=== PATIENT | male | born 1940 | race Caucasian/White ===

== ENCOUNTER 2017-12-15 01:33 | Inpatient (IN) | payer OTHER ==
[2017-12-15] VITALS (14 sets, daily range): BP systolic 111–168; BP diastolic 65–82; PULSE 65–114; TEMP 36.4–37.7; O2SAT 90–97; Ht 170.2 cm; Wt 90.9 kg
[~2017-12-15] VITALS: Ht 170.2 cm; Wt 90.9 kg
[~2017-12-15 01:33] MED LIST: ASPI81TA28 PO; GABA-113 PO; HYDR12.55 PO; INSDGI SC; INSUINJ7 SQ; LISI-461 PO; METF1000 PO; METO25TA56 PO; MULTTAB58 PO; NITR0.4D6 SL; ROSU20TA PO; TAMS0.4C38 PO
[2017-12-15] MEDS ORDERED: FENTANYL CITRATE INJ 50 MCG/1 ML 2 ML VIAL IV STA (01:59)
[2017-12-15] MEDS ORDERED: SODIUM CHLORIDE 0.9% 1000ML 1,000 ML IV STA ×2 (01:59→02:21)
--- NOTE | 2017-12-15 02:03 | EMERGENCY ROOM VISIT NOTE ---
History Report prepared by Sergio: Evelia Price Under the Supervision of: Dr. Fidel Menchaca M.D. 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 He states he has a fever, uncontrollable chills, SOB, shaky hands, and a sore throat which is scratchy. He also notes his tonsils are in pain and the patient notes he has a previous history of infections of his uvula. He denies any chest pain, headache, abdominal pain, diarrhea, or urinary symptoms. 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 No recent antibiotics. Took benoit-seltzer for sore throat without improvement. Nothing makes symptoms better nor worse. 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 A total of 10 systems reviewed and were otherwise negative. Past Medical & Surgical Medical Problems: (1) Colonoscopy (2) Diabetes mellitus type 2 (3) Diabetic peripheral neuropathy (4) DYSFUNCT EUSTACHIAN TUBE (5) History of lumbar laminectomy for decompression of spinal cord (6) Tachycardia (7) Transient ischemic attack Family History Cancer Diabetes mellitus Gallbladder disease Heart disease Hypertension Kidney disease Kidney stones Lung disease Seizures Social History Smoking Status: Never Smoker Smokeless Tobacco Use: No Alcohol Use: none Marital Status: Housing Status: lives alone Occupation Status: retired Current/Historical Medications Scheduled Aspirin (Aspirin Ec), 81 MG PO DAILY Cholecalciferol (Vitamin D3), 1,000 UNITS PO DAILY Gabapentin (Neurontin), 300 MG PO BID Hydrochlorothiazide (Hydrochlorothiazide), 12.5 MG PO DAILY Insulin Glargine (Lantus), 20 UNITS SC QAM Insulin Regular (Human) (Novolin R U-100), SQ UD Lisinopril (Zestril), 20 MG PO DAILY Metformin Hcl (Glucophage), 1,000 MG PO BID Metoprolol Tartrate (Lopressor) (Lopressor), 12.5 MG PO BID Multiple Vitamin (Multivitamin), 1 TAB PO DAILY Nitroglycerin (Nitroglycerin), 0.4 MG SL PRN Rosuvastatin Calcium (Crestor), 20 MG PO DAILY Tamsulosin Hcl (Flomax), 0.4 MG PO DAILY Allergies Coded Allergies: No Known Allergies (Verified , 11/30/17) Physical Exam Vital Signs Date Time Temp Pulse Resp B/P (MAP) Pulse Ox O2 Delivery O2 Flow Rate FiO2 12/15/17 03:44 126 24 144/75 93 Room Air 12/15/17 02:56 120 22 142/80 96 Room Air 12/15/17 01:59 96 Room Air 12/15/17 01:52 123 12/15/17 01:40 36.7 91 26 109/77 97 Room Air Physical Exam GENERAL: Patient is ill and uncomfortable appearing and in moderate distress. Shaking in rigors. EYES: No scleral icterus, unremarkable pupils. ENT: Mucous membranes moist, no nasal congestion. Large prominent uvula that is erythematous and tender to palpation. NECK: No masses appreciated, no meningismus, trachea is midline. RESPIRATORY: No dyspnea. Clear to auscultation and equal bilaterally. No wheeze , no rhonchi. CARDIOVASCULAR: Tachycardic rate and regular rhythm. No murmurs, rubs, gallops appreciated. GASTROINTESTINAL: Abdomen soft, nontender, no peritonitis. Bowel sounds positive. No masses appreciated. BACK: No midline tenderness, no CVA tenderness EXTREMITIES: Normal motion all extremities, no cyanosis, no edema. NEUROLOGIC: Alert and oriented, no acute motor or sensory deficits, no focal weakness, cranial nerves grossly intact. SKIN: No rash, no jaundice, no diaphoresis. Medical Decision & Procedures ER Provider Diagnostic Interpretation: Radiology results and stated below per my review and interpretation: 1 VIEW CHEST Haziness in the right lower lung benitez. New from chest xray 12/2012. Infiltrate versus atelectasis. Nodule in the left perihilar region which is new from previous chest xray. No lobar infiltrate or effusion appreciated. Status post cabbage Laboratory Results 12/15/17 01:50 Red Blood Count 4.59, Mean Corpuscular Volume 91.1, Mean Corpuscular Hemoglobin 30.9, Mean Corpuscular Hemoglobin Concent 34.0, Mean Platelet Volume 11.1, Neutrophils (%) (Auto) 73.1, Lymphocytes (%) (Auto) 17.0, Monocytes (%) (Auto) 5.5, Eosinophils (%) (Auto) 3.8, Basophils (%) (Auto) 0.4, Neutrophils # (Auto) 7.67, Lymphocytes # (Auto) 1.78, Monocytes # (Auto) 0.58, Eosinophils # (Auto) 0.40, Basophils # (Auto) 0.04 12/15/17 01:50 Test 12/15/17 01:50 12/15/17 02:07 12/15/17 02:10 12/15/17 02:16 White Blood Count 10.49 K/uL (4.8-10.8) Red Blood Count 4.59 M/uL (4.7-6.1) Hemoglobin 14.2 g/dL (14.0-18.0) Hematocrit 41.8 % (42-52) Mean Corpuscular Volume 91.1 fL (80-100) Mean Corpuscular Hemoglobin 30.9 pg (25-34) Mean Corpuscular Hemoglobin Concent 34.0 g/dl (32-36) Platelet Count 176 K/uL (130-400) Mean Platelet Volume 11.1 fL (7.4-10.4) Neutrophils (%) (Auto) 73.1 % Lymphocytes (%) (Auto) 17.0 % Monocytes (%) (Auto) 5.5 % Eosinophils (%) (Auto) 3.8 % Basophils (%) (Auto) 0.4 % Neutrophils # (Auto) 7.67 K/uL (1.4-6.5) Lymphocytes # (Auto) 1.78 K/uL (1.2-3.4) Monocytes # (Auto) 0.58 K/uL (0.11-0.59) Eosinophils # (Auto) 0.40 K/uL (0-0.5) Basophils # (Auto) 0.04 K/uL (0-0.2) RDW Standard Deviation 42.0 fL (36.4-46.3) RDW Coefficient of Variation 12.6 % (11.5-14.5) Immature Granulocyte % (Auto) 0.2 % Immature Granulocyte # (Auto) 0.02 K/uL (0.00-0.02) Prothrombin Time 10.3 SECONDS (9.0-12.0) Prothromb Time International Ratio 1.0 (0.9-1.1) Est Creatinine Clear Calc Drug Dose 49.5 ml/min Estimated GFR () 58.9 Estimated GFR (Non- 50.8 BUN/Creatinine Ratio 11.9 (10-20) Calcium Level 8.7 mg/dl (8.5-10.1) Magnesium Level 1.6 mg/dl (1.8-2.4) Total Bilirubin 0.5 mg/dl (0.2-1) Direct Bilirubin 0.2 mg/dl (0-0.2) Aspartate Amino Transf (AST/SGOT) 32 U/L (15-37) Alanine Aminotransferase (ALT/SGPT) 32 U/L (12-78) Alkaline Phosphatase 64 U/L (45-117) Total Creatine Kinase 196 U/L (39-308) Creatine Kinase MB 4.0 ng/ml (0.5-3.6) Creatine Kinase MB Ratio 2.0 (0-3.0) Troponin I < 0.015 ng/ml (0-0.045) Total Protein 7.4 gm/dl (6.4-8.2) Albumin 3.9 gm/dl (3.4-5.0) Procalcitonin 0.06 ng/ml (0-0.5) Bedside Lactic Acid Venous 4.47 mmol/L (0.90-1.70) Bedside Hemoglobin 13.9 g/dl (14.0-18.0) Bedside Hematocrit 41 % (42-52) Bedside Sodium 139 mEq/L (135-144) Bedside Potassium 4.3 mEq/L (3.3-5.0) Bedside Chloride 98 mEq/L (101-112) Bedside Total CO2 27 mEq/l (24-31) Anion Gap 20.0 mmol/L (16-25) Bedside Blood Urea Nitrogen 15 mg/dl (7-18) Bedside Creatinine 1.1 mg/dl (0.6-1.3) Bedside Glucose (other) 157 mg/dl (70-99) Bedside Ionized Calcium (Lawrence) 1.03 mmol/l (1.12-1.32) Test 8/4/18 03:43 Lactic Acid Level 1.5 mmol/L (0.4-2.0) Laboratory results as reviewed by me. Medications Administered Medications (Trade) Dose Ordered Sig/Kerri Route Start Time Stop Time Status Last Admin Dose Admin Fentanyl Citrate (Fentanyl Inj) 50 mcg NOW STAT IV 12/15/17 01:59 12/15/17 02:00 DC 12/15/17 02:03 50 MCG Sodium Chloride 1,000 ml @ 999 mls/hr Q1H1M STAT IV 12/15/17 01:59 12/15/17 02:59 DC 12/15/17 02:03 999 MLS/HR Acetaminophen (Tylenol Tab) 1,000 mg NOW STAT PO 12/15/17 02:09 12/15/17 02:10 DC 12/15/17 02:21 1,000 MG Sodium Chloride 1,000 ml @ 999 mls/hr Q1H1M STAT IV 12/15/17 02:21 12/15/17 03:21 DC 12/15/17 02:27 999 MLS/HR Sodium Chloride 500 ml @ 999 mls/hr Q31M STAT IV 12/15/17 02:21 12/15/17 02:51 DC 12/15/17 02:27 999 MLS/HR Dexamethasone Sodium Phosphate (Dexamethasone Inj Pf) 10 mg NOW ONCE IV 12/15/17 03:00 12/15/17 03:01 DC 12/15/17 02:56 10 MG Piperacillin Sod/ Tazobactam Sod (Zosyn Iv) 4.5 gm NOW STAT IV 12/15/17 02:48 12/15/17 02:50 DC 12/15/17 02:56 4.5 GM Vancomycin HCl 1750 mg/Sodium Chloride 535 ml @ 200 mls/hr ONE STAT IV 12/15/17 02:48 12/15/17 05:28 DC 12/15/17 03:44 200 MLS/HR Magnesium Sulfate 100 ml @ 100 mls/hr NOW STAT IV 12/15/17 03:24 12/15/17 04:23 DC 12/15/17 04:18 100 MLS/HR Metoprolol Tartrate (Lopressor Tab) 12.5 mg 0355 ONCE PO 12/15/17 03:55 12/15/17 05:11 DC 12/15/17 06:07 12.5 MG ECG Per My Interpretation Indication: other (illness) Rate (beats per minute): 125 Rhythm: sinus tachycardia Findings: RBBB, ST depression (Deep, throughout the Septal and Lateral leads), no ectopy, other (poor baseline, no STEMI) Comparison ECG Date: 11/30/2017 Change: When compared to EKG from 11/30/2017, ST depressions and tachycardia are new. ED Course 0155: The patient was evaluated in room A11. A complete history and physical exam was performed. 0159: Ordered Sodium Chloride 1000 ml @ 999 mls/hr IV, Fentanyl 50 mcg IV 0221: Ordered Sodium Chloride 500 ml @ 999 mls/hr IV, Sodium Chloride 1000 ml @ 999 mls/hr IV 0248: Ordered Zosyn Iv 4.5 gm IV 0300: Ordered Dexamethasone Sodium Phosphate 10 mg IV 0313: Discussed the patient's case with Dr. Galeas, [facility] Hospitalist. The patient will be evaluated for further treatment and disposition. Medical Decision Differential: Viral, Pharyngitis, Cellulitis, Pneumonia, Influenza, Meningitis, Sepsis, Bacteremia, UTI/Pyelonephritis, Endocrine, Toxicologic, amongst other pathologies entertained. Septic appearing 77 yr old male arrives in rigors, tachycardia and ill appearing. 2 IVs and fluids started. Lactic acid quite elevated and blood cultures obtained. Emperic abx ordered as well. By exam no clear source of infection though he clearly has quite significant uvulitis. No evidence of pharyngeal abscess by exam. CXR clear. WBC is not at this time elevated, nor does have currently have fever but with tachy, rigors, diaphoresis and elevated lactate this must be presumed sepsis. EKG with tachy and ST depressions. No chest pain and Trop currently negative. Abdomen soft and non-tender. No evidence meningitis/encephalitis. UA clear. Patient vastly improved with IV fluids, Tylenol as well as Fentanyl for sore throat. Furthermore given IV decadron for treatment of enlarged uvula. Tachy did persist though improved. May be pericarditis variant given other viral symptoms but I feel this is unlikely ACS. Hospitalist consulted for further management. Medication Reconcilliation Current Medication List: was personally reviewed by me Consults Time Called: 0255 Consulting Physician: Dr. Galeas, [facility] Hospitalist Returned Call: [phone] Discussed the patient's case with Dr. Galeas, [facility] Hospitalist. The patient will be evaluated for further treatment and disposition. Impression Primary Impression: Sepsis Additional Impressions: Uvulitis Tachycardia Diffuse ST segment depression Critical Care I have personally spent greater than 30 minutes of critical care time in the direct management of this patient. This was a life/limb threatening event. This includes time spent evaluating patient, direct bedside care, chart review, placing orders, interpretation of diagnostic studies, discussion with consultants, patient, and family members, as well as other required patient management activities. This 30 minutes is in excess of all separately billable procedures. Scribe Attestation The scribe's documentation has been prepared under my direction and personally reviewed by me in its entirety. I confirm that the note above accurately reflects all work, treatment, procedures, and medical decision making performed by me. Departure Information Dispostion Being Evaluated By Hospitalist (Dr. Galeas, [facility] Hospitalist) Referrals Favian Calero M.D. (PCP) Patient Instructions My [facility] Sepsis Post Crystalloid Evaluation Date: Dec 15, 2017 Time: 01:55 Capillary Refill Exam Normal (less than 2 seconds) Cardiopulmonary Evaluation Lung Exam: normal breath sounds Heart Exam: + tachycardia Passive Leg Raise Negative (normal) Peripheral Pulse Evaluation Normal Skin Exam Unremarkable Vitals Last Vital Signs Documentation Date Time Temp Pulse Resp B/P (MAP) Pulse Ox O2 Delivery O2 Flow Rate FiO2 12/15/17 03:44 126 24 144/75 93 Room Air 12/15/17 01:40 36.7 Presence Of Severe Sepsis Problem Qualifiers
[2017-12-15] MEDS ORDERED: ACETAMINOPHEN 500 MG TAB PO STA (02:09)
[2017-12-15 02:14] LABS: BASO % 0.4 %; BASO ABS # 0.04 K/uL (0-0.2); EOS % 3.8 %; HEMATOCRIT 41.8 % (42-52); HEMOGLOBIN 14.2 g/dL (14.0-18.0); IG# 0.02 K/uL (0.00-0.02); LYMPH ABS # 1.78 K/uL (1.2-3.4); MEAN CELL VOLUME 91.1 fL (80-100); MEAN CORPUSCULAR HEMOGLOBIN 30.9 pg (25-34); MEAN PLATELET VOLUME 11.1 fL (7.4-10.4); MONO % 5.5 %; MONO ABS # 0.58 K/uL (0.11-0.59); NEUT % 73.1 %; NEUT ABS # 7.67 K/uL (1.4-6.5); PLATELET COUNT 176 K/uL (130-400); RED CELL DISTRIBUTION WIDTH CV 12.6 % (11.5-14.5); WHITE BLOOD COUNT 10.49 K/uL (4.8-10.8)
[2017-12-15] MEDS ORDERED: SODIUM CHLORIDE 0.9% 500ML 500 ML IV STA (02:21)
[2017-12-15 02:25] LABS: ISTAT CREATININE 1.1 mg/dl (0.6-1.3); ISTAT IONIZED CALCIUM 1.03 mmol/l (1.12-1.32); ISTAT POTASSIUM 4.3 mEq/L (3.3-5.0)
[2017-12-15 02:48] LABS: ALBUMIN 3.9 gm/dl (3.4-5.0); ALKALINE PHOSPHATASE 64 U/L (45-117); ALT/SGPT 32 U/L (12-78); AST/SGOT 32 U/L (15-37); BLOOD UREA NITROGEN 16 mg/dl (7-18); CALCIUM 8.7 mg/dl (8.5-10.1); CARBON DIOXIDE 28 mmol/L (21-32); CREATININE 1.33 mg/dl (0.60-1.40); GLUCOSE 145 mg/dl (70-99); SODIUM 140 mmol/L (136-145); TOTAL PROTEIN 7.4 gm/dl (6.4-8.2)
[2017-12-15] MEDS ORDERED: PIPERACILLIN/TAZOBACTAM 4.5 GM/100ML D5W IV STA (02:48)
[2017-12-15] MEDS ORDERED: VANCOMYCIN IV 1,750 MG in SODIUM CHLORIDE 0.9% 500ML 500 ML IV STA (02:48)
[2017-12-15] MEDS ORDERED: DEXAMETHASONE **PF** INJ 10 MG/ML VIAL IV ONE (03:00)
[2017-12-15] MEDS ORDERED: VANCOMYCIN CONSULT ACTIVE PRN (03:00)
[2017-12-15] MEDS ORDERED: MAGNESIUM SULFATE 1GM / D5W 100 ML IV STA (03:24)
[2017-12-15] MEDS ORDERED: LISI-725 PO (03:31)
[2017-12-15] MEDS ORDERED: HYDR12.55 PO (03:41)
[2017-12-15] MEDS ORDERED: GABA-113 PO (03:43)
[2017-12-15] MEDS ORDERED: ROSU20TA PO (03:44)
[2017-12-15] MEDS ORDERED: CHOL1000 PO (03:53)
[2017-12-15] MEDS ORDERED: METOPROLOL TARTRATE 25 MG TAB PO ONE ×2 (03:55→06:45)
[2017-12-15] MEDS ORDERED: DEXTROSE 50% 50 ML SYR IV PRN (04:00)
[2017-12-15] MEDS ORDERED: TRAMADOL HCL 50 MG TAB PO PRN (04:00)
[2017-12-15] MEDS ORDERED: ACETAMINOPHEN 325 MG TAB PO PRN (04:00)
[2017-12-15] MEDS ORDERED: GLUCAGON FOR INJ 1 MG VIAL SQ PRN (04:00)
[2017-12-15] MEDS ORDERED: PROCHLORPERAZINE INJ 5 MG in SYRINGE 4 ML IV PRN (04:00)
[2017-12-15] MEDS ORDERED: LORAZEPAM 2 MG/ML 1 ML VIAL IV PRN (04:00)
[2017-12-15] MEDS ORDERED: MoRPHine SULFATE 4 MG/ML 1 ML CARP\\VIAL IV PRN (04:00)
[2017-12-15] MEDS ORDERED: GLUCOSE 10 TABS/TUBE PO PRN (04:00)
[2017-12-15] MEDS ORDERED: CHLORASEPTIC 1.4% SOLN 180 ML BTL MT PRN (04:00)
[2017-12-15] MEDS ORDERED: LACTATED RINGER'S 1000ML 1,000 ML IV SCH ×2 (04:00→05:15)
[2017-12-15] MEDS ORDERED: CARBOHYDRATES FOR HYPOGLYCEMIA PO PRN (04:00)
[2017-12-15] MEDS ORDERED: NITROGLYCERIN 0.4 MG SL PER TAB CHARGE SL PRN (04:00)
[2017-12-15] MEDS ORDERED: GLUCOSE 40% GEL 15 GM TUBE PO PRN (04:00)
[2017-12-15] MEDS ORDERED: IV FLUIDS COMPLETED PRN (04:15)
[2017-12-15] MEDS ORDERED: OPTIRAY 320 IV PRN (04:15)
[2017-12-15] MEDS ORDERED: LEVALBUTEROL/IPRATROPIUM NEB INH PRN (04:15)
[2017-12-15] MEDS ORDERED: LEVALBUTEROL 1.25MG/0.5ML NEB INH PRN (04:45)
[2017-12-15] MEDS ORDERED: IPRATROPIUM BROMIDE NEB SOLN 0.02% 2.5 ML VIAL INH PRN (04:45)
[2017-12-15] MEDS ORDERED: INSULIN GLARGINE SOLOSTAR 100 UNITS/ML 3 ML PEN SC ONE ×2 (05:30→19:41)
[2017-12-15] MEDS ORDERED: INSULIN ASPART 100 UNITS/ML 3 ML PEN SC ONE (05:30)
[2017-12-15] MEDS ORDERED: CHLORASEPTIC 1.4% SOLN 180 ML BTL MT ONE (05:30)
[2017-12-15] MEDS: ENOXAPARIN 40 MG/0.4 ML SYR SC SCH (06:14)
[2017-12-15] MEDS ORDERED: MAGNESIUM SULFATE 1GM / D5W 100 ML IV ONE (06:45)
--- NOTE | 2017-12-15 06:48 | DIAGNOSTIC IMAGING REPORT ---
CT SCAN OF THE NECK WITH IV CONTRAST CLINICAL HISTORY: Sore throat. Odynophagia. Dyspnea. COMPARISON STUDY: Carotid artery ultrasound dated 12/30/2012. TECHNIQUE: Following the IV administration of 90 cc of Optiray 320, CT scan of the soft tissues of the neck was performed from the skull base to the upper chest. Images are reviewed in the axial, sagittal, and coronal planes. IV contrast was administered without complication. A dose lowering technique was utilized adhering to the principles of ALARA. CT DOSE: 668.91 mGy.cm FINDINGS: Pharynx: The nasopharynx, oropharynx, and laryngeal pharynx are normal in appearance. The pharyngeal airway is widely patent. There is no evidence of mass lesion. The vocal cords are symmetric. The parapharyngeal fat is well maintained. The prevertebral/retropharyngeal soft tissues are within normal limits. The epiglottis is normal. No fluid collection is seen. Lymphadenopathy: No cervical lymphadenopathy is seen Thyroid: Normal in size and attenuation. Salivary glands: The parotid and submandibular glands are within normal limits. Brain parenchyma: The visualized brain parenchyma at the skull base is normal in appearance noting age-related involutional change. Vascular structures: There is advanced atherosclerotic calcification of the carotid arteries. There is approximately 50% stenosis at the origin the right internal carotid artery. The carotid arteries and jugular veins are otherwise clear. Skeletal structures: The skeletal structures are osteopenic. Imaged portions of the calvarium at the skull base are within normal limits. The cervical spine appears intact noting multilevel spondylosis. No lytic or blastic lesion is seen. Orbits: The bony orbits are intact. Orbital contents are normal in appearance noting bilateral ocular lens implants. Sinuses and mastoids: There is a 2.1 cm retention cyst in the left maxillary antrum. Mild mucosal thickening is seen thoracic the frontal, ethmoidal, maxillary, and sphenoid sinuses. The mastoid air cells are well pneumatized. Upper chest: Midline sternotomy wires are noted. Visualized apical lung parenchyma is clear. There is atherosclerotic calcification of the thoracic aorta. IMPRESSION: No acute abnormality is identified. Electronically signed by: Jefe Padilla M.D. 12/15/2017 6:47 AM Dictated Date/Time: 12/15/2017 6:40 AM
[2017-12-15] MEDS: LEVALBUTEROL 1.25MG/0.5ML NEB INH SCH ×3 (07:26→18:46)
[2017-12-15] MEDS: IPRATROPIUM BROMIDE NEB SOLN 0.02% 2.5 ML VIAL INH SCH ×3 (07:26→18:46)
--- NOTE | 2017-12-15 08:51 | HISTORY & PHYSICAL EXAMINATION ---
DATE OF ADMISSION: 12/15/2017 PATIENT'S PRIMARY CARE DOCTOR: Dr. Calero. CHIEF COMPLAINT: Sore throat. HISTORY OF PRESENT ILLNESS: History was obtained from patient and records. Medical history is significant for CAD status post CABG, hx postof AF, chronic systolic/diastolic heart failure (EF 40-50% as outpatient cardiology notes 2012), hypertension, hyperlipidemia, DM2 insulin requiring, TIA as per records, chronic back pain. Recent confinement last December 2012 for syncope, upper respiratory tract infection. Four days history of sore throat, more on the left, odynophagia -possibly from some trauma from swallowing some chips. Patient' s sore throat going to the left ear. Has happened in the past. Some chills, [place] to [place]. No chest pain, no shortness of breath, no abdominal pain. No diarrhea, no dysuria. Cough productive of clear sputum. Fair appetite. Patient seen in the ER. Received IV fluids, Vancomycin and Zosyn for possible sepsis. IV Decadron also given at the ER. MEDICAL HISTORY: As above. SURGERIES: He has had CABG, back surgery, appendectomy. HOME MEDICATIONS: Include lisinopril HCTZ, Neurontin, metformin, Lopressor, tamsulosin, sildenafil, Nitrostat, Lantus, potassium chloride, rosuvastatin, Advil, Viagra. ALLERGIES: No known drug allergies. FAMILY HISTORY: History of heart disease. PERSONAL AND SOCIAL HISTORY: Past tobacco abuse. No EtOH intake. REVIEW OF SYSTEMS: As per HPI, all 10 systems reviewed, all other ROS negative. PHYSICAL EXAMINATION: VITAL SIGNS: Blood pressure was noted to be 109/79, pulse rate 126, RR 24, temperature 36.7, sats 97% on room air. GENERAL: Noted to be anxious, obese, slightly uncomfortable, no respiratory distress, no stridor, intermittent junky coughing spells SKIN: Normal color, warm. HEENT: Partial alopecia. Keener palpebral conjunctivae. No ptosis. abrasion on the left EAC, intact TM. Mild pharyngeal congestion. No trismus. NECK: Short, supple. CHEST: Decreased breath sounds, expiratory wheezes which clear on coughing. ABDOMEN: Distention, nontender. EXTREMITIES: No edema. No tenderness, no other gross deformities. NEUROLOGIC: Coherent, no gross focality. LABORATORY DATA: Hemoglobin is 14.2, hematocrit 41.8, white blood cell count 10.45, platelets 176. Sodium noted to be 140, potassium 4, chloride 102, CO2 28, glucose 145. Procalcitonin was normal. Point of care lactic acid initially 4 later 1.5. Hemoglobin A1c from September 2017 was 8.2. Chest x-ray as per my interpretation, atelectasis, cardiomegaly. UA showed ketones. Lactic acid initially 4. EKG as per my interpretation, rate 125, junctional rhythm, RBBB ASSESSMENT AND PLAN: 1. Tachycardia secondary to viral illness Pharyngitis/bronchitis. 2. Chronic systolic/diastolic heart failure. EF 40-50% from 2013 outpatient Cardiology notes Patient on the dry side. 3. Coronary artery disease status post coronary artery bypass graft. 4. History post CABG AF as per records 5. HTN, stable 6. DM2 on oral meds, suboptimal control as of recent outpatient hemoglobin A1c 7. hx TIA as per records Observation PCU IV fluids, hold home diuretics until patient euvolemic. Supportive measures for viral illness for now CS, hold off on additional antibiotics until definite bacterial focus found. CT neck soft tissue RE sore throat, odynophagia basal insulin, ISS BG goal 140-180. DVT prophylaxis with Lovenox subQ. Full code. Addendum : Upon arrival at the floor around 6 AM, I was made aware by RN of transient burst rapid atrial flutter on the monitor. Increase beta-shree dose dose to 25 mg p.o. twice daily for now TTE, Cardiology consult RE paroxysmal atrial flutter MTDD
[2017-12-15] MEDS: TAMSULOSIN HCL 0.4 MG CAP PO SCH (08:58)
[2017-12-15] MEDS: ASPIRIN 81 MG ECTAB PO SCH (08:58)
[2017-12-15] MEDS: MULTIVITAMIN TAB PO SCH (08:58)
--- NOTE | 2017-12-15 08:58 | DIAGNOSTIC IMAGING REPORT ---
SINGLE VIEW CHEST CLINICAL HISTORY: Fever FINDINGS: An AP, portable, upright chest radiograph is compared to study dated 12/30/2012. The examination is degraded by portable technique and apical lordotic positioning. The patient is status post midline sternotomy. The heart is enlarged and there is atherosclerotic calcification of the thoracic aorta. There are patchy airspace opacities at the right lung base. The lungs are otherwise clear. No large pleural effusion or pneumothorax is seen. The skeletal structures are osteopenic. Degenerative change is seen in the shoulders. The bony thorax is grossly intact. IMPRESSION: 1. Cardiomegaly without radiographic evidence of congestive failure. 2. There are patchy airspace opacities at the right lung base. This could represent atelectasis versus developing pneumonia. Clinical correlation will be required and radiographic follow-up to resolution is recommended. Electronically signed by: Jefe Padilla M.D. 12/15/2017 8:57 AM Dictated Date/Time: 12/15/2017 8:56 AM
[2017-12-15] MEDS: GABAPENTIN 300 MG CAP PO SCH ×2 (09:00→21:23)
[2017-12-15] MEDS ORDERED: LEVALBUTEROL/IPRATROPIUM NEB INH SCH (09:00)
[2017-12-15] MEDS: ROSUVASTATIN CALCIUM 20 MG TAB PO SCH (09:00)
[2017-12-15] MEDS: LISINOPRIL 20 MG TAB PO SCH (09:01)
[2017-12-15] MEDS ORDERED: PERFLUTREN LIPID MICROSPHERE (DEFINITY) IV ONE (09:46)
--- NOTE | 2017-12-15 11:12 | ECHOCARDIOGRAM REPORT ---
*NOTICE TO RECEIVING [employer] This information is strictly Confidential and protected under [place] law. [place] law prohibits you from making any further disclosure of this information unless further disclosure is expressly permitted by the written consent of the person to whom it pertains or is authorized by law. A general authorization for the release of medical or other information is not sufficient for this purpose. Hospital accepts no responsibility if the information is made available to any other person, INCLUDING THE PATIENT. Interpretation Summary * Name: TRAM ABREU Study Date: 12/15/2017 09:20 AM BP: 121/67 mmHg * Patient Location: [facility]\S\N285\S\2 HR: 114 * : 1940 (M/d/yyy) Gender: Male Height: 67 in * Age: 77 yrs Ethnicity: [place] Weight: 202 lb * Ordering Physician: Jose R Galeas * Performed By: Zina Reese RDCS * * Reason For Study: A-FLUTTER * BSA: 2.0 m2 * The study was technically adequate. * Compared to prior study, changes are noted. * -- Conclusions -- * Ejection Fraction = 60-65%. * The left atrium is mildly dilated. * Aortic valve sclerosis mild, without significant aortic valvular stenosis. * There is mild tricuspid regurgitation. * The estimated systolic pulmonary arterial pressure is 42 mmHg. * Grade I diastolic dysfunction, (abnormal relaxation pattern). Procedure Details * A complete two-dimensional transthoracic echocardiogram was performed (2D, M-mode, Doppler and color flow Doppler). * A contrast injection of Definity was performed to improve assessment of LV function. * Contrast was injected into an intravenous site in the left arm. * One vial of Definity ultrasound contrast was diluted in normal saline to a total volume of 10 ml. A total of '1.5' ml of solution was administered during imaging. * Lot # [id number] of Definity utilized for procedure. * Expiration date 11/29. * The attending nurse who injected the contrast agent was YSABEL HOLLINGSWORTH RN. Left Ventricle * The left ventricle is normal in size. * There is normal left ventricular wall thickness. * Ejection Fraction = 60-65%. * Left ventricular systolic function is normal. * No regional wall motion abnormalities noted. Right Ventricle * The right ventricle is normal size. * The right ventricular systolic function is normal as assessed by tricuspid annular plane systolic excursion (TAPSE) (normal >1.5 cm). Atria * The left atrium is mildly dilated. * Right atrial size is normal. * There is no evidence of atrial septal defect, but resolution does not allow assessment for a patent foramen ovale. Mitral Valve * There is moderate mitral annular calcification. * Mild focal calcification involving the tip of the anterior mitral valve leaflet. * There is no mitral valve stenosis. * There is trace mitral regurgitation. Tricuspid Valve * The tricuspid valve is normal. * There is no tricuspid stenosis. * There is mild tricuspid regurgitation. * The estimated systolic pulmonary arterial pressure is 42 mmHg. Aortic Valve * The aortic valve is trileaflet. * Aortic valve sclerosis mild, without significant aortic valvular stenosis. * Aortic stenosis is absent. * There is no significant aortic regurgitation. Pulmonic Valve * The pulmonary valve is not well seen, but the Doppler examination is normal without significant regurgitation or stenosis. Great Vessels * The aortic root is normal size. Pericardium/Pleural * There is no pericardial effusion. Great Vessels * IVC not well-visualized. Left Ventricular Diastolic Function * Grade I diastolic dysfunction, (abnormal relaxation pattern). MMode 2D Measurements and Calculations IVSd 0.95 cm IVSs 1.7 cm LVIDd 4.8 cm LVIDs 3.1 cm LVPWd 1.0 cm LVPWs 1.7 cm IVS/LVPW 0.91 FS 35.8 % EDV(Teich) 107.1 ml ESV(Teich) 37.2 ml EF(Teich) 65.2 % EDV(cubed) 110.0 ml ESV(cubed) 29.1 ml EF(cubed) 73.5 % % IVS thick 76.4 % % LVPW thick 63.4 % LV mass(C)d 168.9 grams LV mass(C)dI 83.2 grams/m\S\2 LV mass(C)s 200.3 grams LV mass(C)sI 98.7 grams/m\S\2 SV(Teich) 69.9 ml SI(Teich) 34.4 ml/m\S\2 SV(cubed) 80.9 ml SI(cubed) 39.8 ml/m\S\2 ACS 1.1 cm LVOT diam 1.7 cm LVOT area 2.2 cm\S\2 LVAd ap4 32.5 cm\S\2 LVLd ap4 8.2 cm EDV(MOD-sp4) 104.2 ml EDV(sp4-el) 109.4 ml LVAs ap4 16.6 cm\S\2 LVLs ap4 6.6 cm ESV(MOD-sp4) 34.1 ml ESV(sp4-el) 35.2 ml EF(MOD-sp4) 67.3 % EF(sp4-el) 67.8 % LVAd ap2 29.6 cm\S\2 LVLd ap2 7.5 cm EDV(MOD-sp2) 98.2 ml EDV(sp2-el) 98.9 ml LVAs ap2 15.5 cm\S\2 LVLs ap2 6.4 cm ESV(MOD-sp2) 30.9 ml ESV(sp2-el) 31.7 ml EF(MOD-sp2) 68.5 % EF(sp2-el) 67.9 % LVLd %diff -8.98 % EDV(MOD-bp) 105.1 ml LVLs %diff -2.98 % ESV(MOD-bp) 32.9 ml EF(MOD-bp) 68.7 % SV(MOD-sp4) 70.1 ml SI(MOD-sp4) 34.5 ml/m\S\2 SV(MOD-sp2) 67.3 ml SI(MOD-sp2) 33.1 ml/m\S\2 SV(MOD-bp) 72.2 ml SI(MOD-bp) 35.6 ml/m\S\2 SV(sp4-el) 74.1 ml SI(sp4-el) 36.5 ml/m\S\2 SV(sp2-el) 67.2 ml SI(sp2-el) 33.1 ml/m\S\2 Doppler Measurements and Calculations MV E max emily 93.9 cm/sec MV A max emily 120.0 cm/sec MV E/A 0.78 MV dec time 0.15 sec Ao V2 max 128.3 cm/sec Ao max PG 6.6 mmHg Ao max PG (full) 1.7 mmHg DOMINIK(V,A) 1.9 cm\S\2 DOMINIK(V,D) 1.9 cm\S\2 LV V1 max PG 4.9 mmHg LV V1 max 110.2 cm/sec MR max emily 420.5 cm/sec MR max PG 71.2 mmHg PA V2 max 82.5 cm/sec PA max PG 2.7 mmHg TR max emily 316.7 cm/sec
[2017-12-15] MEDS: INSULIN ASPART 100 UNITS/ML 3 ML PEN SC SCH ×3 (13:18→21:30)
--- NOTE | 2017-12-15 14:03 | Progress Note ---
Subjective Date of Service: Dec 15, 2017. Subjective Pt evaluation today including: conversation w/ patient, conversation w/ family , physical exam, lab review, review of studies, conversation w/ farm consultant, review of inpatient medication list Saw/examined the patient in room 285 States his throat is improving slightly Coughing more than before; hypoxic as per nursing; requiring 3L of O2 Metoprolol titrated upwards, HRs improving; denies palpitations/chest pain Problem List Medical Problems: (1) Diffuse ST segment depression Status: Acute (2) Hypertension Status: Acute (3) Sepsis Status: Acute (4) Uvulitis Status: Acute Review of Systems Respiratory: + cough, + sputum, + shortness of breath, No wheezing, No dyspnea on exertion, No dyspnea at rest, No hemoptysis Cardiac: No chest pain, No edema, No palpitations Medications Current Inpatient Medications Medications (Trade) Dose Ordered Sig/Kerri Route Start Time Stop Time Status Last Admin Dose Admin Insulin Glargine (Lantus Solostar Pen) 15 units QAM SC 12/16/17 09:00 01/15/18 08:59 Enoxaparin Sodium (Lovenox Inj) 40 mg Q24H SC 12/15/17 06:00 01/14/18 05:59 12/15/17 06:14 40 MG Acetaminophen (Tylenol Tab) 650 mg Q4H PRN PO 12/15/17 04:00 01/14/18 03:59 Nitroglycerin (Nitrostat Tab) 0.4 mg UD PRN SL 12/15/17 04:00 01/14/18 03:59 Insulin Aspart (novoLOG ASPART) SLIDING SCALE If C... ACHS SC 12/15/17 11:00 01/14/18 10:59 12/15/17 13:18 8 UNITS Glucose (Glucose 40% Gel) 15-30 GRAMS 15 GRAMS... UD PRN PO 12/15/17 04:00 01/14/18 03:59 Glucose (Glucose Chew Tab) 4-8 Tablets 4 Tabl... UD PRN PO 12/15/17 04:00 01/14/18 03:59 Dextrose (Dextrose 50% 50ML Syringe) 25-50ML 25ML FOR ... UD PRN IV 12/15/17 04:00 01/14/18 03:59 Glucagon (Glucagon Inj) 1 mg UD PRN SQ 12/15/17 04:00 01/14/18 03:59 Carbohydrates (Carbohydrates For Hypoglycemia) 15-30 GRAMS 15 grams if BSG 54-69... UD PRN PO 12/15/17 04:00 01/14/18 03:59 Prochlorperazine Edisylate 5 mg/ Syringe 5 ml @ 5 mls/min Q6H PRN IV 12/15/17 04:00 01/14/18 03:59 Tramadol HCl (Ultram Tab) 25 mg Q6H PRN PO 12/15/17 04:00 01/14/18 03:59 Morphine Sulfate (MoRPHine SULFATE INJ) 4 mg Q6H PRN IV 12/15/17 04:00 12/29/17 03:59 Lorazepam (Ativan Inj) 0.25 mg Q4H PRN IV 12/15/17 04:00 01/14/18 03:59 Phenol (Chloraseptic 1.4% [place]) 4 sprays Q2H PRN MT 12/15/17 04:00 01/14/18 03:59 Ioversol (Optiray 320) 100 ml UD PRN IV 12/15/17 04:15 12/19/17 04:14 Aspirin (Ecotrin Tab) 81 mg DAILY PO 12/15/17 09:00 01/14/18 08:59 12/15/17 08:58 81 MG Gabapentin (Neurontin Cap) 300 mg BID PO 12/15/17 09:00 01/14/18 08:59 12/15/17 09:00 300 MG Lisinopril (Zestril Tab) 20 mg DAILY PO 12/15/17 09:00 01/14/18 08:59 12/15/17 09:01 20 MG Multivitamins (Multivitamin Tab) 1 tab DAILY PO 12/15/17 09:00 01/14/18 08:59 12/15/17 08:58 1 TAB Rosuvastatin Calcium (Crestor Tab) 20 mg DAILY PO 12/15/17 09:00 01/14/18 08:59 12/15/17 09:00 20 MG Tamsulosin HCl (Flomax Cap) 0.4 mg DAILY PO 12/15/17 09:00 01/14/18 08:59 8/4/18 08:58 0.4 MG Miscellaneous (Iv Fluids Completed) 1 ea PRN PRN N/A 12/15/17 04:15 12/15/18 04:14 Lactated Ringer's 1,000 ml @ 80 mls/hr [id number] IV 12/15/17 05:15 12/15/17 17:44 12/15/17 06:06 80 MLS/HR Ipratropium [place] (Atrovent 0.02% 0.5MG/2.5ML Neb) 0.5 mg Q4H PRN INH 12/15/17 04:45 01/14/18 04:44 Levalbuterol (Xopenex 1.25MG/ 0.5ML Neb) 1.25 mg Q4H PRN INH 12/15/17 04:45 01/14/18 04:44 Metoprolol Tartrate (Lopressor Tab) 25 mg BID PO 12/15/17 21:00 01/14/18 20:59 Ipratropium [place] (Atrovent 0.02% 0.5MG/2.5ML Neb) 0.5 mg Q6R INH 12/15/17 09:00 01/14/18 08:59 12/15/17 07:26 0.5 MG Levalbuterol (Xopenex 1.25MG/ 0.5ML Neb) 1.25 mg Q6R INH 12/15/17 09:00 01/14/18 08:59 12/15/17 07:26 1.25 MG Objective Vital Signs Date Time Temp Pulse Resp B/P (MAP) Pulse Ox O2 Delivery O2 Flow Rate FiO2 12/15/17 13:26 36.7 97 24 168/82 (110) 91 Nasal Cannula 3.0 12/15/17 11:36 37.1 71 20 120/70 (87) 92 12/15/17 07:28 37.0 114 20 121/67 (85) 90 12/15/17 07:26 86 18 96 Room Air 12/15/17 06:50 37.7 104 20 134/72 91 Room Air 12/15/17 06:06 94 124/66 (85) 12/15/17 04:27 119 21 144/75 93 12/15/17 03:44 126 24 144/75 93 Room Air 12/15/17 02:56 120 22 142/80 96 Room Air 12/15/17 01:59 96 Room Air 12/15/17 01:52 123 12/15/17 01:40 36.7 91 26 109/77 97 Room Air Physical Exam General Appearance: no apparent distress Respiratory/Chest: no respiratory distress, no accessory muscle use, + decreased breath sounds Cardiovascular: regular rate, rhythm, no edema, no murmur Extremities: normal inspection, no pedal edema Laboratory Results Last 24 Hours Test 12/15/17 01:50 12/15/17 02:07 12/15/17 02:10 12/15/17 02:16 White Blood Count 10.49 K/uL Red Blood Count 4.59 M/uL Hemoglobin 14.2 g/dL Hematocrit 41.8 % Mean Corpuscular Volume 91.1 fL Mean Corpuscular Hemoglobin 30.9 pg Mean Corpuscular Hemoglobin Concent 34.0 g/dl Platelet Count 176 K/uL Mean Platelet Volume 11.1 fL Neutrophils (%) (Auto) 73.1 % Lymphocytes (%) (Auto) 17.0 % Monocytes (%) (Auto) 5.5 % Eosinophils (%) (Auto) 3.8 % Basophils (%) (Auto) 0.4 % Neutrophils # (Auto) 7.67 K/uL Lymphocytes # (Auto) 1.78 K/uL Monocytes # (Auto) 0.58 K/uL Eosinophils # (Auto) 0.40 K/uL Basophils # (Auto) 0.04 K/uL RDW Standard Deviation 42.0 fL RDW Coefficient of Variation 12.6 % Immature Granulocyte % (Auto) 0.2 % Immature Granulocyte # (Auto) 0.02 K/uL Prothrombin Time 10.3 SECONDS Prothromb Time International Ratio 1.0 Sodium Level 140 mmol/L Potassium Level 4.0 mmol/L Chloride Level 102 mmol/L Carbon Dioxide Level 28 mmol/L Anion Gap 10.0 mmol/L 20.0 mmol/L Blood Urea Nitrogen 16 mg/dl Creatinine 1.33 mg/dl Est Creatinine Clear Calc Drug Dose 49.5 ml/min Estimated GFR () 58.9 Estimated GFR (Non- 50.8 BUN/Creatinine Ratio 11.9 Random Glucose 145 mg/dl Calcium Level 8.7 mg/dl Magnesium Level 1.6 mg/dl Total Bilirubin 0.5 mg/dl Direct Bilirubin 0.2 mg/dl Aspartate Amino Transf (AST/SGOT) 32 U/L Alanine Aminotransferase (ALT/SGPT) 32 U/L Alkaline Phosphatase 64 U/L Total Creatine Kinase 196 U/L Creatine Kinase MB 4.0 ng/ml Creatine Kinase MB Ratio 2.0 Troponin I < 0.015 ng/ml Total Protein 7.4 gm/dl Albumin 3.9 gm/dl Procalcitonin 0.06 ng/ml Bedside Lactic Acid Venous 4.47 mmol/L Bedside Hemoglobin 13.9 g/dl Bedside Hematocrit 41 % Bedside Sodium 139 mEq/L Bedside Potassium 4.3 mEq/L Bedside Chloride 98 mEq/L Bedside Total CO2 27 mEq/l Bedside Blood Urea Nitrogen 15 mg/dl Bedside Creatinine 1.1 mg/dl Bedside Glucose (other) 157 mg/dl Bedside Ionized Calcium ([place]) 1.03 mmol/l Test 12/15/17 03:43 12/15/17 04:00 12/15/17 06:03 12/15/17 07:35 Lactic Acid Level 1.5 mmol/L Urine Color YELLOW Urine Appearance CLEAR Urine pH 8.0 Urine Specific Rainbow 1.016 Urine Protein 1+ Urine Glucose (UA) NEG Urine Ketones 1+ Urine Occult Blood NEG Urine Nitrite NEG Urine Bilirubin NEG Urine Urobilinogen NEG Urine Leukocyte Esterase NEG Urine WBC (Auto) 1-5 /hpf Urine RBC (Auto) 0-4 /hpf Urine Hyaline Casts (Auto) 1-5 /lpf Urine Epithelial Cells (Auto) 10-20 /lpf Urine Bacteria (Auto) NEG Urine Sperm (Auto) PRESENT Bedside Glucose 220 mg/dl 224 mg/dl Test 12/15/17 11:26 Bedside Glucose 258 mg/dl Assessment and Plan This is a 77 year old male with a past medical history of CAD s/p CABG, post-op atrial fibrillation, HTN, HLD, insulin dependent DM2, hx. of TIA - presents with sore throat, has had recurrent throat infections Viral Pharyngitis? Hypoxia - patient with hypoxic episode into the 60s-70s - improved with 3L of O2 - states he's had sore throat/infections in the past, uses azithromycin for it at times as needed - will start Unasyn due to possible aspiration - O2 as needed - duonebs as needed - will hold off on any steroid use Transient Atrial Flutter/Atrial Fibrillation - appreciate cardiology input - atrial flutter/fibrillation on tele - b-shree increased - if recurrent AF; will start IV heparin with transition to oral anticoagulant CAD s/p CABG - no acute coronary issues - continue aspirin, statin, b-shree Insulin Dependent DM2 - received IV Decadron in the ER; causing elevated BSGs - currently on Lantus 15 units in the AM and a sliding scale - monitor and adjust as needed HTN - b-shree dose increased - Lisinopril 20mg daily - patient requesting to d/c HCTZ as an outpatient medication; will monitor BP and likely adjust Lisinopril if needed DVT ppx - Lovenox FULL CODE
--- NOTE | 2017-12-15 14:20 | CARDIOLOGY CONSULTATION ---
DATE OF CONSULTATION: 12/15/2017 CARDIOLOGY CONSULTATION PRIMARY CARE PHYSICIAN: Dr. Favian Calero. REFERRING PHYSICIAN: Dr. Jose R Galeas. REASON FOR CONSULTATION: Tachycardia. CHIEF COMPLAINT ON ADMISSION: Scratchy throat, illness, fever or chills. HISTORY OF PRESENT ILLNESS: Mr. Enriquez is a 77-year-old gentleman who complains of feeling ill approximately 5 days prior to arrival. Notes subjective fevers, uncontrollable chills and rigors. Reports cough with scant sputum production as well as a significant throat discomfort described as a scratchy sensation. He has experienced these symptoms in the past which were successfully treated with antibiotics. Denies chest pain, shortness of breath, or palpitations. Upon arrival to the ER, he was noted to be tachycardic with a heart rate of approximately 125 beats per minute. Review of ECG and telemetry strips demonstrates atrial flutter with primarily 2:1 conduction. He then converted to atrial fibrillation at approximately 6:28 a.m. today. Patient ultimately converted to sinus rhythm at 8:10 a.m. Remains in sinus rhythm at this time. Fevers recorded overnight. Feeling somewhat better since admission. REVIEW OF SYSTEMS: The pertinent positive noted above, a comprehensive 10-system review is otherwise negative. PAST MEDICAL HISTORY: 1. Coronary artery disease status post coronary artery bypass grafting. 2. Diabetes with neuropathy. 3. Myocardial infarction. 4. TIA. 5. Spinal stenosis. 6. Postoperative paroxysmal atrial fibrillation. PAST SURGICAL HISTORY: 1. Coronary artery bypass grafting. 2. Lumbar laminectomy and decompression. 3. Colonoscopy. FAMILY HISTORY: Negative for premature CAD or sudden cardiac . SOCIAL HISTORY: Lifelong nonsmoker. He is and lives alone. ALLERGIES: No known drug allergies. HOME MEDICATIONS: 1. Aspirin 81 mg daily. 2. Neurontin 300 mg twice daily. 3. Hydrochlorothiazide 12.5 mg daily. 4. Lantus 20 units in the a.m. 5. Novolin subQ daily. 6. Zestril 20 mg daily. 7. Glucophage 1000 mg twice daily. 8. Lopressor 12.5 mg twice daily. 9. Multivitamin daily. 10. Sublingual nitroglycerin as needed. 11. Rosuvastatin 20 mg daily. 12. Flomax 0.4 mg daily. LABORATORY DATA: Troponin undetectable x1 set. Sodium 139, potassium 4.3, chloride 98, CO2 is 27, BUN is 15, creatinine is 1.1. Lactic acid 1.5, point of care lactic acid 4.47. Serum magnesium of 1.6. White blood cell count 10.49, hemoglobin 13.9, platelet count 176, neutrophils 7.67. INR is 1.0. Chest x-ray on admission: No evidence of congestive heart failure. Patchy airspace opacity at the right base, possible atelectasis versus early pneumonia. PHYSICAL EXAMINATION: VITAL SIGNS: Temperature is 37.7 degrees centigrade, pulse 86 beats per minute and regular, respiratory rate 20 breaths per minute, blood pressure 121/67, SAO2 is 90% on room air. GENERAL: NAD, awake, alert and oriented x3. HEENT: His mucous membranes are moist. No scleral icterus. Conjunctivae are pink. NECK: Supple, mildly tender. There is no carotid bruit. HEART: Regular with a normal S1 and S2. No murmur appreciated. LUNGS: Demonstrate scattered rhonchi with expiratory wheezing bilaterally. No rales. ABDOMEN: Soft, nontender. No rebound or guarding. EXTREMITIES: Warm and dry without clubbing, cyanosis or edema. NEUROLOGIC: Demonstrates no focal motor deficit. FINAL IMPRESSION: 1. Paroxysmal atrial flutter/fibrillation with spontaneous conversion to sinus rhythm. Dysrhythmia likely secondary to febrile illness, acute infectious process and electrolyte derangement. 2. Chronic coronary artery disease with history of prior coronary artery bypass grafting. Repeat echocardiogram demonstrates preserved left ventricular systolic function without regional wall motion abnormality. 3. Diabetes type 2. 4. Pharyngitis and possible community-acquired pneumonia. 5. Right bundle-branch block. PLAN AND RECOMMENDATIONS: The natural history and pathophysiology of atrial fibrillation/flutter discussed with the patient. Dysrhythmia appears to have a reversible cause at this time as noted above. We will monitor telemetry for recurrence. Would recommend addition of intravenous anticoagulation with recurrent episodes during hospitalization with plans for at least short-term anticoagulation if needed. We will continue aspirin at this time. Beta shree titrated to 25 mg twice daily. Other cardiovascular medications will be continued as listed above. Antibiotic therapy and management of pharyngitis/possible community-acquired pneumonia per internal medicine service. Thank you for allowing me to participate in the care of your patient.
[2017-12-15] MEDS: AMPICILLIN/SULBACTAM SOD INJ 3,000 MG in SODIUM CHLORIDE 0.9% 100ML 100 ML IV SCH ×2 (14:31→20:17)
[2017-12-15] MEDS ORDERED: METOPROLOL TARTRATE 25 MG TAB PO SCH (21:00)
[2017-12-15] MEDS: METOPROLOL TARTRATE 25 MG TAB PO SCH (21:24)
[2017-12-16] VITALS (12 sets, daily range): BP systolic 115–159; BP diastolic 66–77; PULSE 59–76; TEMP 36.4–36.8; O2SAT 94–100
[2017-12-16] MEDS: IPRATROPIUM BROMIDE NEB SOLN 0.02% 2.5 ML VIAL INH SCH ×4 (01:40→19:26)
[2017-12-16] MEDS: LEVALBUTEROL 1.25MG/0.5ML NEB INH SCH ×4 (01:40→19:26)
[2017-12-16] MEDS: AMPICILLIN/SULBACTAM SOD INJ 3,000 MG in SODIUM CHLORIDE 0.9% 100ML 100 ML IV SCH ×4 (02:15→20:41)
[2017-12-16] MEDS: ENOXAPARIN 40 MG/0.4 ML SYR SC SCH (05:42)
[2017-12-16 06:12] LABS: BASO % 0.1 %; BASO ABS # 0.01 K/uL (0-0.2); EOS % 0.2 %; EOS ABS # 0.02 K/uL (0-0.5); HEMATOCRIT 35.5 % (42-52); HEMOGLOBIN 11.8 g/dL (14.0-18.0); IG# 0.02 K/uL (0.00-0.02); LYMPH % 11.4 %; LYMPH ABS # 1.17 K/uL (1.2-3.4); MEAN CELL VOLUME 91.5 fL (80-100); MEAN CORPUSCULAR HEMOGLOBIN 30.4 pg (25-34); MEAN CORPUSCULAR HGB CONC 33.2 g/dl (32-36); MEAN PLATELET VOLUME 10.4 fL (7.4-10.4); MONO % 8.4 %; MONO ABS # 0.86 K/uL (0.11-0.59); NEUT % 79.7 %; NEUT ABS # 8.15 K/uL (1.4-6.5); PLATELET COUNT 177 K/uL (130-400); RED CELL DISTRIBUTION WIDTH CV 13.3 % (11.5-14.5); RED CELL DISTRIBUTION WIDTH SD 44.3 fL (36.4-46.3); WHITE BLOOD COUNT 10.23 K/uL (4.8-10.8)
[2017-12-16 06:49] LABS: CALCIUM 7.9 mg/dl (8.5-10.1); CREATININE 1.28 mg/dl (0.60-1.40); POTASSIUM 4.1 mmol/L (3.5-5.1)
[2017-12-16] MEDS: MULTIVITAMIN TAB PO SCH (08:14)
[2017-12-16] MEDS: METOPROLOL TARTRATE 25 MG TAB PO SCH ×2 (08:14→20:41)
[2017-12-16] MEDS: GABAPENTIN 300 MG CAP PO SCH ×2 (08:14→20:41)
[2017-12-16] MEDS: ASPIRIN 81 MG ECTAB PO SCH (08:15)
[2017-12-16] MEDS: TAMSULOSIN HCL 0.4 MG CAP PO SCH (08:15)
[2017-12-16] MEDS: ROSUVASTATIN CALCIUM 20 MG TAB PO SCH (08:15)
[2017-12-16] MEDS: LISINOPRIL 20 MG TAB PO SCH (08:15)
[2017-12-16] MEDS: INSULIN ASPART 100 UNITS/ML 3 ML PEN SC SCH ×4 (08:19→21:00)
[2017-12-16] MEDS: INSULIN GLARGINE SOLOSTAR 100 UNITS/ML 3 ML PEN SC SCH (08:20)
[2017-12-16] MEDS ORDERED: INSULIN GLARGINE SOLOSTAR 100 UNITS/ML 3 ML PEN SC SCH (09:00)
--- NOTE | 2017-12-16 11:48 | Cardiology Follow-Up ---
Subjective General Date of Service: Dec 16, 2017. Pt evaluation today including: conversation w/ patient, physical exam, chart review, lab review, review of studies, conversation w/ business info consultant, review of inpatient medication list History of Present Illness The patient is a 77 year old male seen in follow-up. Feeling better today. Odynophagia improving. Reports cough with scant sputum production. Mild expiratory wheezing noted. Denies chest pain or palpitations. No recurrent atrial fibrillation over the last 24 hours. Offers no new complaints at this time. Allergies Coded Allergies: No Known Allergies (Verified , 11/30/17) Social History Smoking Status: Former Smoker Hx Tobacco Use In Past Year?: No Hx Alcohol Use - Type And Amou: No Hx Substance Use - Type And Am: No Problem List Medical Problems: (1) Diffuse ST segment depression Status: Acute (2) Hypertension Status: Acute (3) Sepsis Status: Acute (4) Uvulitis Status: Acute Review of Systems Respiratory: + cough, + sputum, + dyspnea on exertion, No wheezing, No shortness of breath, No dyspnea at rest, No hemoptysis Cardiac: No chest pain, No orthopnea, No PND, No edema, No claudication, No palpitations Physical Exam Vital Signs Last Vital Signs Documentation Date Time Temp Pulse Resp B/P (MAP) Pulse Ox O2 Delivery O2 Flow Rate FiO2 12/16/17 11:12 36.8 61 20 159/77 (104) 100 12/16/17 07:19 Nasal Cannula 2.0 Physical Exam Constitutional: General Apperance: heathly-appearing Level of Distress: NAD Head: normocephalic ENMT: normal ENT inspection Neck: supple Lungs: Auscultation: expiratory wheezing, rhonchi Cardiovascular: Heart Auscultation: RRR, normal S1, normal S2, no murmurs Peripheral Pulses: Radial Pulse: normal on the left, normal on the right Abdomen: Inspection & Palpation: soft, non-distended, no tenderness, guarding & rebound Extremities: no cyanosis, no edema, no clubbing, no ulcers Neurologic: Gait & Station: pertinent finding (No focal motor deficit) Cranial Nerves: grossly intact Assessment and Plan Assessment and Plan FINAL IMPRESSION: 1. Paroxysmal atrial flutter/fibrillation with spontaneous conversion to sinus rhythm. No recurrence over the past 24 hours. Dysrhythmia likely secondary to febrile illness, acute infectious process and electrolyte derangement. 2. Chronic coronary artery disease with history of prior coronary artery bypass grafting. Stable without angina. Repeat echocardiogram demonstrates preserved left ventricular systolic function without regional wall motion abnormality. 3. Diabetes type 2. 4. Pharyngitis and possible community-acquired pneumonia. 5. Right bundle-branch block. PLAN AND RECOMMENDATIONS: The natural history and pathophysiology of atrial fibrillation/flutter discussed with the patient. No recurrence over the past 24 hours of treatment of pharyngitis, community acquired pneumonia, and electrolyte derangement. Patient is improving clinically. We will continue to monitor telemetry. Continue current dose of metoprolol. Plan for outpatient 14 day ZIO monitor to assess for asymptomatic recurrence of atrial fibrillation. Findings and recommendations discussed with patient. All questions answered to his satisfaction. Laboratory Results Last 24 Hours Test 12/15/17 16:06 12/15/17 20:46 12/16/17 05:45 12/16/17 07:42 Bedside Glucose 319 mg/dl 272 mg/dl 137 mg/dl White Blood Count 10.23 K/uL Red Blood Count 3.88 M/uL Hemoglobin 11.8 g/dL Hematocrit 35.5 % Mean Corpuscular Volume 91.5 fL Mean Corpuscular Hemoglobin 30.4 pg Mean Corpuscular Hemoglobin Concent 33.2 g/dl Platelet Count 177 K/uL Mean Platelet Volume 10.4 fL Neutrophils (%) (Auto) 79.7 % Lymphocytes (%) (Auto) 11.4 % Monocytes (%) (Auto) 8.4 % Eosinophils (%) (Auto) 0.2 % Basophils (%) (Auto) 0.1 % Neutrophils # (Auto) 8.15 K/uL Lymphocytes # (Auto) 1.17 K/uL Monocytes # (Auto) 0.86 K/uL Eosinophils # (Auto) 0.02 K/uL Basophils # (Auto) 0.01 K/uL RDW Standard Deviation 44.3 fL RDW Coefficient of Variation 13.3 % Immature Granulocyte % (Auto) 0.2 % Immature Granulocyte # (Auto) 0.02 K/uL Sodium Level 139 mmol/L Potassium Level 4.1 mmol/L Chloride Level 106 mmol/L Carbon Dioxide Level 28 mmol/L Anion Gap 5.0 mmol/L Blood Urea Nitrogen 22 mg/dl Creatinine 1.28 mg/dl Est Creatinine Clear Calc Drug Dose 51.2 ml/min Estimated GFR () 61.7 Estimated GFR (Non- 53.3 BUN/Creatinine Ratio 17.0 Random Glucose 133 mg/dl Calcium Level 7.9 mg/dl Magnesium Level 2.2 mg/dl Test 12/16/17 11:22 Bedside Glucose 283 mg/dl
[2017-12-16] MEDS: HYDROCODONE/HOMATROPINE SYRUP 5MG/1.5MG 5ML UDP PO PRN ×2 (15:09→23:12)
--- NOTE | 2017-12-16 17:11 | Progress Note ---
Internal Med Progress Note Date of Service: Dec 16, 2017. Provider Documentation: SUBJECTIVE: The patient was seen and examined in telemetry unit He was admitted with them severe sore throat and also noted to have atrial fibrillation with RVR He has been feeling a lot better following intravenous antibiotic and cardiac care Feels a lot better today Minimal pain on swallowing OBJECTIVE: Vital Signs-as noted below Exam: General-no apparent distress Eyes-normal ENT-normal Neck-supple, minimal tenderness tonsillar radius on either side Lungs-clear to auscultate bilaterally Heart-regular, no murmur appreciated Abdomen-benign Extremities-negative for any edema Neuro-alert, awake and oriented 3 No focal sensory and motor deficit appreciated Lab data as noted below. ASSESSMENT & PLAN: This is a 77 year old male with a past medical history of CAD s/p CABG, post-op atrial fibrillation, HTN, HLD, insulin dependent DM2, hx. of TIA - presents with sore throat, has had recurrent throat infections Acute Pharyngitis-likely viral With Hypoxia - patient with hypoxic episode into the 60s-70s - improved with 3L of O2 - states he's had sore throat/infections in the past, uses azithromycin for it at times as needed - will start Unasyn due to possible aspiration -Throat soft negative for any beta strep -Continue current antibiotic and will change to oral Augmentin on discharge Transient Atrial Flutter/Atrial Fibrillation - appreciate cardiology input - atrial flutter/fibrillation on tele - b-shree increased - if recurrent AF; will start IV heparin with transition to oral anticoagulant -Has been in sinus rhythm -Will observe him overnight and if he remains in sinus rhythm we will go home without any anticoagulation CAD s/p CABG - no acute coronary issues - continue aspirin, statin, b-shree -No acute symptoms Insulin Dependent DM2 - received IV Decadron in the ER; causing elevated BSGs - currently on Lantus 15 units in the AM and a sliding scale - monitor and adjust as needed -Remains a stable HTN - b-shree dose increased - Lisinopril 20mg daily - patient requesting to d/c HCTZ as an outpatient medication; will monitor BP and likely adjust Lisinopril if needed DVT ppx - Lovenox FULL CODE Disposition Likely discharge tomorrow Vital Signs: Date Time Temp Pulse Resp B/P (MAP) Pulse Ox O2 Delivery O2 Flow Rate FiO2 12/16/17 16:00 Room Air 12/16/17 14:56 36.8 73 20 153/73 (99) 96 Room Air 12/16/17 13:59 66 14 96 Room Air 12/16/17 12:18 94 Room Air 12/16/17 12:00 94 Room Air 12/16/17 11:12 36.8 61 20 159/77 (104) 100 12/16/17 08:23 73 12/16/17 07:31 36.6 59 20 146/74 (98) 100 12/16/17 07:19 66 14 95 Nasal Cannula 2.0 12/16/17 03:01 36.4 72 18 115/66 (82) 97 Nasal Cannula 2.0 12/16/17 01:42 64 14 97 Nasal Cannula 2.0 12/16/17 00:20 Nasal Cannula 2.0 12/15/17 23:14 36.4 65 18 129/68 (88) 97 Nasal Cannula 2.0 12/15/17 20:28 37.1 89 20 111/67 (82) 94 2.0 12/15/17 19:13 36.9 95 Nasal Cannula 2.0 12/15/17 18:46 90 20 94 Nasal Cannula 2.5 Lab Results: Results Past 24 Hours Test 12/15/17 20:46 12/16/17 05:45 12/16/17 07:42 12/16/17 11:22 Range/Units Bedside Glucose 272 137 283 70-99 mg/dl White Blood Count 10.23 4.8-10.8 K/uL Red Blood Count 3.88 4.7-6.1 M/uL Hemoglobin 11.8 14.0-18.0 g/dL Hematocrit 35.5 42-52 % Mean Corpuscular Volume 91.5 80-100 fL Mean Corpuscular Hemoglobin 30.4 25-34 pg Mean Corpuscular Hemoglobin Concent 33.2 32-36 g/dl Platelet Count 177 130-400 K/uL Mean Platelet Volume 10.4 7.4-10.4 fL Neutrophils (%) (Auto) 79.7 % Lymphocytes (%) (Auto) 11.4 % Monocytes (%) (Auto) 8.4 % Eosinophils (%) (Auto) 0.2 % Basophils (%) (Auto) 0.1 % Neutrophils # (Auto) 8.15 1.4-6.5 K/uL Lymphocytes # (Auto) 1.17 1.2-3.4 K/uL Monocytes # (Auto) 0.86 0.11-0.59 K/uL Eosinophils # (Auto) 0.02 0-0.5 K/uL Basophils # (Auto) 0.01 0-0.2 K/uL RDW Standard Deviation 44.3 36.4-46.3 fL RDW Coefficient of Variation 13.3 11.5-14.5 % Immature Granulocyte % (Auto) 0.2 % Immature Granulocyte # (Auto) 0.02 0.00-0.02 K/uL Sodium Level 139 136-145 mmol/L Potassium Level 4.1 3.5-5.1 mmol/L Chloride Level 106 98-107 mmol/L Carbon Dioxide Level 28 21-32 mmol/L Anion Gap 5.0 3-11 mmol/L Blood Urea Nitrogen 22 7-18 mg/dl Creatinine 1.28 0.60-1.40 mg/dl Est Creatinine Clear Calc Drug Dose 51.2 ml/min Estimated GFR () 61.7 Estimated GFR (Non- 53.3 BUN/Creatinine Ratio 17.0 10-20 Random Glucose 133 70-99 mg/dl Calcium Level 7.9 8.5-10.1 mg/dl Magnesium Level 2.2 1.8-2.4 mg/dl Test 12/16/17 16:19 Range/Units Bedside Glucose 270 70-99 mg/dl
[2017-12-16] MEDS ORDERED: COUGH DROP (SUGAR FREE) LOZ 24 LOZ/1 BOX LOZ ONE (19:25)
[2017-12-16] MEDS ORDERED: NURSING DECISION MEDICATION ORDER SCH (19:30)
[2017-12-16] MEDS ORDERED: COUGH DROP (SUGAR FREE) LOZ 24 LOZ/1 BOX LOZ PRN (20:00)
[2017-12-17] VITALS (7 sets, daily range): BP systolic 139–153; BP diastolic 54–75; PULSE 59–90; TEMP 36.5–37.1; O2SAT 94–98
[2017-12-17] MEDS: AMPICILLIN/SULBACTAM SOD INJ 3,000 MG in SODIUM CHLORIDE 0.9% 100ML 100 ML IV SCH ×2 (02:21→07:44)
[2017-12-17] MEDS: LEVALBUTEROL 1.25MG/0.5ML NEB INH SCH ×2 (02:31→07:07)
[2017-12-17] MEDS: IPRATROPIUM BROMIDE NEB SOLN 0.02% 2.5 ML VIAL INH SCH ×2 (02:31→07:08)
[2017-12-17] MEDS: ENOXAPARIN 40 MG/0.4 ML SYR SC SCH (06:01)
[2017-12-17 06:25] LABS: CALCIUM 8.6 mg/dl (8.5-10.1); CREATININE 1.09 mg/dl (0.60-1.40); PHOSPHORUS 3.5 mg/dl (2.5-4.9); POTASSIUM 3.8 mmol/L (3.5-5.1)
[2017-12-17] MEDS: INSULIN ASPART 100 UNITS/ML 3 ML PEN SC SCH ×2 (06:30→11:00)
[2017-12-17] MEDS: METOPROLOL TARTRATE 25 MG TAB PO SCH (07:44)
[2017-12-17] MEDS: GABAPENTIN 300 MG CAP PO SCH (07:44)
[2017-12-17] MEDS: ROSUVASTATIN CALCIUM 20 MG TAB PO SCH (07:44)
[2017-12-17] MEDS: ASPIRIN 81 MG ECTAB PO SCH (07:44)
[2017-12-17] MEDS: MULTIVITAMIN TAB PO SCH (07:44)
[2017-12-17] MEDS: LISINOPRIL 20 MG TAB PO SCH (07:44)
[2017-12-17] MEDS: TAMSULOSIN HCL 0.4 MG CAP PO SCH (07:45)
[2017-12-17] MEDS: INSULIN GLARGINE SOLOSTAR 100 UNITS/ML 3 ML PEN SC SCH (07:59)
--- NOTE | 2017-12-17 12:03 | Clinical Documentation Query ---
CLINICAL DOCUMENTATION QUERY 77 year old male who presents to the Emergency Room with complaints of soar throat and SOB. Most recent progress note states patient is on Unasyn for possible aspiration. In your clinical opinion is this patient being managed for: ( + ) Possible aspiration pneumonia ( ) Not Agree ( ) Other explanation of clinical findings (No explanation is considered a No Response) ( ) Unable to determine ( ) Need to Discuss (Phone CDS or qliq) (No discussion is considered a No Response) The medical record reflects the following clinical findings, treatment, and risk factors. Clinical Indicators: hypoxia, fever, tachycardia, CXR with a patchy airspace opacities at the right lung base. This could represent atelectasis versus developing pneumonia Treatment: IV Unasyn Risk Factors: Age, pharyngitis, cough Please clarify and document your clinical opinion in the progress notes and discharge summary. Terms such as "probable", "suspected", "likely", "questionable", "possible", or "still to be ruled out" are acceptable. IF IN AGREEMENT, YOU MUST DOCUMENT ABOVE DIAGNOSTIC STATEMENT IN DAILY PROGRESS NOTES AND DISCHARGE SUMMARY. This document is not part of the patient's record. Thank You, Jake Padilla RN [phone] & via qlicCONNECT
--- NOTE | 2017-12-17 12:20 | Progress Note ---
Internal Med Progress Note Date of Service: Dec 17, 2017. Provider Documentation: SUBJECTIVE: The patient was seen and examined in telemetry unit He was admitted with them severe sore throat and also noted to have atrial fibrillation with RVR He has been feeling a lot better following intravenous antibiotic and cardiac care Feels a lot better today Minimal pain on swallowing 12/17: Denies any symptoms Sore throat is much better and eating normally No more atrial fibrillation OBJECTIVE: Vital Signs-as noted below Exam: General-no apparent distress Eyes-normal ENT-normal Neck-supple, minimal tenderness tonsillar radius on either side Lungs-clear to auscultate bilaterally Heart-regular, no murmur appreciated Abdomen-benign Extremities-negative for any edema Neuro-alert, awake and oriented 3 No focal sensory and motor deficit appreciated Lab data as noted below. ASSESSMENT & PLAN: This is a 77 year old male with a past medical history of CAD s/p CABG, post-op atrial fibrillation, HTN, HLD, insulin dependent DM2, hx. of TIA - presents with sore throat, has had recurrent throat infections Acute Pharyngitis-likely viral Presented with Hypoxia Possible aspiration pneumonia as per CXR likely from ongoing sore throat and difficulty in swallowing - patient with hypoxic episode into the 60s-70s - improved with 3L of O2 - states he's had sore throat/infections in the past, uses azithromycin for it at times as needed - will start Unasyn due to possible aspiration -Throat soft negative for any beta strep -Continue current antibiotic and will change to oral Augmentin on discharge -Clinically a lot better will continue Augmentin for 3 more days Transient Atrial Flutter/Atrial Fibrillation - appreciate cardiology input - atrial flutter/fibrillation on tele - b-shree increased - if recurrent AF; will start IV heparin with transition to oral anticoagulant -Has been in sinus rhythm -Will observe him overnight and if he remains in sinus rhythm we will go home without any anticoagulation -No more recurrence of A. fib -We will have CardioNet monitor as an outpatient and continue beta-shree CAD s/p CABG - no acute coronary issues - continue aspirin, statin, b-shree -No acute symptoms Insulin Dependent DM2 - received IV Decadron in the ER; causing elevated BSGs - currently on Lantus 15 units in the AM and a sliding scale - monitor and adjust as needed -Remains a stable HTN - b-shree dose increased - Lisinopril 20mg daily - patient requesting to d/c HCTZ as an outpatient medication; will monitor BP and likely adjust Lisinopril if needed DVT ppx - Lovenox FULL CODE Disposition Discharged today Vital Signs: Date Time Temp Pulse Resp B/P (MAP) Pulse Ox O2 Delivery O2 Flow Rate FiO2 12/17/17 11:31 37.1 60 18 139/54 (82) 96 12/17/17 08:00 Room Air 12/17/17 07:24 36.5 64 18 146/75 (98) 98 12/17/17 07:08 67 16 98 Room Air 12/17/17 04:00 36.9 74 20 149/66 (93) 94 Room Air 12/17/17 02:31 90 16 96 Room Air 12/17/17 00:19 36.9 59 20 153/73 (99) 94 Room Air 12/16/17 23:15 Room Air 12/16/17 20:36 36.4 72 18 115/66 (82) 97 Room Air 12/16/17 19:26 76 16 96 Room Air 12/16/17 16:00 Room Air 12/16/17 14:56 36.8 73 20 153/73 (99) 96 Room Air 12/16/17 13:59 66 14 96 Room Air Lab Results: Results Past 24 Hours Test 12/16/17 16:19 12/16/17 20:59 12/17/17 05:31 12/17/17 07:38 Range/Units Bedside Glucose 270 165 90 70-99 mg/dl Sodium Level 143 136-145 mmol/L Potassium Level 3.8 3.5-5.1 mmol/L Chloride Level 106 98-107 mmol/L Carbon Dioxide Level 30 21-32 mmol/L Anion Gap 6.0 3-11 mmol/L Blood Urea Nitrogen 18 7-18 mg/dl Creatinine 1.09 0.60-1.40 mg/dl Est Creatinine Clear Calc Drug Dose 60.4 ml/min Estimated GFR () 75.0 Estimated GFR (Non- 64.7 BUN/Creatinine Ratio 16.6 10-20 Random Glucose 88 70-99 mg/dl Calcium Level 8.6 8.5-10.1 mg/dl Phosphorus Level 3.5 2.5-4.9 mg/dl Magnesium Level 2.1 1.8-2.4 mg/dl Test 12/17/17 11:42 Range/Units Bedside Glucose 113 70-99 mg/dl
[2017-12-17] MEDS ORDERED: AMOX875T PO (12:24)
[2017-12-17] MEDS ORDERED: LPR25 PO (12:24)
--- NOTE | 2017-12-17 12:28 | Discharge Instructions ---
Discharge Instructions Date of Service Dec 17, 2017. Admission Reason for Admission: Tachycardia Discharge Discharge Diagnosis / Problem: PAF-Reverted to SR,Acute Pharyngitis/Bronchitis Discharge Goals Goal(s): Prevent Disease Progression Activity Recommendations Activity Limitations: resume your previous activity . Instructions / Follow-Up Instructions / Follow-Up Dr Arciniega (Abdias is not available) on 12/20/17 at 1:05 PM.Please keep appointment with your Cardiology Current Hospital Diet Patient's current hospital diet: AHA Diet (Heart Healthy), Diabetes Type 2 Diet Discharge Diet Recommended Diet: AHA Diet (Heart Healthy), Diabetes Type 2 Diet Pending Studies Studies pending at discharge: no Medical Emergencies . Who to Call and When: Medical Emergencies: If at any time you feel your situation is an emergency, please call 911 immediately. . Non-Emergent Contact Non-Emergency issues call your: Primary Care Provider . Past History Medical & Surgical History: (1) Acute pharyngitis (2) Paroxysmal atrial fibrillation with rapid ventricular response (3) Uvulitis (4) Diabetes mellitus type 2 . "Provider Documentation" section prepared by Seamus Pisano. .
[2017-12-17] MEDS ORDERED: AMOXICILLIN/CLAVULANATE TAB 875 MG TAB PO ONE (12:30)
--- NOTE | 2017-12-19 09:53 | Discharge Summary ---
Discharge Summary Date of Service Dec 19, 2017. Discharge Summary Admission Date: Dec 16, 2017 at 12:08 Discharge Date: Dec 17, 2017 Principal Diagnosis: PAF-Reverted to SR,Acute Pharyngitis/Bronchitis Secondary Diagnoses/Problems: Please see H&P and Hospital progress note Consultations: Cardiology Medication Reconciliation New Medications: Amoxicillin & Pot Clavulanate (Augmentin 875-125 mg) 1 Tab Tab 875 MG PO BID, #6 TAB Metoprolol Tartrate (Lopressor) 25 Mg Tab 25 MG PO BID for 30 Days, #60 TAB Continued Medications: Aspirin (Aspirin Ec) 81 Mg Tab 81 MG PO DAILY Cholecalciferol (Vitamin D3) 1,000 Unit Tab 1000 UNITS PO DAILY, TAB 3 Refills Gabapentin (Neurontin) 300 Mg Cap 300 MG PO BID Hydrochlorothiazide (Hydrochlorothiazide) 12.5 Mg Tab 12.5 MG PO DAILY, TAB Insulin Glargine (Lantus) 100 Unit/Ml Inj 20 UNITS SC QAM Insulin Regular (Human) (Novolin R U-100) 100 Unit/Ml Inj SQ UD SLINDING SCALE: CORRECTION FACTOR OF 30 WITH GOAL 110-130 1 UNIT 130-160 1 UNIT 161-190 2 UNIT ETC.. Lisinopril (Zestril) 20 Mg Tab 20 MG PO DAILY, TAB Metformin Hcl (Glucophage) 1,000 Mg Tab 1000 MG PO BID Multiple Vitamin (Multivitamin) 1 Tab Tab 1 TAB PO DAILY, TAB Nitroglycerin (Nitroglycerin) 0.4 Mg/Hr Dis 0.4 MG SL PRN 1 TAB EVERY 5 MIN NEEDED UP TO 3 TABS Rosuvastatin Calcium (Crestor) 20 Mg Tab 20 MG PO DAILY, TAB Tamsulosin Hcl (Flomax) 0.4 Mg Cap 0.4 MG PO DAILY Discontinued Medications: Metoprolol Tartrate (Lopressor) (Lopressor) 25 Mg Tab 12.5 MG PO BID 1/2 OF A 25 MG TABLET TWICE DAILY Admission Information HPI (per Admitting provider): DATE OF ADMISSION: 12/15/2017 PATIENT'S PRIMARY CARE DOCTOR: Dr. Calero. CHIEF COMPLAINT: Sore throat. HISTORY OF PRESENT ILLNESS: History was obtained from patient and records. Medical history is significant for CAD status post CABG, hx postof AF, chronic systolic/diastolic heart failure (EF 40-50% as outpatient cardiology notes 2012), hypertension, hyperlipidemia, DM2 insulin requiring, TIA as per records, chronic back pain. Recent confinement last December 2012 for syncope, upper respiratory tract infection. Four days history of sore throat, more on the left, odynophagia -possibly from some trauma from swallowing some chips. Patient' s sore throat going to the left ear. Has happened in the past. Some chills, [place] to [place]. No chest pain, no shortness of breath, no abdominal pain. No diarrhea, no dysuria. Cough productive of clear sputum. Fair appetite. Patient seen in the ER. Received IV fluids, Vancomycin and Zosyn for possible sepsis. IV Decadron also given at the ER. MEDICAL HISTORY: As above. SURGERIES: He has had CABG, back surgery, appendectomy. HOME MEDICATIONS: Include lisinopril HCTZ, Neurontin, metformin, Lopressor, tamsulosin, sildenafil, Nitrostat, Lantus, potassium chloride, rosuvastatin, Advil, Viagra. ALLERGIES: No known drug allergies. FAMILY HISTORY: History of heart disease. PERSONAL AND SOCIAL HISTORY: Past tobacco abuse. No EtOH intake. REVIEW OF SYSTEMS: As per HPI, all 10 systems reviewed, all other ROS negative. PHYSICAL EXAMINATION: VITAL SIGNS: Blood pressure was noted to be 109/79, pulse rate 126, RR 24, temperature 36.7, sats 97% on room air. GENERAL: Noted to be anxious, obese, slightly uncomfortable, no respiratory distress, no stridor, intermittent junky coughing spells SKIN: Normal color, warm. HEENT: Partial alopecia. Day palpebral conjunctivae. No ptosis. abrasion on the left EAC, intact TM. Mild pharyngeal congestion. No trismus. NECK: Short, supple. CHEST: Decreased breath sounds, expiratory wheezes which clear on coughing. ABDOMEN: Distention, nontender. EXTREMITIES: No edema. No tenderness, no other gross deformities. NEUROLOGIC: Coherent, no gross focality. LABORATORY DATA: Hemoglobin is 14.2, hematocrit 41.8, white blood cell count 10.45, platelets 176. Sodium noted to be 140, potassium 4, chloride 102, CO2 28, glucose 145. Procalcitonin was normal. Point of care lactic acid initially 4 later 1.5. Hemoglobin A1c from September 2017 was 8.2. Chest x-ray as per my interpretation, atelectasis, cardiomegaly. UA showed ketones. Lactic acid initially 4. EKG as per my interpretation, rate 125, junctional rhythm, RBBB ASSESSMENT AND PLAN: 1. Tachycardia secondary to viral illness Pharyngitis/bronchitis. 2. Chronic systolic/diastolic heart failure. EF 40-50% from 2013 outpatient Cardiology notes Patient on the dry side. 3. Coronary artery disease status post coronary artery bypass graft. 4. History post CABG AF as per records 5. HTN, stable 6. DM2 on oral meds, suboptimal control as of recent outpatient hemoglobin A1c 7. hx TIA as per records Observation PCU IV fluids, hold home diuretics until patient euvolemic. Supportive measures for viral illness for now CS, hold off on additional antibiotics until definite bacterial focus found. CT neck soft tissue RE sore throat, odynophagia basal insulin, ISS BG goal 140-180. DVT prophylaxis with Lovenox subQ. Full code. Addendum : Upon arrival at the floor around 6 AM, I was made aware by RN of transient burst rapid atrial flutter on the monitor. Increase beta-shree dose dose to 25 mg p.o. twice daily for now TTE, Cardiology consult RE paroxysmal atrial flutter Dictated: 12/15/17 0546 Transcribed: 12/15/17 0851 <Electronically signed by Jose R Galeas M.D.> Signed: 12/15/17 1646 ES Jose R Galeas M.D. Hospital Course This is a 77 year old male with a past medical history of CAD s/p CABG, post-op atrial fibrillation, HTN, HLD, insulin dependent DM2, hx. of TIA - presents with sore throat, has had recurrent throat infections Acute Pharyngitis-likely viral Presented with Hypoxia Possible aspiration pneumonia as per CXR likely from ongoing sore throat and difficulty in swallowing - patient with hypoxic episode into the 60s-70s - improved with 3L of O2 - states he's had sore throat/infections in the past, uses azithromycin for it at times as needed - will start Unasyn due to possible aspiration -Throat soft negative for any beta strep -Continue current antibiotic and will change to oral Augmentin on discharge -Clinically a lot better will continue Augmentin for 3 more days Transient Atrial Flutter/Atrial Fibrillation - appreciate cardiology input - atrial flutter/fibrillation on tele - b-shree increased - if recurrent AF; will start IV heparin with transition to oral anticoagulant -Has been in sinus rhythm -Will observe him overnight and if he remains in sinus rhythm we will go home without any anticoagulation -No more recurrence of A. fib -We will have Card[employer]Net monitor as an outpatient and continue beta-shree CAD s/p CABG - no acute coronary issues - continue aspirin, statin, b-shree -No acute symptoms Insulin Dependent DM2 - received IV Decadron in the ER; causing elevated BSGs - currently on Lantus 15 units in the AM and a sliding scale - monitor and adjust as needed -Remains a stable HTN - b-shree dose increased - Lisinopril 20mg daily - patient requesting to d/c HCTZ as an outpatient medication; will monitor BP and likely adjust Lisinopril if needed DVT ppx - Lovenox FULL CODE Disposition Discharged today Total time spent on discharge = 35 minutes This includes examination of the patient, discharge planning, medication reconciliation, and communication with other providers. Discharge Instructions Date of Service Dec 17, 2017. Admission Reason for Admission: Tachycardia Discharge Discharge Diagnosis / Problem: PAF-Reverted to SR,Acute Pharyngitis/Bronchitis Discharge Goals Goal(s): Prevent Disease Progression Activity Recommendations Activity Limitations: resume your previous activity . Instructions / Follow-Up Instructions / Follow-Up Dr Arciniega (Abdias is not available) on 12/20/17 at 1:05 PM.Please keep appointment with your Cardiology Current Hospital Diet Patient's current hospital diet: AHA Diet (Heart Healthy), Diabetes Type 2 Diet Discharge Diet Recommended Diet: AHA Diet (Heart Healthy), Diabetes Type 2 Diet Pending Studies Studies pending at discharge: no Medical Emergencies . Who to Call and When: Medical Emergencies: If at any time you feel your situation is an emergency, please call 911 immediately. . Non-Emergent Contact Non-Emergency issues call your: Primary Care Provider . Past History Medical & Surgical History: (1) Acute pharyngitis (2) Paroxysmal atrial fibrillation with rapid ventricular response (3) Uvulitis (4) Diabetes mellitus type 2 . "Provider Documentation" section prepared by Seamus Pisano. . <Electronically signed by Seamus Pisano M.D.> Signed: 12/17/17 0327 Signed: Additional Copies To Favian Calero M.D.
== END 2017-12-17 13:27 | disposition home or self-care (01) | DRG 178 ==
LOC: C.EDB 01:34 → C.MED 03:55 → ENRESERV 04:19 → OBSVTOIN 12-16 12:08
PROVIDERS: ADMIT Internal Medicine; ATTEND Internal Medicine
DX: J69.0 Pneumonitis due to inhalation of food and vomit (principal); I48.0 Paroxysmal atrial fibrillation; I48.92 Unspecified atrial flutter; J02.9 Acute pharyngitis, unspecified; K12.2 Cellulitis and abscess of mouth; J20.8 Acute bronchitis due to other specified organisms; E11.40 Type 2 diabetes mellitus with diabetic neuropathy, unspecified; Z86.73 Personal history of transient ischemic attack (TIA), and cerebral infarction without residual deficits; Z79.4 Long term (current) use of insulin; Z79.84 Long term (current) use of oral hypoglycemic drugs; I10 Essential (primary) hypertension; I25.10 Atherosclerotic heart disease of native coronary artery without angina pectoris; Z95.1 Presence of aortocoronary bypass graft; R00.0 Tachycardia, unspecified; I50.42 Chronic combined systolic (congestive) and diastolic (congestive) heart failure; I45.10 Unspecified right bundle-branch block; R09.02 Hypoxemia

== ENCOUNTER 2018-09-22 12:04 | Inpatient (IN) ==
--- OUTSIDE RECORDS SUMMARY | 2018-09-22 12:08 | External Medical Summary | Continuity of Care Document ---
:1940 Author Name Wendie Qiu Address Unavailable Unavailable , Care Team Providers Name Role Phone Jean-Pierre Qiu Unavailable [email or web address] [email or web address] Unavailable Unavailable Unavailable Unavailable Unavailable Problems Difficulty breathing (786.09) (R06.89) Allergies and Adverse Reactions No Known Drug Allergies (Allergy) Medications Medications not documented Procedures Procedures not documented Immunizations Immunizations not documented Plan of Treatment Planned Observations Planned Goals not documented Results No Known Results Results not documented
[2018-09-22] MEDS ORDERED: METOPROLOL TARTRATE 1 MG/ML VIAL IV STA (12:20)
[2018-09-22] MEDS ORDERED: OXYMETAZOLINE 0.05% 30 ML BTL NAE ONE (12:26)
--- NOTE | 2018-09-22 12:35 | XRay Report ---
XR chest 1V portable CLINICAL HISTORY: weakness COMPARISON STUDY: 12/15/2017 FINDINGS: The heart is enlarged. There are postsurgical changes of a midline sternotomy. There is melchor vation interstitium consistent with mild pulmonary vascular congestion. There is no lobar consolidati on. There are no significant pleural effusions.[ IMPRESSION: Cardiomegaly and suspected mild pulmonary vascular congestion. No evidence of lobar conso lidation. Electronically signed by: James Grissom M.D. 09/22/2018 12:34 PM
[2018-09-22 12:56] LABS: Hematocrit (blood only) 39.3 % (42-52); Hemoglobin 13.9 g/dL (14.0-18.0); Mean Corpuscular Hgb Conc 35.4 g/dL (32-36); Mean Corpuscular Volume 89.9 fL (80-100); Mean Platelet Volume 10.4 fL (7.4-10.4); Platelet Count 187 K/uL (130-400); RDW Standard Deviation 42.6 fL (36.4-46.3); Red Blood Count 4.37 M/uL (4.7-6.1); White Blood Count 16.22 K/uL (4.8-10.8)
[2018-09-22 13:08] LABS: INR 1.1 (0.9-1.1); Prothrombin Time 10.8 Seconds (9.0-12.0)
[2018-09-22 13:14] LABS: Albumin Level 3.1 gm/dl (3.4-5.0); BUN Creatinine Ratio 15.8 (10-20); Calcium 8.7 mg/dl (8.5-10.1); Creatinine Clr Calc Pharmacy 52.1 ml/min; Est GFR (African American) 62.9; Est GFR (Non-African American) 54.3; Magnesium 1.6 mg/dl (1.8-2.4); Potassium 4.1 mmol/L (3.5-5.1)
[2018-09-22] MEDS ORDERED: MAGNESIUM SULFATE / D5W 1 GM/100 ML BAG IV ONE (13:20)
[2018-09-22 13:28] LABS: Albumin Globulin Ratio 0.9 (0.9-2); Bilirubin,Total 0.8 mg/dl (0.2-1); Globulin 3.6 gm/dl (2.5-4.0); Total Protein 6.7 gm/dl (6.4-8.2); Troponin I 0.088 ng/ml (0-0.045)
[2018-09-22 13:32] LABS: Basophils # (auto) 0.02 K/uL (0-0.2); Basophils % (auto) 0.1 %; Eosinophils # (auto) 0.04 K/uL (0-0.5); Eosinophils % (auto) 0.2 %; Immature Granulocytes # (auto) 0.03 K/uL (0.00-0.02); Immature Granulocytes % (auto) 0.2 %; Lymphocytes # (auto) 1.42 K/uL (1.2-3.4); Lymphocytes % (auto) 8.8 %; Monocytes # (auto) 1.08 K/uL (0.11-0.59); Monocytes % (auto) 6.7 %; Neutrophils # (auto) 13.63 K/uL (1.4-6.5)
[2018-09-22] MEDS ORDERED: AMPICILLIN/SULBACTAM SOD 3,000 MG in 0.9 % SODIUM CHLORIDE 100 ML IV STA (14:21)
--- NOTE | 2018-09-22 14:46 | History & Physical Report ---
Date of Service September 22, 2018 Assessment & Plan (1) Bronchitis: Acute Bronchitis: Dysphagia: Possible Sepsis Meets SIRS criteria CXR: Cardiomegaly and suspected mild pulmonary vascular congestion. No evidence of lobar consolidation. Neck CT:No acute abnormalities are visualized Check Lactate levels, Influenza Screen Obtain Blood cultures Empirically start on IV Unasyn Speech & Swallow eval Clear liquid diet--advance as tolerated Gentle IV fluids Aspiration Precautions NPO after midnight for possible swallow studies if needed Consider GI eval if necessary Hypomagnesemia: Replace and monitor electrolytes as needed Mild Troponin elevation: Likely demand Ischemia due tachycardia/infection H/O CAD S/P CABG Trend cardiac enzymes patient denies check pain Obtain EKG Check ECHO for wall motion abnormality Continue Aspirin, Statin, Metoprolol, Lisinopril Paroxysmal Atrial Fibrillation: TSH:Normal Previously on Coumadin -Patient wasn't sure why it was discontinued Currently prefers not to be started on anticoagulation for afib continue aspirin Continue Metoprolol 25 mg BID Lopressor PRN DM II: Will hold oral diabetic meds Last A1c:8.3 per patient checked 1 week ago at [place] Continue ISS, basal Insulin Decrease the dose of Lantus given poor oral intake Adjust Insulin therapy as needed Monitor BGs Diabetic Neuropathy Continue gabapentin H/O TIA: Continue aspirin, statin DVT Px: Lovenox SQ Code Status: Full Code Disposition: Expect to discharge home when stable History of Present Illness Chief Complaint: Sore throat/Dysphagia Primary Care Provider: Favian Calero MD Patient is a 77-year-old male with history of DM II, CAD S/P CABG, Spinal stenosis, P.Afib, TIA, BPH and other problems presents with history of worsening sore throat associated with cough with clear expectoration, since 4 days duration. Also reports having fever with chills today. He states having pain w hile swallowing secondary to sore throat. He has not been drinking/eating well due to pain since last 2 days. He was evaluated at [facility] clinic yesterday and strep throat was negative. Feels tired. He reports having similar symptoms due to recurrent throat infections in the past. She states that he recently completed prednisone taper course for back pain and developed having difficulty swallowing since completion of prednisone course. He was noted to be in Afib RVR while in ED and currently not on anticoagulation. Patient was previously on coumadin and was not sure why it was discontinued. Denies any bleeding issues. Currently he prefers NOT to be started on anticoagulation for atrial fibrillation. Follows with [facility]. Denies any history of chest pain, SOB, palpitations, dizziness, pedal edema, hemoptysis, nausea, vomiting, abdominal pain, diarrhea, dysuria, sick contact, recent change in medications. Allergies Allergy/AdvReac Type Severity Reaction Status Date / Time No Known Allergies Allergy Verified 09/22/18 13:48 Home Medications Home Medications Medication Instructions Recorded Confirmed Type acetaminophen [Tylenol Extra 500 mg PO Q6H PRN 09/22/18 09/22/18 History Strength] aspirin 81 mg PO QAM 09/22/18 09/22/18 History gabapentin 300 mg PO BID 09/22/18 09/22/18 History insulin glargine [Lantus U-100 20 unit SUBCUT QAM 09/22/18 09/22/18 History Insulin] insulin regular human [Novolin R 1 sliding scale dose SUBCUT 09/22/18 09/22/18 History Regular U-100 Insuln] USEASDIRECTD lisinopril 20 mg PO QAM 09/22/18 09/22/18 History metformin 1,000 mg PO BIDM 09/22/18 09/22/18 History metoprolol tartrate 25 mg PO BID 09/22/18 09/22/18 History multivitamin 1 tab PO QAM 09/22/18 09/22/18 History rosuvastatin [Crestor] 20 mg PO QAM 09/22/18 09/22/18 History tamsulosin 0.4 mg PO QAM 09/22/18 09/22/18 History vitamin E 0 unit PO QAM 09/22/18 09/22/18 History Past Med/Surg History Medical History Atrial fibrillation Hypertension (Acute) Surgical History S/P CABG (coronary artery bypass graft) (Resolved) Social History Preferred Language: Estonian Communication Ability: Effective 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 Required: No Beliefs That Will Affect Care: None marital status: Current Living Situation: Alone current occupational status: retired Other Information That Helps Us Care for You: No Feels Safe at Home: Yes Safety Concerns: Feels Safe At This Time Smoking Status: Former smoker Do You Dip or Chew Tobacco: No Second Hand Exposure: No Tobacco Cessation Education Requested by Patient: No Hx Alcohol Use: No Hx Substance Use: No Review of Systems Review of Systems: All systems reviewed & are unremarkable except as noted in HPI & below Physical Exam Physical Exam: Physical Exam: Vitals signs as noted above General Appearance:Moderately built and nourished, no apparent distress Head: normocephalic, Atraumatic Eyes: normal inspection, EOMI Neck: supple, Trachea midline Respiratory/Chest: Normal breath sounds, +basal crackles Cardiovascular: Irregularly Irregular, No murmur Abdomen/GI:Soft, Non tender, Bowel sounds present Extremities/Musculoskelatal:normal inspection, no edema Neurologic/Psych:AAOX3, grossly no focal neurological deficits Skin: normal color, warm Results & Data Vital Signs (Past 12 Hours) Vital Signs Temp Pulse Pulse Resp BP BP Pulse Ox 09/22/18 13:50 96 H 24 131/80 93 09/22/18 13:22 102 H 24 161/93 H 93 09/22/18 13:06 102 H 165/88 H 09/22/18 13:05 106 H 24 165/88 H 93 09/22/18 12:52 82 24 160/97 H 94 09/22/18 12:45 94 09/22/18 12:09 36.7 C 109 H 19 105/69 94 Laboratory Results Short CBC 09/22/18 Range/Units 12:41 WBC 16.22 H (4.8-10.8) K/uL Hgb 13.9 L (14.0-18.0) g/dL Hct 39.3 L (42-52) % Plt Count 187 (130-400) K/uL BMP 09/22/18 12:41 Sodium 135 L Potassium 4.1 Chloride 101 Carbon Dioxide 26 BUN 20 H Creatinine 1.26 Glucose 132 H Calcium 8.7 Cardiac Enzymes 09/22/18 Range/Units 12:41 Troponin I 0.088 H* (0-0.045) ng/ml Liver Function 09/22/18 Range/Units 12:41 Total Bilirubin 0.8 (0.2-1) mg/dl AST 24 (15-37) U/L ALT 21 (12-78) U/L Alkaline Phosphatase 61 (45-117) U/L Albumin 3.1 L (3.4-5.0) gm/dl Diagnostic Findings CXR: Cardiomegaly and suspected mild pulmonary vascular congestion. No evidence of lobar consolidation. Neck CT: No acute abnormalities are visualized
--- NOTE | 2018-09-22 15:43 | Emergency Department Note ---
Entered by Virginia Adams acting as a scribe for History of Present Illness General Chief complaint: Illness Stated complaint: SORE THROAT,FEVER,SHAKES,COUGH CONGESTION Source: patient Mode of arrival: ambulatory Limitations: no limitations History of Present Illness Provider complaint: Sore throat Onset (ago): day(s) 3 Location: mouth (throat) Radiation: non-radiation Severity: similar to prior episodes Pain Consistency: + other (worsening) Maximum Pain Intensity: 10 Quality: + other (soreness) Associated symptoms: + cough (productive), + weakness and + other (Additional symptoms: nasal congestion, difficulty swallowing, shakiness) The patient is a 77 year old male with a history of hypertension, atrial fibrillation, and a CABG who presents to the Emergency Room with complaints of a worsening sore throat starting 3 days ago. The patient reports that his sore throat has been accompanied by nasal congestion, a productive cough, and difficulty swallowing. He states that he also has not had anything to eat or drink over the past 2 days, which has caused him to become weak and shaky. He notes that he has come to the hospital for similar illness in the past. Per daughter, the patient went to the [facility] clinic yesterday and was tested negative for strep. She adds that the patient took 2 doses of Benadryl for his symptoms around 0100 today. The patient reports that his PCP is Dr. Calero and his Dr. Clayton is his dining car steward. He states that he takes baby aspirin on a daily basis. Home Medications Home Medications Medication Instructions Recorded Confirmed Type acetaminophen [Tylenol Extra 500 mg PO Q6H PRN 09/22/18 09/22/18 History Strength] aspirin 81 mg PO QAM 09/22/18 09/22/18 History gabapentin 300 mg PO BID 09/22/18 09/22/18 History insulin glargine [Lantus U-100 20 unit SUBCUT QAM 09/22/18 09/22/18 History Insulin] insulin regular human [Novolin R 1 sliding scale dose SUBCUT 09/22/18 09/22/18 History Regular U-100 Insuln] USEASDIRECTD lisinopril 20 mg PO QAM 09/22/18 09/22/18 History metformin 1,000 mg PO BIDM 09/22/18 09/22/18 History metoprolol tartrate 25 mg PO BID 09/22/18 09/22/18 History multivitamin 1 tab PO QAM 09/22/18 09/22/18 History rosuvastatin [Crestor] 20 mg PO QAM 09/22/18 09/22/18 History tamsulosin 0.4 mg PO QAM 09/22/18 09/22/18 History vitamin E 0 unit PO QAM 09/22/18 09/22/18 History Allergies Allergy/AdvReac Type Severity Reaction Status Date / Time No Known Allergies Allergy Verified 09/22/18 13:48 Past Med/Surg History Medical History Atrial fibrillation Hypertension (Acute) Surgical History S/P CABG (coronary artery bypass graft) (Resolved) Social History Preferred Language: Hebrew Communication Ability: Effective Cook Manager Required: No Beliefs That Will Affect Care: None marital status: Current Living Situation: Alone current occupational status: retired Other Information That Helps Us Care for You: No Feels Safe at Home: Yes Safety Concerns: Feels Safe At This Time Smoking Status: Former smoker Do You Dip or Chew Tobacco: No Second Hand Exposure: No Tobacco Cessation Education Requested by Patient: No Hx Alcohol Use: No Hx Substance Use: No Review of Systems See HPI for pertinent positives & negatives. and A total of 10 systems reviewed and were otherwise negative Physical Exam Vital Signs Vital Signs - 24 hr 09/23/18 07:00 09/23/18 07:13 09/23/18 08:00 Temperature 36.3 C L Temperature Source Oral Pulse Rate 68 Pulse Rate [Right Finger] 73 Respiratory Rate 18 Respiratory Effort / Characteristics Non-Labored Spontaneous Respiratory Depth Normal Respiratory Pattern Blood Pressure [Left Arm] 168/72 H Blood Pressure Mean [Left Arm] 104 Blood Pressure Position [Left Arm] Lying Pulse Oximetry 98 Oxygen Delivery Method Nasal Cannula Room Air Oxygen Flow Rate 2 09/23/18 11:06 09/23/18 15:03 09/23/18 15:30 Temperature 36.4 C L 37.1 C Temperature Source Oral Oral Pulse Rate 64 Pulse Rate [Right Finger] 65 69 Respiratory Rate 16 18 Respiratory Effort / Characteristics Respiratory Depth Respiratory Pattern Blood Pressure [Left Arm] 120/69 121/62 Blood Pressure Mean [Left Arm] 86 81 Blood Pressure Position [Left Arm] Lying Lying Pulse Oximetry 93 91 Oxygen Delivery Method Room Air Room Air Oxygen Flow Rate 09/23/18 20:00 09/23/18 20:10 09/23/18 21:02 Temperature 37.7 C H Temperature Source Oral Pulse Rate Pulse Rate [Right Finger] 102 H 95 H Respiratory Rate 20 Respiratory Effort / Characteristics Non-Labored Spontaneous Respiratory Depth Normal Respiratory Pattern Regular Blood Pressure [Left Arm] 152/74 H 117/77 Blood Pressure Mean [Left Arm] 100 90 Blood Pressure Position [Left Arm] Lying Pulse Oximetry 92 Oxygen Delivery Method Room Air Oxygen Flow Rate 09/23/18 22:20 09/23/18 23:14 09/24/18 04:43 Temperature 36.6 C 36.8 C Temperature Source Oral Oral Pulse Rate 89 Pulse Rate [Right Finger] 84 79 Respiratory Rate 20 16 Respiratory Effort / Characteristics Non-Labored Spontaneous Respiratory Depth Normal Respiratory Pattern Regular Blood Pressure [Left Arm] 131/79 132/73 Blood Pressure Mean [Left Arm] 96 92 Blood Pressure Position [Left Arm] Lying Lying Pulse Oximetry 93 95 Oxygen Delivery Method Room Air Room Air Oxygen Flow Rate Vital signs reviewed. General: Somewhat ill-appearing male, in no significant distress. HEENT: No scleral icterus, PERRLA, neck supple. Atraumatic. Posterior oropharnyx is clear. Cardiovascular: Rate controlled and irregular rhythm, no extra sounds. Pulmonary: Clear to auscultation bilaterally, normal work of breathing. Moist cough. Abdomen: Soft, nontender, nondistended, positive bowel sounds. Musculoskeletal: Atraumatic, no peripheral edema. Neurologic: Patient awake alert and oriented x 3, full strength in all 4 extremities. Cranial nerves 2 through 12 grossly intact. Skin: Warm, dry, no rash Course 1218: [facility] and a complete history and physical examination were performed. 1418: I reviewed the patient's case with Shelley Brewer. Marj will evaluate the patient for further management. Consultations Consultation #1: I reviewed the patient's case with Shelley Brewer. Marj will evaluate the patient for further management. Time: 14:18 Administered Medications Acetaminophen (Tylenol) 650 mg PO Q4H PRN PRN Reason: Pain or Fever Stop: 10/22/18 16:45 Last Admin: 09/23/18 17:49 Dose: 650 mg Documented by: [id number] Admin: 09/23/18 08:20 Dose: 650 mg Documented by: [id number] Admin: 09/23/18 03:14 Dose: 650 mg Documented by: [id number] Admin: 09/22/18 17:05 Dose: 650 mg Documented by: [id number] Aspirin (Ecotrin Ectab) 81 mg PO QAM [facility] Stop: 10/23/18 08:59 Last Admin: 09/23/18 08:22 Dose: 81 mg Documented by: [id number] Lidocaine HCl 60 ml/Diphenhydramine HCl 150 mg/ Al Hydrox/Mg Hydrox/Simethicone 60 ml/ Glycerin 60 ml/ BARCODE IDENTIFIER 1 ea 0 ml PO Q4 PRN PRN Reason: throat pain Stop: 10/23/18 08:40 Last Admin: 09/23/18 11:25 Dose: 5 ml Documented by: [id number] Enoxaparin Sodium (Lovenox) 40 mg SQ [facility] Stop: 10/23/18 08:59 Last Admin: 09/23/18 09:35 Dose: 40 mg Documented by: [id number] Gabapentin (Neurontin) 300 mg PO BID [facility] Stop: 10/22/18 20:59 Last Admin: 09/23/18 21:06 Dose: 300 mg Documented by: [id number] Admin: 09/23/18 09:36 Dose: 300 mg Documented by: [id number] Admin: 09/22/18 20:38 Dose: 300 mg Documented by: [id number] Guaifenesin (Mucinex) 600 mg PO Q12 [facility] Stop: 10/23/18 18:29 Last Admin: 09/23/18 21:05 Dose: 600 mg Documented by: [id number] Admin: 09/23/18 19:39 Dose: 600 mg Documented by: [id number] Ampicillin Sodium/Sulbactam Sodium 3,000 mg/ Sodium Chloride 108 mls @ 216 mls/hr IV Q6H [facility]; Protocol Stop: 09/30/18 00:00 Last Infusion: 09/24/18 01:11 Dose: 0 mls/hr Documented by: [id number] Admin: 09/23/18 23:55 Dose: 216 mls/hr Documented by: [id number] Infusion: 09/23/18 18:23 Dose: 0 mls/hr Documented by: [id number] Admin: 09/23/18 17:38 Dose: 216 mls/hr Documented by: [id number] Infusion: 09/23/18 12:13 Dose: 0 mls/hr Documented by: [id number] Admin: 09/23/18 11:26 Dose: 216 mls/hr Documented by: [id number] Infusion: 09/23/18 06:35 Dose: 0 mls/hr Documented by: [id number] Admin: 09/23/18 06:05 Dose: 216 mls/hr Documented by: [id number] Infusion: 09/23/18 00:31 Dose: 0 mls/hr Documented by: [id number] Admin: 09/23/18 00:01 Dose: 216 mls/hr Documented by: [id number] Insulin Aspart (Novolog Flexpen) 0 units SC ACHS [facility] Stop: 10/22/18 16:45 Last Admin: 09/23/18 20:57 Dose: 3 units Documented by: [id number] Cosigned by: [id number] Admin: 09/23/18 17:40 Dose: 6 units Documented by: [id number] Cosigned by: [id number] Admin: 09/23/18 12:50 Dose: 3 units Documented by: [id number] Cosigned by: [id number] Admin: 09/23/18 09:35 Dose: 3 units Documented by: [id number] Cosigned by: [id number] Admin: 09/22/18 20:39 Dose: 4 units Documented by: [id number] Cosigned by: [id number] Admin: 09/22/18 18:19 Dose: Not Given Documented by: [id number] Cosigned by: [id number] Insulin Glargine (Lantus Solostar Pen) 10 units SC BID [facility] Stop: 10/23/18 20:59 Last Admin: 09/23/18 20:55 Dose: 10 units Documented by: [id number] Cosigned by: [id number] Lisinopril (Zestril) 20 mg PO QAM [facility] Stop: 10/23/18 06:29 Last Admin: 09/23/18 06:38 Dose: 20 mg Documented by: [id number] Metoprolol Tartrate (Lopressor) 25 mg PO BID [facility] Stop: 10/23/18 06:29 Last Admin: 09/23/18 21:05 Dose: 25 mg Documented by: [id number] Admin: 09/23/18 06:38 Dose: 25 mg Documented by: [id number] Nystatin (Mycostatin) 5 ml PO QID [facility] Stop: 10/22/18 16:59 Last Admin: 09/23/18 21:06 Dose: 5 ml Documented by: [id number] Admin: 09/23/18 16:21 Dose: 5 ml Documented by: [id number] Admin: 09/23/18 13:59 Dose: Not Given Documented by: [id number] Admin: 09/23/18 08:21 Dose: 5 ml Documented by: [id number] Admin: 09/22/18 20:38 Dose: 5 ml Documented by: [id number] Admin: 09/22/18 18:11 Dose: 5 ml Documented by: [id number] Ondansetron HCl (Zofran) 4 mg IV Q6H PRN PRN Reason: Nausea Stop: 10/22/18 16:45 Last Admin: 09/23/18 03:14 Dose: 4 mg Documented by: [id number] Admin: 09/22/18 17:30 Dose: 4 mg Documented by: [id number] Phenol (Chloraseptic 1.4% Paradox) 1 sprays MT Q4H PRN PRN Reason: Sore Throat Stop: 10/22/18 16:45 Last Admin: 09/22/18 18:30 Dose: 1 sprays Documented by: [id number] Rosuvastatin Calcium (Crestor) 20 mg PO QAM [facility] Stop: 10/23/18 08:59 Last Admin: 09/23/18 08:21 Dose: 20 mg Documented by: [id number] Tamsulosin [facility] ([facility]) [facility] [place]: 10/23/18 08:59 Last Admin: 09/23/18 08:21 Dose: 0.4 mg Documented by: [id number] Discontinued Medications Enoxaparin Sodium (Lovenox) 40 mg SQ QAM [facility] Stop: 10/22/18 16:45 Last Admin: 09/22/18 18:29 Dose: Not Given Documented by: [id number] Heparin Sodium (Porcine) (Heparin Sodium (Porcine)) 5,000 units SQ ONE ONE Stop: 09/22/18 16:47 Last Admin: 09/22/18 18:27 Dose: 5,000 units Documented by: [id number] Cosigned by: [id number] Magnesium Sulfate/Dextrose (Magnesium Sulfate / D5w) 1 gm in 100 mls @ 100 mls/hr IV ONE ONE Stop: 09/22/18 14:19 Last Infusion: 09/22/18 15:09 Dose: 0 mls/hr Documented by: [id number] Admin: 09/22/18 14:05 Dose: 100 mls/hr Documented by: [id number] Ampicillin Sodium/Sulbactam Sodium 3,000 mg/ Sodium Chloride 108 mls @ 200 mls/hr IV NOW STA; Protocol Stop: 09/22/18 14:53 Last Infusion: 09/22/18 15:59 Dose: 0 mls/hr Documented by: [id number] Admin: 09/22/18 15:17 Dose: 200 mls/hr Documented by: [id number] Sodium Chloride (Nss 1000ml) 1,000 mls @ 80 mls/hr IV .[id number] ONE Stop: 09/23/18 05:15 Last Infusion: 09/23/18 06:05 Dose: 0 mls/hr Documented by: [id number] Admin: 09/22/18 17:00 Dose: 80 mls/hr Documented by: [id number] Insulin Glargine (Lantus Solostar Pen) 10 units SC ONCE ONE Stop: 09/23/18 08:46 Last Admin: 09/23/18 09:34 Dose: 10 units Documented by: [id number] Cosigned by: [id number] Lisinopril (Zestril) 20 mg PO QAM [facility] Stop: 10/23/18 08:59 Last Admin: 09/23/18 06:22 Dose: 20 mg Documented by: [id number] Metoprolol Tartrate (Lopressor) 5 mg IV NOW STA Stop: 09/22/18 12:21 Last Admin: 09/22/18 13:06 Dose: 5 mg Documented by: [id number] Metoprolol Tartrate (Lopressor) 25 mg PO BID [facility] Stop: 10/22/18 20:59 Last Admin: 09/22/18 20:38 Dose: 25 mg Documented by: [id number] Oxymetazoline HCl (Afrin 0.05%) 2 sprays BLANCO NOW ONE Stop: 09/22/18 12:27 Last Admin: 09/22/18 13:15 Dose: 2 sprays Documented by: [id number] Perflutren Lipid Microsphere (Definity) 2 ml IV ONCE ONE Stop: 09/23/18 08:58 Last Admin: 09/23/18 08:58 Dose: 2 ml Documented by: [id number] Medical Decision Making Differential Diagnosis Differential diagnosis: Etiologies such as metabolic, infection, hypo/hyperglycemia, electrolyte ab normalities, cardiac sources, intracerebral event, toxicologic, neurologic, as well as others were entertained. Medical Records Attestation: I reviewed the patient's medical records. Home Medications Current Medication List: was personally reviewed by me Laboratory Data Attestation: I reviewed the patient's lab results. Result diagrams: 09/24/18 05:35 09/23/18 03:49 Lab Results 09/22/18 09/22/18 09/22/18 Range/Units 12:41 12:41 12:41 WBC 16.22 H (4.8-10.8) K/uL RBC 4.37 L (4.7-6.1) M/uL Hgb 13.9 L (14.0-18.0) g/dL Hct 39.3 L (42-52) % MCV 89.9 (80-100) fL MCH 31.8 (25-34) pg MCHC 35.4 (32-36) g/dL RDW Std Deviation 42.6 (36.4-46.3) fL RDW Coeff of Dorian 13.0 (11.5-14.5) % Plt Count 187 (130-400) K/uL MPV 10.4 (7.4-10.4) fL Immature Gran % (Auto) 0.2 % Neut % (Auto) 84.0 % Lymph % (Auto) 8.8 % [place] % (Auto) 6.7 % Eos % (Auto) 0.2 % Baso % (Auto) 0.1 % Immature Gran # (Auto) 0.03 H (0.00-0.02) K/uL Neut # (Auto) 13.63 H (1.4-6.5) K/uL Lymph # (Auto) 1.42 (1.2-3.4) K/uL [place] # (Auto) 1.08 H (0.11-0.59) K/uL Eos # (Auto) 0.04 (0-0.5) K/uL Baso # (Auto) 0.02 (0-0.2) K/uL PT 10.8 (9.0-12.0) Seconds INR 1.1 (0.9-1.1) Sodium (136-145) mmol/L Potassium (3.5-5.1) mmol/L Chloride (98-107) mmol/L Carbon Dioxide (21-32) mmol/L Anion Gap (3-11) BUN (7-18) mg/dl Creatinine (0.6-1.4) mg/dl Est Cr Clr Drug Dosing ml/min Est GFR ( Amer) Est GFR (Non-Af Amer) BUN/Creatinine Ratio (10-20) Glucose (70-99) mg/dl POC Glucose (70-99) Lactate (0.4-2.0) mmol/L Calcium (8.5-10.1) mg/dl Magnesium Cancelled Total Bilirubin (0.2-1) mg/dl AST (15-37) U/L ALT (12-78) U/L Alkaline Phosphatase (45-117) U/L Troponin I (0-0.045) ng/ml Total Protein (6.4-8.2) gm/dl Albumin (3.4-5.0) gm/dl Globulin (2.5-4.0) gm/dl Albumin/Globulin Ratio (0.9-2) TSH (0.300-4.500) uIu/ml Urine Color Urine Appearance (Clear) Urine pH (4.5-7.5) Ur Specific [place] (1.000-1.030) Urine Protein (Negative) Urine Glucose (UA) (Negative) Urine Ketones (Negative) Urine Blood (Negative) Urine Nitrite (Negative) Urine Bilirubin (Negative) Urine Urobilinogen (Negative) Ur Leukocyte Esterase (Negative) Urine WBC (Auto) (0-5) /hpf Urine RBC (Auto) (0-4) /hpf U Hyaline Cast (Auto) (0-5) /lpf U Epithel Cells (Auto) (0-5) /lpf Urine Bacteria (Auto) (Negative) Influenza Type A (PCR) (Neg) Influenza Type B (PCR) (Neg) 09/22/18 09/22/18 09/22/18 Range/Units 12:41 16:32 17:13 WBC (4.8-10.8) K/uL RBC (4.7-6.1) M/uL Hgb (14.0-18.0) g/dL Hct (42-52) % MCV (80-100) fL MCH (25-34) pg MCHC (32-36) g/dL RDW Std Deviation (36.4-46.3) fL RDW Coeff of Dorian (11.5-14.5) % Plt Count (130-400) K/uL MPV (7.4-10.4) fL Immature Gran % (Auto) % Neut % (Auto) % Lymph % (Auto) % [place] % (Auto) % Eos % (Auto) % Baso % (Auto) % Immature Gran # (Auto) (0.00-0.02) K/uL Neut # (Auto) (1.4-6.5) K/uL Lymph # (Auto) (1.2-3.4) K/uL [place] # (Auto) (0.11-0.59) K/uL Eos # (Auto) (0-0.5) K/uL Baso # (Auto) (0-0.2) K/uL PT (9.0-12.0) Seconds INR (0.9-1.1) Sodium 135 L (136-145) mmol/L Potassium 4.1 (3.5-5.1) mmol/L Chloride 101 (98-107) mmol/L Carbon Dioxide 26 (21-32) mmol/L Anion Gap 8.0 (3-11) BUN 20 H (7-18) mg/dl Creatinine 1.26 (0.6-1.4) mg/dl Est Cr Clr Drug Dosing 52.1 ml/min Est GFR ( Amer) 62.9 Est GFR (Non-Af Amer) 54.3 BUN/Creatinine Ratio 15.8 (10-20) Glucose 132 H (70-99) mg/dl POC Glucose 183 H (70-99) Lactate 1.7 (0.4-2.0) mmol/L Calcium 8.7 (8.5-10.1) mg/dl Magnesium 1.6 L Total Bilirubin 0.8 (0.2-1) mg/dl AST 24 (15-37) U/L ALT 21 (12-78) U/L Alkaline Phosphatase 61 (45-117) U/L Troponin I 0.088 H* (0-0.045) ng/ml Total Protein 6.7 (6.4-8.2) gm/dl Albumin 3.1 L (3.4-5.0) gm/dl Globulin 3.6 (2.5-4.0) gm/dl Albumin/Globulin Ratio 0.9 (0.9-2) TSH 1.090 (0.300-4.500) uIu/ml Urine Color Urine Appearance (Clear) Urine pH (4.5-7.5) Ur Specific [place] (1.000-1.030) Urine Protein (Negative) Urine Glucose (UA) (Negative) Urine Ketones (Negative) Urine Blood (Negative) Urine Nitrite (Negative) Urine Bilirubin (Negative) Urine Urobilinogen (Negative) Ur Leukocyte Esterase (Negative) Urine WBC (Auto) (0-5) /hpf Urine RBC (Auto) (0-4) /hpf U Hyaline Cast (Auto) (0-5) /lpf U Epithel Cells (Auto) (0-5) /lpf Urine Bacteria (Auto) (Negative) Influenza Type A (PCR) (Neg) Influenza Type B (PCR) (Neg) 09/22/18 09/22/18 09/22/18 Range/Units 19:08 20:32 21:41 WBC (4.8-10.8) K/uL RBC (4.7-6.1) M/uL Hgb (14.0-18.0) g/dL Hct (42-52) % MCV (80-100) fL MCH (25-34) pg MCHC (32-36) g/dL RDW Std Deviation (36.4-46.3) fL RDW Coeff of Dorian (11.5-14.5) % Plt Count (130-400) K/uL MPV (7.4-10.4) fL Immature Gran % (Auto) % Neut % (Auto) % Lymph % (Auto) % [place] % (Auto) % Eos % (Auto) % Baso % (Auto) % Immature Gran # (Auto) (0.00-0.02) K/uL Neut # (Auto) (1.4-6.5) K/uL Lymph # (Auto) (1.2-3.4) K/uL [place] # (Auto) (0.11-0.59) K/uL Eos # (Auto) (0-0.5) K/uL Baso # (Auto) (0-0.2) K/uL PT (9.0-12.0) Seconds INR (0.9-1.1) Sodium (136-145) mmol/L Potassium (3.5-5.1) mmol/L Chloride (98-107) mmol/L Carbon Dioxide (21-32) mmol/L Anion Gap (3-11) BUN (7-18) mg/dl Creatinine (0.6-1.4) mg/dl Est Cr Clr Drug Dosing ml/min Est GFR ( Amer) Est GFR (Non-Af Amer) BUN/Creatinine Ratio (10-20) Glucose (70-99) mg/dl POC Glucose 274 H (70-99) Lactate (0.4-2.0) mmol/L Calcium (8.5-10.1) mg/dl Magnesium Total Bilirubin (0.2-1) mg/dl AST (15-37) U/L ALT (12-78) U/L Alkaline Phosphatase (45-117) U/L Troponin I 0.074 H* (0-0.045) ng/ml Total Protein (6.4-8.2) gm/dl Albumin (3.4-5.0) gm/dl Globulin (2.5-4.0) gm/dl Albumin/Globulin Ratio (0.9-2) TSH (0.300-4.500) uIu/ml Urine Color Urine Appearance (Clear) Urine pH (4.5-7.5) Ur Specific [place] (1.000-1.030) Urine Protein (Negative) Urine Glucose (UA) (Negative) Urine Ketones (Negative) Urine Blood (Negative) Urine Nitrite (Negative) Urine Bilirubin (Negative) Urine Urobilinogen (Negative) Ur Leukocyte Esterase (Negative) Urine WBC (Auto) (0-5) /hpf Urine RBC (Auto) (0-4) /hpf U Hyaline Cast (Auto) (0-5) /lpf U Epithel Cells (Auto) (0-5) /lpf Urine Bacteria (Auto) (Negative) Influenza Type A (PCR) Neg for Influ A (Neg) Influenza Type B (PCR) Neg for Influ B (Neg) 09/22/18 09/23/18 09/23/18 Range/Units 23:05 03:49 03:49 WBC 9.72 (4.8-10.8) K/uL RBC 4.17 L (4.7-6.1) M/uL Hgb 12.9 L (14.0-18.0) g/dL Hct 38.0 L (42-52) % MCV 91.1 (80-100) fL MCH 30.9 (25-34) pg MCHC 33.9 (32-36) g/dL RDW Std Deviation 43.7 (36.4-46.3) fL RDW Coeff of Dorian 13.1 (11.5-14.5) % Plt Count 184 (130-400) K/uL MPV 10.5 H (7.4-10.4) fL Immature Gran % (Auto) % Neut % (Auto) % Lymph % (Auto) % [place] % (Auto) % Eos % (Auto) % Baso % (Auto) % Immature Gran # (Auto) (0.00-0.02) K/uL Neut # (Auto) (1.4-6.5) K/uL Lymph # (Auto) (1.2-3.4) K/uL [place] # (Auto) (0.11-0.59) K/uL Eos # (Auto) (0-0.5) K/uL Baso # (Auto) (0-0.2) K/uL PT (9.0-12.0) Seconds INR (0.9-1.1) Sodium 135 L (136-145) mmol/L Potassium 4.3 (3.5-5.1) mmol/L Chloride 100 (98-107) mmol/L Carbon Dioxide 25 (21-32) mmol/L Anion Gap 10.0 (3-11) BUN 20 H (7-18) mg/dl Creatinine 1.34 (0.6-1.4) mg/dl Est Cr Clr Drug Dosing 49.0 ml/min Est GFR ( Amer) 58.4 Est GFR (Non-Af Amer) 50.4 BUN/Creatinine Ratio 14.9 (10-20) Glucose 254 H (70-99) mg/dl POC Glucose (70-99) Lactate (0.4-2.0) mmol/L Calcium 8.4 L (8.5-10.1) mg/dl Magnesium 2.0 Total Bilirubin (0.2-1) mg/dl AST (15-37) U/L ALT (12-78) U/L Alkaline Phosphatase (45-117) U/L Troponin I 0.085 H* (0-0.045) ng/ml Total Protein (6.4-8.2) gm/dl Albumin (3.4-5.0) gm/dl Globulin (2.5-4.0) gm/dl Albumin/Globulin Ratio (0.9-2) TSH (0.300-4.500) uIu/ml Urine Color Yellow Urine Appearance Clear (Clear) Urine pH 5.0 (4.5-7.5) Ur Specific [place] 1.028 (1.000-1.030) Urine Protein 2+ H (Negative) Urine Glucose (UA) 3+ H (Negative) Urine Ketones 3+ H (Negative) Urine Blood 1+ H (Negative) Urine Nitrite Negative (Negative) Urine Bilirubin Negative (Negative) Urine Urobilinogen Negative (Negative) Ur Leukocyte Esterase Negative (Negative) Urine WBC (Auto) 1-5 (0-5) /hpf Urine RBC (Auto) 5-10 H (0-4) /hpf U Hyaline Cast (Auto) 1-5 (0-5) /lpf U Epithel Cells (Auto) 5-10 H (0-5) /lpf Urine Bacteria (Auto) Negative (Negative) Influenza Type A (PCR) (Neg) Influenza Type B (PCR) (Neg) 09/23/18 09/23/18 09/23/18 Range/Units 07:38 11:28 11:59 WBC (4.8-10.8) K/uL RBC (4.7-6.1) M/uL Hgb (14.0-18.0) g/dL Hct (42-52) % MCV (80-100) fL MCH (25-34) pg MCHC (32-36) g/dL RDW Std Deviation (36.4-46.3) fL RDW Coeff of Dorian (11.5-14.5) % Plt Count (130-400) K/uL MPV (7.4-10.4) fL Immature Gran % (Auto) % Neut % (Auto) % Lymph % (Auto) % [place] % (Auto) % Eos % (Auto) % Baso % (Auto) % Immature Gran # (Auto) (0.00-0.02) K/uL Neut # (Auto) (1.4-6.5) K/uL Lymph # (Auto) (1.2-3.4) K/uL [place] # (Auto) (0.11-0.59) K/uL Eos # (Auto) (0-0.5) K/uL Baso # (Auto) (0-0.2) K/uL PT (9.0-12.0) Seconds INR (0.9-1.1) Sodium (136-145) mmol/L Potassium (3.5-5.1) mmol/L Chloride (98-107) mmol/L Carbon Dioxide (21-32) mmol/L Anion Gap (3-11) BUN (7-18) mg/dl Creatinine (0.6-1.4) mg/dl Est Cr Clr Drug Dosing ml/min Est GFR ( Amer) Est GFR (Non-Af Amer) BUN/Creatinine Ratio (10-20) Glucose (70-99) mg/dl POC Glucose 235 H 249 H (70-99) Lactate (0.4-2.0) mmol/L Calcium (8.5-10.1) mg/dl Magnesium Total Bilirubin (0.2-1) mg/dl AST (15-37) U/L ALT (12-78) U/L Alkaline Phosphatase (45-117) U/L Troponin I 0.056 H* (0-0.045) ng/ml Total Protein (6.4-8.2) gm/dl Albumin (3.4-5.0) gm/dl Globulin (2.5-4.0) gm/dl Albumin/Globulin Ratio (0.9-2) TSH (0.300-4.500) uIu/ml Urine Color Urine Appearance (Clear) Urine pH (4.5-7.5) Ur Specific [place] (1.000-1.030) Urine Protein (Negative) Urine Glucose (UA) (Negative) Urine Ketones (Negative) Urine Blood (Negative) Urine Nitrite (Negative) Urine Bilirubin (Negative) Urine Urobilinogen (Negative) Ur Leukocyte Esterase (Negative) Urine WBC (Auto) (0-5) /hpf Urine RBC (Auto) (0-4) /hpf U Hyaline Cast (Auto) (0-5) /lpf U Epithel Cells (Auto) (0-5) /lpf Urine Bacteria (Auto) (Negative) Influenza Type A (PCR) (Neg) Influenza Type B (PCR) (Neg) 09/23/18 09/23/18 09/24/18 Range/Units 16:08 20:44 05:35 WBC 4.77 L (4.8-10.8) K/uL RBC 4.04 L (4.7-6.1) M/uL Hgb 12.3 L (14.0-18.0) g/dL Hct 37.1 L (42-52) % MCV 91.8 (80-100) fL MCH 30.4 (25-34) pg MCHC 33.2 (32-36) g/dL RDW Std Deviation 44.1 (36.4-46.3) fL RDW Coeff of Dorian 13.0 (11.5-14.5) % Plt Count 187 (130-400) K/uL MPV 10.1 (7.4-10.4) fL Immature Gran % (Auto) % Neut % (Auto) % Lymph % (Auto) % [place] % (Auto) % Eos % (Auto) % Baso % (Auto) % Immature Gran # (Auto) (0.00-0.02) K/uL Neut # (Auto) (1.4-6.5) K/uL Lymph # (Auto) (1.2-3.4) K/uL [place] # (Auto) (0.11-0.59) K/uL Eos # (Auto) (0-0.5) K/uL Baso # (Auto) (0-0.2) K/uL PT (9.0-12.0) Seconds INR (0.9-1.1) Sodium (136-145) mmol/L Potassium (3.5-5.1) mmol/L Chloride (98-107) mmol/L Carbon Dioxide (21-32) mmol/L Anion Gap (3-11) BUN (7-18) mg/dl Creatinine (0.6-1.4) mg/dl Est Cr Clr Drug Dosing ml/min Est GFR ( Amer) Est GFR (Non-Af Amer) BUN/Creatinine Ratio (10-20) Glucose (70-99) mg/dl POC Glucose 179 H 229 H (70-99) Lactate (0.4-2.0) mmol/L Calcium (8.5-10.1) mg/dl Magnesium Total Bilirubin (0.2-1) mg/dl AST (15-37) U/L ALT (12-78) U/L Alkaline Phosphatase (45-117) U/L Troponin I (0-0.045) ng/ml Total Protein (6.4-8.2) gm/dl Albumin (3.4-5.0) gm/dl Globulin (2.5-4.0) gm/dl Albumin/Globulin Ratio (0.9-2) TSH (0.300-4.500) uIu/ml Urine Color Urine Appearance (Clear) Urine pH (4.5-7.5) Ur Specific [place] (1.000-1.030) Urine Protein (Negative) Urine Glucose (UA) (Negative) Urine Ketones (Negative) Urine Blood (Negative) Urine Nitrite (Negative) Urine Bilirubin (Negative) Urine Urobilinogen (Negative) Ur Leukocyte Esterase (Negative) Urine WBC (Auto) (0-5) /hpf Urine RBC (Auto) (0-4) /hpf U Hyaline Cast (Auto) (0-5) /lpf U Epithel Cells (Auto) (0-5) /lpf Urine Bacteria (Auto) (Negative) Influenza Type A (PCR) (Neg) Influenza Type B (PCR) (Neg) Imaging Data Radiologist's Impression: Radiology results as stated below per my review and the radiologist's interpretation: XR chest 1V portable CLINICAL HISTORY: weakness COMPARISON STUDY: 12/15/2017 FINDINGS: The heart is enlarged. There are postsurgical changes of a midline sternotomy. There is elevation interstitium consistent with mild pulmonary vas cular congestion. There is no lobar consolidation. There are no significant pleural effusions. IMPRESSION: Cardiomegaly and suspected mild pulmonary vascular congestion. No evidence of lobar consolidation. Electronically signed by: James Grissom M.D. 09/22/2018 12:34 PM ECG Data Attestation: I personally reviewed and interpreted this ECG as follows: Indication: weakness Rate (beats per minute): 88 Rhythm: atrial fibrillation Findings: + RBBB; no acute ischemic change Blood Pressure Blood Pressure Findings: Normal blood pressure MDM Narrative This pt was evaluated and appeared to be in no distress. IV access was obtained and lab work was drawn. EKG confirms atrial fibrillation. Pt was hydrated with NSS, given IV metoprolol 5 mg for atrial fibrillation. intranasal afrin as administered for post nasal drip and congestion. Lab work reveals elevated WBC, and slight elevation of troponin. As pt does not sense when he is in a fib, this may have been the case for several days. Trop elevation is likely demand mediated as no acute ischemia is noted on EKG, no chest pain. CXR is clear. Pt was reevaluated and feeling allover ill. He was given IV unasayn for a bronchitis, he continues to cough up significant phelgm. Case was d/w the [facility] hospitalist VADIM Livingston who will evaluate the pt for further management. Pt and daughter are aware of the plan and agree. Impression & Plan Paroxysmal atrial fibrillation, Elevated troponin, Bronchitis Discharge Plan Visit Data *Final* Discharge Date/Time: 09/22/18 16:19 Chief Complaint: Illness Stated Complaint: SORE THROAT,FEVER,SHAKES,COUGH CONGESTION ED Provider: Sara Cheek Discharge Problem: Paroxysmal atrial fibrillation, Elevated troponin, Bronchitis Patient Disposition: Admitted As Inpatient Discharge Instructions Interventions: ED Discharge Assessment Last Done: 09/22/18 16:19 The scribe's documentation has been prepared under my direction and personally reviewed by me in its entirety. I confirm that the note above accurately reflects all work, treatment, procedures, and medical decision making performed by me.
--- NOTE | 2018-09-22 16:25 | CT Scan Report ---
CT soft tissue neck wo con CT DOSE: 501.55 mGy.cm CLINICAL HISTORY: Dysphagia/Odynophagia TECHNIQUE: Helical images were acquired without intravenous contrast. A dose lowering technique was utilized adhering to the principles of ALARA. COMPARISON STUDY: 12/15/2017 FINDINGS: Visualized portions lung apices are unremarkable No thyroid masses are visualized this noncontrast study. No salivary gland masses are visualized on this noncontrast study. No mucosal space masses are visualized this noncontrast study. There is no pathologic adenopathy given the limitations of a noncontrast study. There are no fluid collections to indicate an abscess. There is no evidence of airway compromise. Inflammatory changes are present within the maxilla sinuses similar to the prior study. There are moderate multilevel degenerative changes within the cervical spine. There are atherosclerotic carotid and vertebral calcifications. IMPRESSION: No acute abnormalities are visualized. Electronically signed by: James Grissom M.D. 09/22/2018 4:23 PM
[2018-09-22] MEDS ORDERED: DEXTROSE 50% 50 ML SYRINGE IV PRN (16:46)
[2018-09-22] MEDS ORDERED: ENOXAPARIN INJ 40 MG/0.4 ML SYR SQ SCH (16:46)
[2018-09-22] MEDS ORDERED: GLUCAGON FOR INJ 1 MG VIAL SQ PRN (16:46)
[2018-09-22] MEDS ORDERED: SODIUM CHLORIDE 0.9% 1000ML 1,000 ML IV ONE (16:46)
[2018-09-22] MEDS ORDERED: GLUCOSE 40% GEL 15 GM TUBE PO PRN (16:46)
[2018-09-22] MEDS ORDERED: ACETAMINOPHEN 500 MG TAB PO PRN (16:46)
[2018-09-22] MEDS ORDERED: HEPARIN SOD 5,000 UNIT/0.5 ML VIAL SQ ONE (16:46)
[2018-09-22] MEDS ORDERED: METOPROLOL TARTRATE 1 MG/ML VIAL IV PRN (16:46)
[2018-09-22] MEDS ORDERED: GLUCOSE 10 TABS/TUBE PO PRN (16:46)
[2018-09-22] MEDS ORDERED: CARBOHYDRATES FOR HYPOGLYCEMIA PO PRN (16:46)
[2018-09-22] MEDS ORDERED: POLYETHYLENE (MIRALAX) 17 GM PACK PO PRN (16:46)
[2018-09-22] MEDS ORDERED: CHLORASEPTIC 1.4% SOLN 180 ML BTL MT PRN (16:46)
[2018-09-22] MEDS: ACETAMINOPHEN 325 MG TAB PO PRN (17:05)
[2018-09-22] MEDS ORDERED: AMPICILLIN/SULBACTAM CONSULT ACTIVE PRN (17:14)
[2018-09-22] MEDS: ONDANSETRON INJ 2 MG/ML 2 ML VIAL IV PRN (17:30)
[2018-09-22] MEDS: NYSTATIN SUSP 500,000 U/5 ML UDC PO SCH ×2 (18:11→20:38)
[2018-09-22] MEDS: INSULIN ASPART 100 UNITS/ML 3 ML PEN SC SCH ×2 (18:19→20:39)
[2018-09-22 20:15] LABS: Influenza A virus by PCR Neg for Influ A (Neg); Influenza B virus by PCR Neg for Influ B (Neg)
[2018-09-22] MEDS: GABAPENTIN 300 MG CAP PO SCH (20:38)
[2018-09-22] MEDS ORDERED: METOPROLOL TARTRATE 25 MG TAB PO SCH (21:00)
[2018-09-22 23:22] LABS: Appearance Urine Clear (Clear); Bacteria Urine Automated Negative (Negative); Bilirubin Urine Negative (Negative); Color Urine Yellow; Glucose Urine UA 3+ (Negative); Leukocyte Esterase Urine Negative (Negative); Nitrite Urine Negative (Negative); Protein Urine 2+ (Negative); Specific Gravity Urine 1.028 (1.000-1.030); Urobilinogen Urine Negative (Negative)
[2018-09-22 23:29] LABS: Ketones Urine 3+ (Negative)
[2018-09-23] MEDS: AMPICILLIN/SULBACTAM SOD 3,000 MG in 0.9 % SODIUM CHLORIDE 100 ML IV SCH ×5 (00:01→23:55)
[2018-09-23] MEDS: ONDANSETRON INJ 2 MG/ML 2 ML VIAL IV PRN (03:14)
[2018-09-23] MEDS: ACETAMINOPHEN 325 MG TAB PO PRN ×3 (03:14→17:49)
[2018-09-23 04:26] LABS: Hemoglobin 12.9 g/dL (14.0-18.0); Mean Corpuscular Hgb Conc 33.9 g/dL (32-36); Mean Corpuscular Volume 91.1 fL (80-100); Mean Platelet Volume 10.5 fL (7.4-10.4); Platelet Count 184 K/uL (130-400); RDW Coefficient of Variation 13.1 % (11.5-14.5); RDW Standard Deviation 43.7 fL (36.4-46.3); Red Blood Count 4.17 M/uL (4.7-6.1); White Blood Count 9.72 K/uL (4.8-10.8)
[2018-09-23 04:42] LABS: BUN Creatinine Ratio 14.9 (10-20); Calcium 8.4 mg/dl (8.5-10.1); Est GFR (African American) 58.4; Est GFR (Non-African American) 50.4; Potassium 4.3 mmol/L (3.5-5.1)
[2018-09-23 04:49] LABS: Troponin I 0.085 ng/ml (0-0.045)
[2018-09-23] MEDS ORDERED: PROMETHAZINE HCL 12.5 MG in SODIUM CHLORIDE 0.9% 50 ML IV PRN (06:22)
[2018-09-23] MEDS: LISINOPRIL 20 MG TAB PO SCH (06:38)
[2018-09-23] MEDS: METOPROLOL TARTRATE 25 MG TAB PO SCH ×2 (06:38→21:05)
[2018-09-23] MEDS: NYSTATIN SUSP 500,000 U/5 ML UDC PO SCH ×4 (08:21→21:06)
[2018-09-23] MEDS: TAMSULOSIN HCL 0.4 MG CAP PO SCH (08:21)
[2018-09-23] MEDS: ROSUVASTATIN CALCIUM 20 MG TAB PO SCH (08:21)
[2018-09-23] MEDS: ASPIRIN 81 MG ECTAB PO SCH (08:22)
[2018-09-23] MEDS ORDERED: LIDOCAINE HCL 2% VISCOUS 60 ML, DiphenhydrAMINE Syrup 150 MG, ALUMINUM/MAGNESIUM SUSP 6... PO PRN (08:41)
[2018-09-23] MEDS ORDERED: INSULIN GLARGINE SOLOSTAR 100 UNITS/ML 3 ML PEN SC ONE (08:45)
[2018-09-23] MEDS ORDERED: PERFLUTREN LIPID MICROSPHERE (DEFINITY) IV ONE (08:57)
[2018-09-23] MEDS ORDERED: INSULIN GLARGINE SOLOSTAR 100 UNITS/ML 3 ML PEN SC SCH (09:00)
[2018-09-23] MEDS ORDERED: LISINOPRIL 20 MG TAB PO SCH (09:00)
[2018-09-23] MEDS: INSULIN ASPART 100 UNITS/ML 3 ML PEN SC SCH ×4 (09:35→20:57)
[2018-09-23] MEDS: ENOXAPARIN INJ 40 MG/0.4 ML SYR SQ SCH (09:35)
[2018-09-23] MEDS: GABAPENTIN 300 MG CAP PO SCH ×2 (09:36→21:06)
--- NOTE | 2018-09-23 14:38 | Hospitalist Progress Note ---
Date of Service September 23, 2018 Assessment & Plan (1) Bronchitis: Acute Bronchitis: Dysphagia: Possible Sepsis Meets SIRS criteria CXR: Cardiomegaly and suspected mild pulmonary vascular congestion. No evidence of lobar consolidation. Neck CT:No acute abnormalities are visualized Lactate levels: Normal Influenza Screen:Negative Blood cultures:Pending Continue IV Unasyn Day #2 Speech & Swallow eval requested Clear liquid diet--advance as tolerated Received IV fluids Aspiration Precautions Consider GI eval if necessary Afebrile today, Leukocytosis normalized Hypomagnesemia: Resolved Replace and monitor electrolytes as needed Mild Troponin elevation: Likely demand Ischemia due tachycardia/infection H/O CAD S/P CABG Trend cardiac enzymes trended down patient denies chest pain ECHO: No wall motion abnormality Continue Aspirin, Statin, Metoprolol, Lisinopril Atrial flutter-POA H/O Paroxysmal Atrial Fibrillation TSH:Normal Previously on Coumadin -Patient wasn't sure why it was discontinued Currently prefers not to be started on anticoagulation for afib continue aspirin Continue Metoprolol 25 mg BID Lopressor PRN Currently in sinus DM II: Will hold oral diabetic meds Last A1c:8.3 per patient checked 1 week ago at [place] Continue ISS, basal Insulin Adjust Insulin therapy as needed Monitor BGs Diabetic Neuropathy Continue gabapentin H/O TIA: Continue aspirin, statin DVT Px: Lovenox SQ Code Status: Full Code Disposition: Expect to discharge home when stable Subjective Patient is seen and examined at bedside Sore throat is improved Had an episode of vomiting overnight Denies any chest pain, shortness of breath, dizziness, nausea Feels better today Offers no other complaints Review of Systems Review of Systems: All systems reviewed & are unremarkable except as noted in HPI & below Physical Exam Physical Exam: Physical Exam: Vitals signs as noted above General Appearance:Moderately built and nourished, no apparent distress Head: normocephalic, Atraumatic Eyes: normal inspection, EOMI Neck: supple, Trachea midline Respiratory/Chest: Normal breath sounds, CTA Cardiovascular: S1, S2, No murmur Abdomen/GI:Soft, Non tender, Bowel sounds present Extremities/Musculoskelatal:normal inspection, no edema Neurologic/Psych:AAOX3, grossly no focal neurological deficits Skin: normal color, warm Results & Data Vital Signs (Past 12 Hours) Vital Signs Temp Pulse Pulse Resp BP Pulse Ox 09/23/18 11:06 36.4 C L 65 16 120/69 93 09/23/18 07:13 36.3 C L 73 18 168/72 H 98 09/23/18 07:00 68 09/23/18 05:21 37.3 C 84 17 172/77 H 96 Laboratory Results Short CBC 09/23/18 Range/Units 03:49 WBC 9.72 (4.8-10.8) K/uL Hgb 12.9 L (14.0-18.0) g/dL Hct 38.0 L (42-52) % Plt Count 184 (130-400) K/uL BMP 09/23/18 03:49 Sodium 135 L Potassium 4.3 Chloride 100 Carbon Dioxide 25 BUN 20 H Creatinine 1.34 Glucose 254 H Calcium 8.4 L Cardiac Enzymes 09/22/18 09/23/18 09/23/18 Range/Units 21:41 03:49 11:59 Troponin I 0.074 H* 0.085 H* 0.056 H* (0-0.045) ng/ml Urine 09/22/18 Range/Units 23:05 Urine Color Yellow Urine Appearance Clear (Clear) Urine pH 5.0 (4.5-7.5) Ur Specific [place] 1.028 (1.000-1.030) Urine Protein 2+ H (Negative) Urine Glucose (UA) 3+ H (Negative)
[2018-09-23] MEDS: guaiFENesin 600 MG TABCR PO SCH ×2 (19:39→21:05)
[2018-09-23] MEDS: INSULIN GLARGINE SOLOSTAR 100 UNITS/ML 3 ML PEN SC SCH (20:55)
[2018-09-24 05:53] LABS: Hematocrit (blood only) 37.1 % (42-52); Hemoglobin 12.3 g/dL (14.0-18.0); Mean Corpuscular Hgb Conc 33.2 g/dL (32-36); Mean Corpuscular Volume 91.8 fL (80-100); Mean Platelet Volume 10.1 fL (7.4-10.4); Platelet Count 187 K/uL (130-400); RDW Standard Deviation 44.1 fL (36.4-46.3); Red Blood Count 4.04 M/uL (4.7-6.1); White Blood Count 4.77 K/uL (4.8-10.8)
[2018-09-24] MEDS: AMPICILLIN/SULBACTAM SOD 3,000 MG in 0.9 % SODIUM CHLORIDE 100 ML IV SCH ×2 (06:15→11:52)
[2018-09-24 06:31] LABS: BUN Creatinine Ratio 16.8 (10-20); Calcium 8.4 mg/dl (8.5-10.1); Creatinine Clr Calc Pharmacy 50.2 ml/min; Est GFR (African American) 60.6; Est GFR (Non-African American) 52.3; Magnesium 2.2 mg/dl (1.8-2.4); Potassium 3.7 mmol/L (3.5-5.1)
[2018-09-24] MEDS: ASPIRIN 81 MG ECTAB PO SCH (07:48)
[2018-09-24] MEDS: TAMSULOSIN HCL 0.4 MG CAP PO SCH (07:48)
[2018-09-24] MEDS: ENOXAPARIN INJ 40 MG/0.4 ML SYR SQ SCH (07:48)
[2018-09-24] MEDS: INSULIN GLARGINE SOLOSTAR 100 UNITS/ML 3 ML PEN SC SCH (07:48)
[2018-09-24] MEDS: LISINOPRIL 20 MG TAB PO SCH (07:48)
[2018-09-24] MEDS: guaiFENesin 600 MG TABCR PO SCH (07:48)
[2018-09-24] MEDS: METOPROLOL TARTRATE 25 MG TAB PO SCH (07:48)
[2018-09-24] MEDS: GABAPENTIN 300 MG CAP PO SCH (07:48)
[2018-09-24] MEDS: NYSTATIN SUSP 500,000 U/5 ML UDC PO SCH ×3 (07:48→17:05)
[2018-09-24] MEDS: ROSUVASTATIN CALCIUM 20 MG TAB PO SCH (07:48)
[2018-09-24] MEDS: INSULIN ASPART 100 UNITS/ML 3 ML PEN SC SCH ×3 (07:55→17:05)
[2018-09-24] MEDS ORDERED: INSULIN GLARGINE SOLOSTAR 100 UNITS/ML 3 ML PEN SC SCH (09:00)
--- NOTE | 2018-09-24 15:48 | Hospitalist Progress Note ---
Date of Service September 24, 2018 Assessment & Plan (1) Allergic rhinitis: Patient's presentation was more likely secondary to chronic sinus infection/allergic rhinitis Patient reports of nasal congestion, and runny nose year-round Gets sore throat, dry cough intermittently, Requires Z-Chavo, prednisone taper every year during spring time Never seen a ENT specialist or interactive digital media specialist before Tried Claritin, as needed Benadryl, mention it helps with the symptoms, but not interested to take it -due to side effect of drowsiness Appears to be chronic allergic rhinitis/sinusitis Patient symptoms has markedly improved, denies of any nasal congestion, no cough, no posterior nasal drip, no headache, no sinus pain or discomfort Patient will be started with singular 10 mg p.o. daily, ordered for Flonase 2 sprays in each nostril twice daily for at least 1 month, Dose can be reduced to once daily if symptoms/chronic nasal congestion improves Patient is suggested to have a referral/follow-up with ENT in clinic Present on Admission?: Yes (2) Bronchitis: Presented with acute bronchitis, cough, sore throat CXR: Cardiomegaly and suspected mild pulmonary vascular congestion. No evidence of lobar consolidation. Neck CT:No acute abnormalities are visualized Influenza Screen:Negative URI symptoms has improved markedly, dysphagia secondary to sore throat has resolved Patient was treated with IV Unasyn day 3 Antibiotic changed to p.o. doxycycline (3) Paroxysmal atrial fibrillation: Atrial flutter-POA H/O Paroxysmal Atrial Fibrillation TSH:Normal Previously on Coumadin -Patient wasn't sure why it was discontinued Currently prefers not to be started on anticoagulation for afib continue aspirin Continue Metoprolol 25 mg BID Lopressor PRN Currently in sinus (4) Elevated troponin: Mild Troponin elevation: Likely demand Ischemia due tachycardia/infection /type II non-ST elevated [place] H/O CAD S/P CABG cardiac enzymes trended down patient denies chest pain /shortness of breath dyspnea on exertion no evidence of angina ECHO: No wall motion abnormality Continue Aspirin, Statin, Metoprolol, Lisinopril Present on Admission?: Yes (5) S/P CABG (coronary artery bypass graft): No acute issue, Continue outpatient cardiac meds (6) Hypertension: BP stable, cont patient meds DM II: Will hold oral diabetic meds Last A1c:8.3 per patient checked 1 week ago at [place] Continue ISS, basal Insulin Adjust Insulin therapy as needed Monitor BGs Diabetic Neuropathy Continue gabapentin H/O TIA: Continue aspirin, statin DVT Px: Lovenox SQ Code Status: Full code DISPOSITION : stable to be discharged home today Subjective no cough No fever or chills, sore throat has resolved, diet advanced to solid, tolerating well Energy level improved to baseline, normal appetite Feels well enough to be discharged home Physical Exam Physical Exam: GENERAL: No sign of distress, HEENT: Sclera nonicteric, pink-purple bilateral equal reactive to light extraocular muscle intact Normal oral mucosa, neck: No JVD, no thyromegaly, trachea midline Lungs: Clear to auscultate, no wheeze or rales Cardiovascular: Regular S1 and S2, no murmur or gallop, no JVD, no lower extremity edema Abdomen: Soft, nontender, bowel sounds active, no hepatosplenomegaly Extremities: No rash or deformity, normal joint, Neuro: No focal neurological deficit, no dysarthria, no facial droop Psych: Alert awake oriented x3: Euthymic Skin: No rash LYMPH NODES: No cervical lymphadenopathy Results & Data Vital Signs (Past 12 Hours) Vital Signs Temp Pulse Pulse Resp BP Pulse Ox 09/24/18 12:00 37 C 71 16 165/78 H 97 09/24/18 08:00 75 09/24/18 07:42 36.7 C 72 16 173/78 H 96 09/24/18 04:43 36.8 C 79 16 132/73 95 (1) Allergic rhinitis Allergic rhinitis seasonality: non-seasonal Allergic rhinitis trigger: unspecified Qualified Code(s): J30.89 - Other allergic rhinitis (2) Hypertension Hypertension type: essential hypertension Qualified Code(s): I10 - Essential (primary) hypertension
--- NOTE | 2018-09-24 18:55 | Discharge Summary ---
Date of Service September 24, 2018 Admission HPI Per Admitting Provider Patient is a 77-year-old male with history of DM II, CAD S/P CABG, Spinal stenosis, P.Afib, TIA, BPH and other problems presents with history of worsening sore throat associated with cough with clear expectoration, since 4 days duration. Also reports having fever with chills today. He states having pain while swallowing secondary to sore throat. He has not been drinking/eating well due to pain since last 2 days. He was evaluated at [facility] clinic yesterday and strep throat was negative. Feels tired. He reports having similar symptoms due to recurrent throat infections in the past. She states that he recently c ompleted prednisone taper course for back pain and developed having difficulty swallowing since completion of prednisone course. He was noted to be in Afib RVR while in ED and currently not on anticoagulation. Patient was previously on coumadin and was not sure why it was discontinued. Denies any bleeding issues. Currently he prefers NOT to be started on anticoagulation for atrial fibrillation. Follows with [facility]iology. Denies any history of chest pain, SOB, palpitations, dizziness, pedal edema, hemoptysis, nausea, vomiting, abdominal pain, diarrhea, dysuria, sick contact, recent change in medications. Principal Diagnosis ALLERGIC RHINITIS /BRONCITIS Discharge Data Allergies Allergy/AdvReac Type Severity Reaction Status Date / Time No Known Allergies Allergy Verified 09/22/18 13:48 Consultations 09/22/18 14:23 ED Decision to Admit Stat Ordered Studies 09/22/18 15:41 CT soft tissue neck wo con Urgent Hospital Course (1) Allergic rhinitis: Patient's presentation was more likely secondary to chronic sinus infection/allergic rhinitis Patient reports of nasal congestion, and runny nose year-round Gets sore throat, dry cough intermittently, Requires Z-Chavo, prednisone taper every year during spring time Never seen a ENT specialist or follow up specialist before Tried Claritin, as needed Benadryl, mention it helps with the symptoms, but not interested to take it -due to side effect of drowsiness Appears to be chronic allergic rhinitis/sinusitis Patient symptoms has markedly improved, denies of any nasal congestion, no cough, no posterior nasal drip, no headache, no sinus pain or discomfort Patient will be started with singular 10 mg p.o. daily, ordered for Flonase 2 sprays in each nostril twice daily for at least 1 month, Dose can be reduced to once daily if symptoms/chronic nasal congestion improves Patient is suggested to have a referral/follow-up with ENT in clinic (2) Bronchitis: Presented with acute bronchitis, cough, sore throat CXR: Cardiomegaly and suspected mild pulmonary vascular congestion. No evidence of lobar consolidation. Neck CT:No acute abnormalities are visualized Influenza Screen:Negative URI symptoms has improved markedly, dysphagia secondary to sore throat has resolved Patient was treated with IV Unasyn day 3 Antibiotic changed to p.o. doxycycline (3) Paroxysmal atrial fibrillation: Atrial flutter-POA H/O Paroxysmal Atrial Fibrillation TSH:Normal Previously on Coumadin -Patient wasn't sure why it was discontinued Currently prefers not to be started on anticoagulation for afib continue aspirin Continue Metoprolol 25 mg BID Lopressor PRN Currently in sinus (4) Elevated troponin: Mild Troponin elevation: Likely demand Ischemia due tachycardia/infection /type II non-ST elevated [place] H/O CAD S/P CABG cardiac enzymes trended down patient denies chest pain /shortness of breath dyspnea on exertion no evidence of angina ECHO: No wall motion abnormality Continue Aspirin, Statin, Metoprolol, Lisinopril (5) S/P CABG (coronary artery bypass graft): No acute issue, Continue outpatient cardiac meds (6) Hypertension: BP stable, cont patient meds DM II: Will hold oral diabetic meds Last A1c:8.3 per patient checked 1 week ago at [place] Continue ISS, basal Insulin Adjust Insulin therapy as needed Monitor BGs Diabetic Neuropathy Continue gabapentin H/O TIA: Continue aspirin, statin DVT Px: Lovenox SQ Code Status: Full code DISPOSITION : stable to be discharged home today Total Time Total Time Spent Total Time Spent (In Minutes): APPROX 45 MINS Total Time Includes: Examination of the Patient, Discharge Planning and Medication Reconciliation Discharge Plan Discharge Items Patient Disposition: Home - Self-Care Reason For Visit: DYSPHAGIA,URI Discharge Diagnosis: BRONCHITIS /ALLERGIC RHINITIS Discharge Goals: Decrease discomfort, Diagnostic testing and Therapeutic intervention Activity: Resume your previous activity Non-emergency contact: Primary Care Provider Call non-emergency contact if: you have any medication questions Follow-up/Referrals: Ramón Sandy MD [Surgeon] - Favian Calero MD [Primary Care Provider] - 10/01/18 3:00 pm Diet: Heart Healthy Addtl Provider Instructions: ENT FOLLOW UP WITH DR SANDY AT [facility] NEED REFERRAL FOR ENT ( EAR/NOSE /THROAT ) SPECIALIST FOR SEASONAL ALLERGY /CHRONIC SINUSITIS HOSPITAL FOLLOW UP WITH DR CALERO 10/01/2018 @ 3 pm Prescriptions: New montelukast [Singulair] 10 mg tablet 10 mg PO DAILY 30 Days Qty: 30 RF: 3 fluticasone propionate [Flonase Allergy Relief] 50 mcg/actuation spray,suspension 2 sprays INTNAS BID Qty: 1 RF: 3 doxycycline hyclate 100 mg capsule 100 mg PO BID 5 Days Qty: 10 RF: 0 Continued multivitamin Tablet 1 tab PO QAM RF: 0 vitamin E 1,000 unit Capsule PO QAM RF: 0 Lantus U-100 Insulin 100 unit/mL Solution 20 unit SUBCUT QAM RF: 0 lisinopril 20 mg tablet 20 mg PO QAM RF: 0 aspirin 81 mg Tablet,Delayed Release (Dr/Ec) 81 mg PO QAM RF: 0 acetaminophen [Tylenol Extra Strength] 500 mg Tablet 500 mg PO Q6H PRN (Reason: Pain) RF: 0 tamsulosin 0.4 mg capsule 0.4 mg PO QAM RF: 0 metformin 1,000 mg tablet 1,000 mg PO BIDM RF: 0 Novolin R Regular U-100 Insuln 100 unit/mL Solution 1 sliding scale dose SUBCUT USEASDIRECTD RF: 0 gabapentin 300 mg capsule 300 mg PO BID RF: 0 rosuvastatin [Crestor] 20 mg Tablet 20 mg PO QAM RF: 0 metoprolol tartrate 25 mg tablet 25 mg PO BID RF: 0 Stand-Alone Forms: [facility]/Other Patient Handouts: Allergies Nasal Related Probs, Sinusitis Chronic, Sinusitis Prevent, Sinusitis Self Care, Sinusitis Chronic Tx Discharge Orders: Discharge Order (Routine); Ordered 09/24/18 Ordered By: Janeth Acuna Admission Data Admit Date/Time: 09/22/18 15:39 Attending Provider: Janeth Acuna Admit Provider: Candelario Shin Primary Care Provider: Favian Calero Other Providers: Candelario Shin Service: Telemetry Other Interventions: Discharge Summary Assessment (RN) Last Done: 09/24/18 17:32 DC Date/Time DO NOT enter until pt leaves facility: 09/24/18 17:51
--- NOTE | 2018-09-27 11:44 | Coding Query ---
To promote full compliance with coding requirements relating to patient care, provider participation is requested in all cases of burglar alarm mechanic uncertainty. Please assist us with the question(s) below: Coding Question(s): The diagnosis below was documented in the H&P, and 09/23 PN then subsequently fell off all further documentation. Please indicate if it is still a possible diagnosis or ruled out. Physician's Response(s): SEPSIS ( ) Diagnosed and POA ( ) Diagnosed and not POA ( x) Ruled out ( ) Other (please specify) MTDD
== END 2018-09-24 17:51 | disposition home or self-care (01) | DRG 202 ==
LOC: ED 12:04 → 2N 15:39 → SUATTDRO 15:39 → 2N 16:19

== ENCOUNTER 2020-02-05 09:41 | Inpatient (IN) ==
[2020-02-05] MEDS ORDERED: ONDANSETRON INJ 2 MG/ML 2 ML VIAL IV STA (10:10)
[2020-02-05] MEDS ORDERED: ACETAMINOPHEN 1,000 MG/100 ML VIAL IV STA (10:10)
--- NOTE | 2020-02-05 10:23 | Emergency Department Note ---
History of Present Illness General Chief complaint: Fever Stated complaint: SORE THROAT,HASNT EATEN x2 DAYS,DIARRHEA Time Seen by Provider: 02/05/20 09:52 History of Present Illness Provider complaint: Fever COVID-19 exposure Onset (ago): day(s) 2 Location: mouth, chest, back and abdomen Severity: moderate Pain Consistency: + intermittent Maximum Pain Intensity: 9 Current Pain Intensity: 9 Quality: + aching Relieved By: + none Exacerbated By: + none Associated symptoms: + cough, + fever/chills, + nausea/vomiting and + shortness of breath 79-year-old male presents emergency department with fever and COVID exposure and a multitude of symptoms. Patient's brother has been staying with him who is from [place] and tested positive for COVID. Patient states over the last 2 days he has had fever, sore throat, cough, difficulty breathing. He denies any hemoptysis. Patient does have productive cough. Patient denies any melena or hematochezia. Patient denies any hematuria. He denies any chest pain. Patient does state he has been having severe back pain in his lower back for last 2 days has had urinary incontinence. Patient reports nausea. He reports he vomited twice this morning. No hematemesis coffee-ground emesis or bilious vomiting. Patient has a history of esophageal cancer but states he is no longer getting any chemotherapy or radiation treatment and has been cleared of chemotherapy for the last year. Home Medications Home Medications Medication Instructions Recorded Confirmed Type Lantus U-100 Insulin 20 unit SUBCUT QA 09/22/18 02/05/20 History Novolin R Regular U-100 Insuln 1 sliding scale dose SUBCUT 09/22/18 02/05/20 History USEASDIRECTD acetaminophen [Tylenol Extra 500 - 1,000 mg PO Q6H PRN 09/22/18 02/05/20 History Strength] aspirin 81 mg PO QAM 09/22/18 02/05/20 History gabapentin 300 mg PO BID 09/22/18 02/05/20 History lisinopril 20 mg PO QAM 09/22/18 02/05/20 History metformin 1,000 mg PO BIDM 09/22/18 02/05/20 History metoprolol tartrate 25 mg PO BID 09/22/18 02/05/20 History multivitamin 1 tab PO QAM 09/22/18 02/05/20 History rosuvastatin [Crestor] 20 mg PO QAM 09/22/18 02/05/20 History tamsulosin 0.4 mg PO QAM 09/22/18 02/05/20 History vitamin E 1,000 unit capsule 1,000 units PO QAM cap 04/03/19 02/05/20 History Allergies Allergy/AdvReac Type Severity Reaction Status Date / Time No Known Allergies Allergy Verified 02/05/20 10:46 Past Med/Surg History Medical History Diabetes mellitus, type 2 IDDM Diabetic neuropathy Enlarged prostate Esophageal cancer History of atrial fibrillation History of cardioversion Hyperlipidemia Hypertension Myocardial Infarction 8 YEARS AGO Regurgitation of food Surgical History H/O eye surgery RT/LEFT LASER SURGERY FOR RETINA BREATHING History of appendectomy History of bronchoscopy History of cardiac cath 8 YEARS AGO AT [facility] History of colonoscopy History of esophagogastroduodenoscopy (EGD) History of tooth extraction Lipoma REMOVED FROM BACK Pilonidal cyst EXCISION Previous back surgery S/P CABG (coronary artery bypass graft) 8 YEARS AGO ([facility]) REPAIRED 3 VESSELS Family History Mother , age 80 Stroke Father , age 82 Cancer not sure kind of cancer Brother Coronary heart disease Crohn's disease Diabetes Brother Coronary heart disease Lung cancer Brother No problems noted. Brother No problems noted. Brother , age 16 Accident from a ruptured spleen when playing baseball Brother , age 86 Cancer not sure what kind Sister Alzheimer disease Sister No problems noted. Sister , age 41 Brainstem hemorrhage after surgery Sister , age 69 Diabetes Complications from DM Son No problems noted. Son No problems noted. Daughter No problems noted. 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 [employer] / also worked at a [employer] Feels Safe at Home: Yes Childhood Exposure to Second-Hand Smoke: Yes Assistive Devices: Denture - Upper, Glasses and Hearing Aid - Bilateral Review of Systems A total of 10 systems reviewed and were otherwise negative Physical Exam Vital Signs Vital Signs - 24 hr 02/05/20 09:51 02/05/20 10:38 02/05/20 10:51 Temperature 38.1 C H Temperature Source Oral Pulse Rate 97 H 91 H 97 H Pulse Rate from SpO2 Sensor 91 H Pulse Rhythm Regular Regular Pulse Strength Normal Respiratory Rate 22 20 22 Respiratory Effort / Characteristics Non-Labored Spontaneous Respiratory Depth Normal Respiratory Pattern Regular Blood Pressure 176/89 H 178/82 H Blood Pressure Mean 118 114 Blood Pressure Position Sitting Pulse Oximetry 95 95 95 Oxygen Delivery Method Room Air Room Air Sepsis Recent Fever Within 48 Hours Yes Sepsis New/Unexplained Change in Mental Status No Sepsis Action Taken by Nursing Physician Notified 02/05/20 11:00 02/05/20 11:30 02/05/20 12:00 Temperature Temperature Source Pulse Rate 92 H 85 84 Pulse Rate from SpO2 Sensor 86 84 Pulse Rhythm Pulse Strength Respiratory Rate 21 30 H 10 L Respiratory Effort / Characteristics Respiratory Depth Respiratory Pattern Blood Pressure 165/78 H 141/75 H 115/58 L Blood Pressure Mean 121 86 63 Blood Pressure Position Pulse Oximetry 92 94 Oxygen Delivery Method Sepsis Recent Fever Within 48 Hours Sepsis New/Unexplained Change in Mental Status Sepsis Action Taken by Nursing 02/05/20 12:09 02/05/20 12:30 02/05/20 12:54 Temperature Temperature Source Pulse Rate 80 81 Pulse Rate from SpO2 Sensor 80 79 Pulse Rhythm Pulse Strength Respiratory Rate 23 17 Respiratory Effort / Characteristics Non-Labored Spontaneous Respiratory Depth Respiratory Pattern Blood Pressure 89/49 L 119/54 L Blood Pressure Mean 64 66 Blood Pressure Position Pulse Oximetry 94 94 94 Oxygen Delivery Method Room Air Sepsis Recent Fever Within 48 Hours Sepsis New/Unexplained Change in Mental Status Sepsis Action Taken by Nursing 02/05/20 13:00 02/05/20 13:30 02/05/20 14:45 Temperature 38.2 C H Temperature Source Oral Pulse Rate 82 80 Pulse Rate from SpO2 Sensor 76 83 80 Pulse Rhythm Pulse Strength Respiratory Rate 23 23 18 Respiratory Effort / Characteristics Non-Labored Spontaneous Non-Labored Spontaneous Respiratory Depth Respiratory Pattern Blood Pressure 137/50 L 123/64 117/64 Blood Pressure Mean 74 72 81 Blood Pressure Position Pulse Oximetry 95 95 96 Oxygen Delivery Method Room Air Room Air Room Air Sepsis Recent Fever Within 48 Hours Sepsis New/Unexplained Change in Mental Status Sepsis Action Taken by Nursing 02/05/20 14:49 02/05/20 15:00 02/05/20 15:21 Temperature Temperature Source Pulse Rate 85 Pulse Rate from SpO2 Sensor 82 Pulse Rhythm Pulse Strength Respiratory Rate 23 19 15 Respiratory Effort / Characteristics Non-Labored Spontaneous Non-Labored Spontaneous Respiratory Depth Respiratory Pattern Blood Pressure 128/75 Blood Pressure Mean 100 Blood Pressure Position Pulse Oximetry 95 95 95 Oxygen Delivery Method Room Air Room Air Sepsis Recent Fever Within 48 Hours Sepsis New/Unexplained Change in Mental Status Sepsis Action Taken by Nursing 02/05/20 15:30 02/05/20 16:00 02/05/20 16:30 Temperature Temperature Source Pulse Rate 86 93 H 92 H Pulse Rate from SpO2 Sensor 84 95 H Pulse Rhythm Pulse Strength Respiratory Rate 19 16 22 Respiratory Effort / Characteristics Non-Labored Spontaneous Respiratory Depth Respiratory Pattern Blood Pressure 139/65 130/67 131/62 Blood Pressure Mean 96 78 74 Blood Pressure Position Pulse Oximetry 95 91 Oxygen Delivery Method Room Air Sepsis Recent Fever Within 48 Hours Sepsis New/Unexplained Change in Mental Status Sepsis Action Taken by Nursing Physical Exam GENERAL: He is oriented to person, place, and time. He appears well-developed and well-nourished. He does not appear distressed. HENT: Exam performed. - Head: Normocephalic and atraumatic. - Right Ear: External ear normal. No mastoid tenderness. - Left Ear: External ear normal. No mastoid tenderness. - Mouth/Throat: The oropharynx is clear and moist. No trismus in the jaw. No dental abscesses or uvula swelling. No oropharyngeal exudate or tonsillar abscesses. EYES: Conjunctivae and EOM are normal. Pupils are equal, round, and reactive to light. Right eye exhibits no discharge. Left eye exhibits no discharge. No scleral icterus. NECK: Normal range of motion. Neck supple. No JVD present. No spinous process tenderness present. No carotid bruit present. No rigidity. No tracheal deviation and normal range of motion present. No Brudzinski's sign and no Kernig's sign noted. CV: Normal rate, regular rhythm, normal heart sounds and intact distal pulses. There is no peripheral edema. Palpable radial pulses bue. PULM/CHEST: Rhonchi bilaterally. - Chest Wall: He exhibits no tenderness. ABD: The abdomen is soft. Bowel sounds are normal. He has no distension. No mass is present. There is no tenderness. There is no rebound, no guarding, no Brock's sign and no tenderness at McBurney's point. Rovsig negative. MUSC/SKEL: No C or T-spine tenderness. Pain on palpation L-spine. LYMPH: No cervical adenopathy. NEURO: He is alert and oriented to person, place, and time. Motor and sensation grossly intact. No saddle anesthesia or paresthesias SKIN: Skin is warm and dry. He is not diaphoretic. PSYCH: He has a normal mood and affect. Behavior is normal. Judgment and thought content normal. Course Course 09: The patient was evaluated in room C5. A complete history and physical exam was performed. Cardiac monitoring: An order was placed for continuous cardiac monitoring. The monitor shows a rate of 100 with sinus rhythm Patient was placed in airborne precautions. Full PPE was formed by myself and staff. 1247: Vital signs stable. Patient is stable on room air. Patient is COVID-19 positive. He has an elevated troponin. Patient has a history of elevated troponins. Lactic acid is elevated 2.3. Patient's creatinine is elevated 1.77. MRI called and stated that they would not scan the patient due to them being COVID-19 positive. 1252: Spoke with Lor who said to speak with Dr. Arora regarding getting MRI done. She stated call her at [phone]. 1307: Discussed with Dr. Arora. Given the patient's fever, history of esophageal cancer, history of back surgery by Dr. Miranda, reported back pain, and urinary incontinence both Dr. Arora and I agreed that the patient should receive MRI to rule out cord compression. MRI machine will need to be shut do wn for 2 hours after scan to cleanse the machine. Both he and I are comfortable with this and feel like it is in the best interest of the patient to perform MRI at this time. 1440: Vital signs stable. MRI negative for cord compression. Given the patient's elevated lactic acid level, acute kidney injury, and COVID-19 positive the patient will be admitted to the hospital service. [facility] hospitalist contacted. 1507: Spoke with Marj Rosa PA-C who stated to admit to Dr. Townsend Administered Medications Sodium Chloride (Nss 1000ml) 1,000 mls @ 125 mls/hr IV .Q8H JUAN Stop: 03/06/20 10:14 Last Admin: 02/05/20 10:42 Dose: 125 mls/hr Documented by: [id number] Discontinued Medications Gadobutrol (Gadobutrol 65ml Vial) 9 ml IV ONCE ONE Stop: 02/05/20 14:22 Last Admin: 02/05/20 14:21 Dose: 9 ml Documented by: [id number] Acetaminophen (Ofirmev) 1,000 mg in 100 mls @ 400 mls/hr IV NOW STA Stop: 02/05/20 10:24 Last Infusion: 02/05/20 11:05 Dose: 0 mls/hr Documented by: [id number] Admin: 02/05/20 10:42 Dose: 400 mls/hr Documented by: [id number] Morphine Sulfate (Morphine Sulfate 4 Mg/Ml 1 Ml Carp\Vial) 2 mg IV NOW STA Stop: 02/05/20 13:09 Last Admin: 02/05/20 13:54 Dose: Not Given Documented by: [id number] Morphine Sulfate (Morphine Sulfate 2 Mg/Ml Carp) Confirm Administered Dose 2 mg .ROUTE .STK-MED ONE Stop: 02/05/20 13:41 Last Admin: 02/05/20 13:53 Dose: 2 mg Documented by: [id number] Ondansetron HCl (Ondansetron Inj 2 Mg/Ml 2 Ml Vial) 4 mg IV NOW STA Stop: 02/05/20 10:11 Last Admin: 02/05/20 10:42 Dose: 4 mg Documented by: [id number] Medical Decision Making Laboratory Data Result diagrams: 02/05/20 10:37 02/05/20 10:37 Lab Results 02/05/20 02/05/20 02/05/20 Range/Units 10:35 10:35 10:37 WBC 6.87 (4.8-10.8) K/uL RBC 3.94 L (4.7-6.1) M/uL Hgb 12.1 L (14.0-18.0) g/dL Hct 35.2 L (42-52) % MCV 89.3 (80-100) fL MCH 30.7 (25-34) pg MCHC 34.4 (32-36) g/dL RDW Std Deviation 41.3 (36.4-46.3) fL RDW Coeff of Dorian 12.8 (11.5-14.5) % Plt Count 149 (130-400) K/uL MPV 9.8 (7.4-10.4) fL Immature Gran % (Auto) 0.1 % Neut % (Auto) 74.3 % Lymph % (Auto) 16.0 % [facility] % (Auto) 9.5 % Eos % (Auto) 0.0 % Baso % (Auto) 0.1 % Neut # (Auto) 5.10 (1.4-6.5) K/uL Lymph # (Auto) 1.10 L (1.2-3.4) K/uL [facility] # (Auto) 0.65 H (0.11-0.59) K/uL Eos # (Auto) 0.00 (0-0.5) K/uL Baso # (Auto) 0.01 (0-0.2) K/uL Immature Gran # (Auto) 0.01 (0.00-0.02) K/uL ESR (0-14) mm/hr PT (9.0-12.0) Seconds INR (0.9-1.1) APTT (21.0-31.0) Seconds PTT Ratio VBG pH (7.36-7.41) VBG pCO2 (38-50) mmHg VBG pO2 mmHg VBG HCO3 mmol/L VBG O2 Saturation % VBG Base Excess mEq/L Barometric Pressure mm/Hg Sodium (136-145) mmol/L Potassium (3.5-5.1) mmol/L Chloride (98-107) mmol/L Carbon Dioxide (21-32) mmol/L Anion Gap (3-11) BUN (7-18) mg/dl Creatinine (0.6-1.4) mg/dl Est Cr Clr Drug Dosing ml/min Est GFR ( Amer) Est GFR (Non-Af Amer) BUN/Creatinine Ratio (10-20) Glucose (70-99) mg/dl POC Glucose (70-99) mg/dl Lactate (0.4-2.0) mmol/L Calcium (8.5-10.1) mg/dl Magnesium (1.8-2.4) mg/dl Total Bilirubin (0.2-1) mg/dl AST (15-37) U/L ALT (12-78) U/L Alkaline Phosphatase (45-117) U/L Total Creatine Kinase (39-308) U/L Troponin I (0-0.045) ng/ml C-Reactive Protein (0-0.29) mg/dl Total Protein (6.4-8.2) gm/dl Albumin (3.4-5.0) gm/dl Globulin (2.5-4.0) gm/dl Albumin/Globulin Ratio (0.9-2) Procalcitonin (0-0.5) ng/ml Urine Color Urine Appearance (Clear) Urine pH (4.5-7.5) Ur Specific Brickeys (1.000-1.030) Urine Protein (Negative) Urine Glucose (UA) (Negative) Urine Ketones (Negative) Urine Blood (Negative) Urine Nitrite (Negative) Urine Bilirubin (Negative) Urine Urobilinogen (Negative) Ur Leukocyte Esterase (Negative) Urine WBC (Auto) (0-5) /hpf Urine RBC (Auto) (0-4) /hpf U Hyaline Cast (Auto) (0-5) /lpf U Epithel Cells (Auto) (0-5) /lpf Urine Bacteria (Auto) (Negative) Adenovirus (PCR) Not Detected (NotDetected) B. pertussis DNA (PCR) Not Detected (NotDetected) B.parapertussis DNA PCR Not Detected (NotDetected) C. pneumoniae DNA (PCR) Not Detected (NotDetected) Coronavirus OC43 (PCR) Not Detected (NotDetected) Coronavirus HKU1 (PCR) Not Detected (NotDetected) Coronavirus 229E (PCR) Not Detected (NotDetected) COVID-19 Eval Order Dup asRespPanOrdered COVID-19 PCR DETECTED A* (NotDetected) Coronavirus NL63 (PCR) Not Detected (NotDetected) Human Metapneumovir PCR Not Detected (NotDetected) Influenza Type A (PCR) Not Detected (NotDetected) Influenza Type B (PCR) Not Detected (NotDetected) M. pneumoniae (PCR) Not Detected (NotDetected) Parainfluenza 1 (PCR) Not Detected (NotDetected) Parainfluenza 2 (PCR) Not Detected (NotDetected) Parainfluenza 3 (PCR) Not Detected (NotDetected) Parainfluenza 4 (PCR) Not Detected (NotDetected) RSV (PCR) Not Detected (NotDetected) Entero/Rhino (PCR) Not Detected (NotDetected) 02/05/20 02/05/20 02/05/20 Range/Units 10:37 10:37 10:37 WBC (4.8-10.8) K/uL RBC (4.7-6.1) M/uL Hgb (14.0-18.0) g/dL Hct (42-52) % MCV (80-100) fL MCH (25-34) pg MCHC (32-36) g/dL RDW Std Deviation (36.4-46.3) fL RDW Coeff of Dorian (11.5-14.5) % Plt Count (130-400) K/uL MPV (7.4-10.4) fL Immature Gran % (Auto) % Neut % (Auto) % Lymph % (Auto) % [facility] % (Auto) % Eos % (Auto) % Baso % (Auto) % Neut # (Auto) (1.4-6.5) K/uL Lymph # (Auto) (1.2-3.4) K/uL [facility] # (Auto) (0.11-0.59) K/uL Eos # (Auto) (0-0.5) K/uL Baso # (Auto) (0-0.2) K/uL Immature Gran # (Auto) (0.00-0.02) K/uL ESR (0-14) mm/hr PT 11.0 (9.0-12.0) Seconds INR 1.0 (0.9-1.1) APTT 28.2 (21.0-31.0) Seconds PTT Ratio 1.0 VBG pH (7.36-7.41) VBG pCO2 (38-50) mmHg VBG pO2 mmHg VBG HCO3 mmol/L VBG O2 Saturation % VBG Base Excess mEq/L Barometric Pressure mm/Hg Sodium 134 L (136-145) mmol/L Potassium 4.1 (3.5-5.1) mmol/L Chloride 99 (98-107) mmol/L Carbon Dioxide 28 (21-32) mmol/L Anion Gap 7.0 (3-11) BUN 22 H (7-18) mg/dl Creatinine 1.77 H (0.6-1.4) mg/dl Est Cr Clr Drug Dosing 36.1 ml/min Est GFR ( Amer) 41.1 Est GFR (Non-Af Amer) 35.5 BUN/Creatinine Ratio 12.6 (10-20) Glucose 219 H (70-99) mg/dl POC Glucose (70-99) mg/dl Lactate 2.3 H* (0.4-2.0) mmol/L Calcium 9.0 (8.5-10.1) mg/dl Magnesium 1.8 (1.8-2.4) mg/dl Total Bilirubin 0.5 (0.2-1) mg/dl AST 39 H (15-37) U/L ALT 40 (12-78) U/L Alkaline Phosphatase 70 (45-117) U/L Total Creatine Kinase 202 (39-308) U/L Troponin I 0.187 H* (0-0.045) ng/ml C-Reactive Protein 1.89 H (0-0.29) mg/dl Total Protein 7.4 (6.4-8.2) gm/dl Albumin 3.8 (3.4-5.0) gm/dl Globulin 3.6 (2.5-4.0) gm/dl Albumin/Globulin Ratio 1.1 (0.9-2) Procalcitonin (0-0.5) ng/ml Urine Color Urine Appearance (Clear) Urine pH (4.5-7.5) Ur Specific Brickeys (1.000-1.030) Urine Protein (Negative) Urine Glucose (UA) (Negative) Urine Ketones (Negative) Urine Blood (Negative) Urine Nitrite (Negative) Urine Bilirubin (Negative) Urine Urobilinogen (Negative) Ur Leukocyte Esterase (Negative) Urine WBC (Auto) (0-5) /hpf Urine RBC (Auto) (0-4) /hpf U Hyaline Cast (Auto) (0-5) /lpf U Epithel Cells (Auto) (0-5) /lpf Urine Bacteria (Auto) (Negative) Adenovirus (PCR) (NotDetected) B. pertussis DNA (PCR) (NotDetected) B.parapertussis DNA PCR (NotDetected) C. pneumoniae DNA (PCR) (NotDetected) Coronavirus OC43 (PCR) (NotDetected) Coronavirus HKU1 (PCR) (NotDetected) Coronavirus 229E (PCR) (NotDetected) COVID-19 Eval Order COVID-19 PCR (NotDetected) Coronavirus NL63 (PCR) (NotDetected) Human Metapneumovir PCR (NotDetected) Influenza Type A (PCR) (NotDetected) Influenza Type B (PCR) (NotDetected) M. pneumoniae (PCR) (NotDetected) Parainfluenza 1 (PCR) (NotDetected) Parainfluenza 2 (PCR) (NotDetected) Parainfluenza 3 (PCR) (NotDetected) Parainfluenza 4 (PCR) (NotDetected) RSV (PCR) (NotDetected) Entero/Rhino (PCR) (NotDetected) 02/05/20 02/05/20 02/05/20 Range/Units 10:37 10:37 10:37 WBC (4.8-10.8) K/uL RBC (4.7-6.1) M/uL Hgb (14.0-18.0) g/dL Hct (42-52) % MCV (80-100) fL MCH (25-34) pg MCHC (32-36) g/dL RDW Std Deviation (36.4-46.3) fL RDW Coeff of Dorian (11.5-14.5) % Plt Count (130-400) K/uL MPV (7.4-10.4) fL Immature Gran % (Auto) % Neut % (Auto) % Lymph % (Auto) % [facility] % (Auto) % Eos % (Auto) % Baso % (Auto) % Neut # (Auto) (1.4-6.5) K/uL Lymph # (Auto) (1.2-3.4) K/uL [facility] # (Auto) (0.11-0.59) K/uL Eos # (Auto) (0-0.5) K/uL Baso # (Auto) (0-0.2) K/uL Immature Gran # (Auto) (0.00-0.02) K/uL ESR 21 H (0-14) mm/hr PT (9.0-12.0) Seconds INR (0.9-1.1) APTT (21.0-31.0) Seconds PTT Ratio VBG pH 7.38 (7.36-7.41) VBG pCO2 44 (38-50) mmHg VBG pO2 24 mmHg VBG HCO3 25 mmol/L VBG O2 Saturation < 60.0 % VBG Base Excess 0 mEq/L Barometric Pressure 732.8 mm/Hg Sodium (136-145) mmol/L Potassium (3.5-5.1) mmol/L Chloride (98-107) mmol/L Carbon Dioxide (21-32) mmol/L Anion Gap (3-11) BUN (7-18) mg/dl Creatinine (0.6-1.4) mg/dl Est Cr Clr Drug Dosing ml/min Est GFR ( Amer) Est GFR (Non-Af Amer) BUN/Creatinine Ratio (10-20) Glucose (70-99) mg/dl POC Glucose (70-99) mg/dl Lactate (0.4-2.0) mmol/L Calcium (8.5-10.1) mg/dl Magnesium (1.8-2.4) mg/dl Total Bilirubin (0.2-1) mg/dl AST (15-37) U/L ALT (12-78) U/L Alkaline Phosphatase (45-117) U/L Total Creatine Kinase (39-308) U/L Troponin I (0-0.045) ng/ml C-Reactive Protein (0-0.29) mg/dl Total Protein (6.4-8.2) gm/dl Albumin (3.4-5.0) gm/dl Globulin (2.5-4.0) gm/dl Albumin/Globulin Ratio (0.9-2) Procalcitonin 0.25 (0-0.5) ng/ml Urine Color Urine Appearance (Clear) Urine pH (4.5-7.5) Ur Specific Brickeys (1.000-1.030) Urine Protein (Negative) Urine Glucose (UA) (Negative) Urine Ketones (Negative) Urine Blood (Negative) Urine Nitrite (Negative) Urine Bilirubin (Negative) Urine Urobilinogen (Negative) Ur Leukocyte Esterase (Negative) Urine WBC (Auto) (0-5) /hpf Urine RBC (Auto) (0-4) /hpf U Hyaline Cast (Auto) (0-5) /lpf U Epithel Cells (Auto) (0-5) /lpf Urine Bacteria (Auto) (Negative) Adenovirus (PCR) (NotDetected) B. pertussis DNA (PCR) (NotDetected) B.parapertussis DNA PCR (NotDetected) C. pneumoniae DNA (PCR) (NotDetected) Coronavirus OC43 (PCR) (NotDetected) Coronavirus HKU1 (PCR) (NotDetected) Coronavirus 229E (PCR) (NotDetected) COVID-19 Eval Order COVID-19 PCR (NotDetected) Coronavirus NL63 (PCR) (NotDetected) Human Metapneumovir PCR (NotDetected) Influenza Type A (PCR) (NotDetected) Influenza Type B (PCR) (NotDetected) M. pneumoniae (PCR) (NotDetected) Parainfluenza 1 (PCR) (NotDetected) Parainfluenza 2 (PCR) (NotDetected) Parainfluenza 3 (PCR) (NotDetected) Parainfluenza 4 (PCR) (NotDetected) RSV (PCR) (NotDetected) Entero/Rhino (PCR) (NotDetected) 02/05/20 02/05/20 02/05/20 Range/Units 13:14 16:35 16:42 WBC (4.8-10.8) K/uL RBC (4.7-6.1) M/uL Hgb (14.0-18.0) g/dL Hct (42-52) % MCV (80-100) fL MCH (25-34) pg MCHC (32-36) g/dL RDW Std Deviation (36.4-46.3) fL RDW Coeff of Dorian (11.5-14.5) % Plt Count (130-400) K/uL MPV (7.4-10.4) fL Immature Gran % (Auto) % Neut % (Auto) % Lymph % (Auto) % [facility] % (Auto) % Eos % (Auto) % Baso % (Auto) % Neut # (Auto) (1.4-6.5) K/uL Lymph # (Auto) (1.2-3.4) K/uL [facility] # (Auto) (0.11-0.59) K/uL Eos # (Auto) (0-0.5) K/uL Baso # (Auto) (0-0.2) K/uL Immature Gran # (Auto) (0.00-0.02) K/uL ESR (0-14) mm/hr PT (9.0-12.0) Seconds INR (0.9-1.1) APTT (21.0-31.0) Seconds PTT Ratio VBG pH (7.36-7.41) VBG pCO2 (38-50) mmHg VBG pO2 mmHg VBG HCO3 mmol/L VBG O2 Saturation % VBG Base Excess mEq/L Barometric Pressure mm/Hg Sodium (136-145) mmol/L Potassium (3.5-5.1) mmol/L Chloride (98-107) mmol/L Carbon Dioxide (21-32) mmol/L Anion Gap (3-11) BUN (7-18) mg/dl Creatinine (0.6-1.4) mg/dl Est Cr Clr Drug Dosing ml/min Est GFR ( Amer) Est GFR (Non-Af Amer) BUN/Creatinine Ratio (10-20) Glucose (70-99) mg/dl POC Glucose 155 H (70-99) mg/dl Lactate 1.8 (0.4-2.0) mmol/L Calcium (8.5-10.1) mg/dl Magnesium (1.8-2.4) mg/dl Total Bilirubin (0.2-1) mg/dl AST (15-37) U/L ALT (12-78) U/L Alkaline Phosphatase (45-117) U/L Total Creatine Kinase (39-308) U/L Troponin I (0-0.045) ng/ml C-Reactive Protein (0-0.29) mg/dl Total Protein (6.4-8.2) gm/dl Albumin (3.4-5.0) gm/dl Globulin (2.5-4.0) gm/dl Albumin/Globulin Ratio (0.9-2) Procalcitonin (0-0.5) ng/ml Urine Color Yellow Urine Appearance Clear (Clear) Urine pH 5.0 (4.5-7.5) Ur Specific Brickeys 1.022 (1.000-1.030) Urine Protein 2+ H (Negative) Urine Glucose (UA) Trace H (Negative) Urine Ketones Trace H (Negative) Urine Blood 2+ H (Negative) Urine Nitrite Negative (Negative) Urine Bilirubin Negative (Negative) Urine Urobilinogen Negative (Negative) Ur Leukocyte Esterase Negative (Negative) Urine WBC (Auto) 1-5 (0-5) /hpf Urine RBC (Auto) 5-10 H (0-4) /hpf U Hyaline Cast (Auto) 5-10 H (0-5) /lpf U Epithel Cells (Auto) 20-30 H (0-5) /lpf Urine Bacteria (Auto) Negative (Negative) Adenovirus (PCR) (NotDetected) B. pertussis DNA (PCR) (NotDetected) B.parapertussis DNA PCR (NotDetected) C. pneumoniae DNA (PCR) (NotDetected) Coronavirus OC43 (PCR) (NotDetected) Coronavirus HKU1 (PCR) (NotDetected) Coronavirus 229E (PCR) (NotDetected) COVID-19 Eval Order COVID-19 PCR (NotDetected) Coronavirus NL63 (PCR) (NotDetected) Human Metapneumovir PCR (NotDetected) Influenza Type A (PCR) (NotDetected) Influenza Type B (PCR) (NotDetected) M. pneumoniae (PCR) (NotDetected) Parainfluenza 1 (PCR) (NotDetected) Parainfluenza 2 (PCR) (NotDetected) Parainfluenza 3 (PCR) (NotDetected) Parainfluenza 4 (PCR) (NotDetected) RSV (PCR) (NotDetected) Entero/Rhino (PCR) (NotDetected) Imaging Data Radiologist's Impression: ABDOMEN AND PELVIS CT WITHOUT CONTRAST CT DOSE: 959.06 mGycm HISTORY: fever urinary incontinence TECHNIQUE: Multiaxial CT images of the abdomen and pelvis were performed without contrast. A dose lowering technique was utilized adhering to the principles of ALARA. COMPARISON STUDY: Abdomen and pelvis CT 03/21/2019. PET scan 10/20/2019. FINDINGS: Stable 6 mm nodule within the right lower lobe on image 5. Faint patchy groundglass nodular densities within the lung bases. This favors a pneumonia. This could be secondary to viral process. No pneumoperitoneum. No pneumatosis. Posterior decompression fusion at L4-S1 with pedicle screws and r ods. No suspicious lytic or blastic osseous lesions. There are poststernotomy changes. Mild circumferential thickening the distal esophagus is again noted. This likely corresponds to the patient's known esophageal mass. The unenhanced liver, spleen, adrenal glands, pancreas, and gallbladder are unremarkable. There are punctate bilateral renal calculi versus vascular calcifications. No hydronephrosis. No ureteral calculi. The prostate gland is mildly enlarged. The bladder is unremarkable. No retroperitoneal lymphadenopathy. Normal caliber aorta demonstrating moderate atherosclerotic plaque. Suboptimal evaluation for bowel pathology due to the lack of intravenous and oral contrast. However, there is no definite bowel wall thickening or obstruction. A few colonic diverticula. No evidence for diverticulitis. The appendix is not identified and reportedly surgically absent. IMPRESSION: 1. Faint patchy groundglass nodular densities within the lung bases. This likely represents a pneumonia and could be secondary to a viral process. 2. Mild circumferential thickening at the distal esophagus is again noted. This likely represents the patient's known esophageal mass. 3. No definite bowel wall thickening or obstruction. 4. Stable 6 mm nodule within the right lower lobe. 5. Additional findings as described above. ACT 112: Negative or not required by law. Electronically signed by: Abhay Richards M.D. 02/05/2020 12:39 PM Dictated: 02/05/20 1221 Transcribed: 02/05/20 1221 MR lumbar spine wo/w con CLINICAL HISTORY: back pain urinary incontinence fever HISTORY OF ESOPHAGEAL C ARCINOMA. LEG WEAKNESS. EVALUATE FOR ABSCESS. TECHNIQUE: Sagittal and axial T1, T2 and STIR images were obtained. Images were acquired before and after the administration of 9 cc of intravenous Gadavist COMPARISON STUDY: CT scan of the abdomen and pelvis dated 02/05/2020 OBSERVATIONS: There are postsurgical changes of discectomies interbody fusions at the L4-5 and L5-S1 levels. There is evidence for spinal fusion with posterior pedicle screw fixation at the L4-L5 and S1 levels. There is mild marrow edema at the L3-4 level which is felt to be on a discogenic basis. There are no areas of marrow replacement to indicate neoplasm or osteomyelitis. L1-2: There is a mild circumferential disc bulge. There is no significant spinal or foraminal stenosis L2-3: There is circumferential disc bulge. There is mild spinal canal narrowing. There is no significant foraminal stenosis L3-4: There is a circumferential disc bulge. There is facet joint ligamentous hypertrophy. There is severe spinal stenosis. There is moderate to severe bilateral foraminal narrowing.. L4-5: There are postsurgical changes of discectomy and posterior laminectomy. There is no significant spinal stenosis. There is no definite foraminal narrowing although evaluation is limited due to artifact from the pedicle screw s. L5-S1: There are postsurgical changes of discectomy and interbody fusion. There is a posterior laminectomy. There is no significant spinal stenosis. There is no definite foraminal narrowing however evaluation is limited due to artifact from the pedicle screws. The conus medullaris and cauda equina appear normal. There are no fluid collections to indicate epidural abscess. IMPRESSION: 1. Study mildly compromised due to metallic artifact from prior spinal decompression and fusion 2. No evidence of discitis or osteomyelitis. 3. No evidence of epidural abscess. 4. Multilevel spondylytic changes with severe spinal stenosis at the L3-4 level. ACT 112: Negative or not required by law. Electronically signed by: James Grissom M.D. 02/05/2020 2:33 PM Dictated: 02/05/20 1426 Transcribed: 02/05/20 1426 XR chest 1V portable CLINICAL HISTORY: SEPSIS COMPARISON STUDY: PET/CT October 20, 2019. Chest CT March 21, 2019. FINDINGS: There are median sternotomy wires and clips from bypass grafting. Mild cardiomegaly is noted. No evidence for pulmonary edema. There is no pneumothorax or pleural effusion. There is no consolidation to suggest pneumonia. IMPRESSION: No acute cardiopulmonary findings. No change in appearance of the chest. ACT 112: Negative or not required by law. Electronically signed by: Nimesh Arora M.D. 02/05/2020 11:17 AM Dictated: 02/05/20 1116 Transcribed: 02/05/20 111 ECG Data Indication: + SOB/dyspnea Rate (beats per minute): 93 Rhythm: + normal sinus ECG ST segments: no Normal ST segments Additional Comments: QRS 128 QTc 571 PVCs present MDM Narrative 0952: The patient was evaluated in room C5. A complete history and physical exam was performed. Cardiac monitoring: An order was placed for continuous cardiac monitoring. The monitor shows a rate of 100 with sinus rhythm Patient was placed in airborne precautions. Full PPE was formed by myself and staff. 1247: Vital signs stable. Patient is stable on room air. Patient is COVID-19 positive. He has an elevated troponin. Patient has a history of elevated troponins. Lactic acid is elevated 2.3. Patient's creatinine is elevated 1.77. MRI called and stated that they would not scan the patient due to them being COVID-19 positive. 1252: Spoke with Lor who said to speak with Dr. Arora regarding getting MRI done. She stated call her at [phone]. 1307: Discussed with Dr. Arora. Given the patient's fever, history of esophageal cancer, history of back surgery by Dr. Miranda, reported back pain, and urinary incontinence both Dr. Arora and I agreed that the patient should receive MRI to rule out cord compression. MRI machine will need to be shut down for 2 hours after scan to cleanse the machine. Both he and I are comfortable with this and feel like it is in the best interest of the patient to perform MRI at this time. 1440: Vital signs stable. MRI negative for cord compression. Given the patient's elevated lactic acid level, acute kidney injury, and COVID-19 positive the patient will be admitted to the hospital service. [facility] hospitalist contacted. 1507: Spoke with Marj Rosa PA-C who stated to admit to Dr. Townsend Impression & Plan COVID-19, Elevated troponin, RHIANNON (acute kidney injury) Discharge Plan Visit Data Chief Complaint: Fever Stated Complaint: SORE THROAT,HASNT EATEN x2 DAYS,DIARRHEA ED Provider: Beltran Lee Discharge Problem: COVID-19, Elevated troponin, RHIANNON (acute kidney injury) Patient Disposition: Admitted As Inpatient Forms Stand Alone Forms: My [facility] Prescriptions Prescriptions: No Action multivitamin Tablet 1 tab PO QAM RF: 0 Lantus U-100 Insulin 100 unit/mL Solution 20 unit SUBCUT QAM RF: 0 lisinopril 20 mg tablet 20 mg PO QAM RF: 0 aspirin 81 mg Tablet,Delayed Release (Dr/Ec) 81 mg PO QAM RF: 0 acetaminophen [Tylenol Extra Strength] 500 mg Tablet 500 - 1,000 mg PO Q6H PRN (Reason: Pain) RF: 0 tamsulosin 0.4 mg capsule 0.4 mg PO QAM RF: 0 metformin 1,000 mg tablet 1,000 mg PO BIDM RF: 0 Novolin R Regular U-100 Insuln 100 unit/mL Solution 1 sliding scale dose SUBCUT USEASDIRECTD RF: 0 gabapentin 300 mg capsule 300 mg PO BID RF: 0 rosuvastatin [Crestor] 20 mg Tablet 20 mg PO QAM RF: 0 metoprolol tartrate 25 mg tablet 25 mg PO BID RF: 0 vitamin E 1,000 unit capsule 1,000 units PO QAM RF: 0 Referrals Referrals: Favian Calero MD [Primary Care Provider] -
[2020-02-05] MEDS: SODIUM CHLORIDE 0.9% 1000ML 1,000 ML IV SCH ×2 (10:42→20:49)
[2020-02-05 10:50] LABS: Basophils # (auto) 0.01 K/uL (0-0.2); Basophils % (auto) 0.1 %; Hematocrit (blood only) 35.2 % (42-52); Hemoglobin 12.1 g/dL (14.0-18.0); Immature Granulocytes # (auto) 0.01 K/uL (0.00-0.02); Immature Granulocytes % (auto) 0.1 %; Mean Corpuscular Hemoglobin 30.7 pg (25-34); Mean Corpuscular Hgb Conc 34.4 g/dL (32-36); Mean Corpuscular Volume 89.3 fL (80-100); Mean Platelet Volume 9.8 fL (7.4-10.4); Monocytes # (auto) 0.65 K/uL (0.11-0.59); Monocytes % (auto) 9.5 %; Neutrophils % (auto) 74.3 %; Platelet Count 149 K/uL (130-400); RDW Coefficient of Variation 12.8 % (11.5-14.5); RDW Standard Deviation 41.3 fL (36.4-46.3); Red Blood Count 3.94 M/uL (4.7-6.1); White Blood Count 6.87 K/uL (4.8-10.8)
[2020-02-05 10:54] LABS: Base Excess VBG 0 mEq/L; HCO3 VBG 25 mmol/L; Oxygen Saturation VBG < 60.0 %; PCO2 VBG 44 mmHg (38-50); PO2 VBG 24 mmHg; pH VBG 7.38 (7.36-7.41)
[2020-02-05 11:04] LABS: Partial Thromboplastin Time 28.2 Seconds (21.0-31.0)
[2020-02-05 11:09] LABS: Albumin Level 3.8 gm/dl (3.4-5.0); BUN Creatinine Ratio 12.6 (10-20); Creatinine Clr Calc Pharmacy 36.1 ml/min; Est GFR (African American) 41.1; Est GFR (Non-African American) 35.5; Magnesium 1.8 mg/dl (1.8-2.4); Potassium 4.1 mmol/L (3.5-5.1)
[2020-02-05 11:14] LABS: Albumin Globulin Ratio 1.1 (0.9-2); Bilirubin,Total 0.5 mg/dl (0.2-1); C Reactive Protein 1.89 mg/dl (0-0.29); Globulin 3.6 gm/dl (2.5-4.0); Total Protein 7.4 gm/dl (6.4-8.2); Troponin I 0.187 ng/ml (0-0.045)
--- NOTE | 2020-02-05 11:19 | XRay Report ---
XR chest 1V portable CLINICAL HISTORY: SEPSIS COMPARISON STUDY: PET/CT October 20, 2019. Chest CT March 21, 2019. FINDINGS: There are median sternotomy wires and clips from bypass grafting. Mild cardiomegaly is note d. No evidence for pulmonary edema. There is no pneumothorax or pleural effusion. There is no consoli dation to suggest pneumonia. IMPRESSION: No acute cardiopulmonary findings. No change in appearance of the chest. ACT 112: Negative or not required by law. Electronically signed by: Nimesh Arora M.D. 02/05/2020 11:17 AM
[2020-02-05 12:01] LABS: Adenovirus PCR Not Detected (NotDetected); Bordetella parapertussis PCR Not Detected (NotDetected); Bordetella pertussis PCR Not Detected (NotDetected); Chlamydia pneumoniae PCR Not Detected (NotDetected); Coronavirus 229E PCR Not Detected (NotDetected); Coronavirus HKU1 PCR Not Detected (NotDetected); Coronavirus NL63 PCR Not Detected (NotDetected); Coronavirus OC43PCR Not Detected (NotDetected); Human Metapneumovirus PCR Not Detected (NotDetected); Influenza A PCR Not Detected (NotDetected); Influenza B PCR Not Detected (NotDetected); Mycoplasma pneumoniae PCR Not Detected (NotDetected); Parainfluenza Virus 1 PCR Not Detected (NotDetected); Parainfluenza Virus 2 PCR Not Detected (NotDetected); Parainfluenza Virus 3 PCR Not Detected (NotDetected); Parainfluenza Virus 4 PCR Not Detected (NotDetected); Respiratory Syncytial VirusPCR Not Detected (NotDetected); Rhinovirus/Enterovirus PCR Not Detected (NotDetected)
[2020-02-05 12:03] LABS: Coronavirus CoV-2 (COVID19)PCR DETECTED (NotDetected)
--- NOTE | 2020-02-05 12:40 | CT Scan Report ---
ABDOMEN AND PELVIS CT WITHOUT CONTRAST CT DOSE: 959.06 mGycm HISTORY: fever urinary incontinence TECHNIQUE: Multiaxial CT images of the abdomen and pelvis were performed without contrast. A dose lo wering technique was utilized adhering to the principles of ALARA. COMPARISON STUDY: Abdomen and pelvis CT 03/21/2019. PET scan 10/20/2019. FINDINGS: Stable 6 mm nodule within the right lower lobe on image 5. Faint patchy groundglass nodular densities within the lung bases. This favors a pneumonia. This could be secondary to viral process. No pneumoperitoneum. No pneumatosis. Posterior decompression fusion at L4-S1 with pedicle screws and rods. No suspicious lytic or blastic osseous lesions. There are poststernotomy changes. Mild circumfe rential thickening the distal esophagus is again noted. This likely corresponds to the patient's know n esophageal mass. The unenhanced liver, spleen, adrenal glands, pancreas, and gallbladder are unrema rkable. There are punctate bilateral renal calculi versus vascular calcifications. No hydronephrosis. No ureteral calculi. The prostate gland is mildly enlarged. The bladder is unremarkable. No retroper itoneal lymphadenopathy. Normal caliber aorta demonstrating moderate atherosclerotic plaque. Suboptim al evaluation for bowel pathology due to the lack of intravenous and oral contrast. However, there is no definite bowel wall thickening or obstruction. A few colonic diverticula. No evidence for diverti culitis. The appendix is not identified and reportedly surgically absent. IMPRESSION: 1. Faint patchy groundglass nodular densities within the lung bases. This likely represents a pneumon ia and could be secondary to a viral process. 2. Mild circumferential thickening at the distal esophagus is again noted. This likely represents the patient's known esophageal mass. 3. No definite bowel wall thickening or obstruction. 4. Stable 6 mm nodule within the right lower lobe. 5. Additional findings as described above. ACT 112: Negative or not required by law. Electronically signed by: Abhay Richards M.D. 02/05/2020 12:39 PM
[2020-02-05] MEDS ORDERED: MoRPHine SULFATE 4 MG/ML 1 ML CARP\\VIAL IV STA (13:08)
[2020-02-05] MEDS ORDERED: MoRPHine SULFATE 2 MG/ML CARP ONE (13:40)
[2020-02-05] MEDS ORDERED: GADOBUTROL 65ML VIAL IV ONE (14:21)
--- NOTE | 2020-02-05 14:35 | Magnetic Resonance Report ---
MR lumbar spine wo/w con CLINICAL HISTORY: back pain urinary incontinence fever HISTORY OF ESOPHAGEAL CARCINOMA. LEG WEAKNESS. EVALUATE FOR ABSCESS. TECHNIQUE: Sagittal and axial T1, T2 and STIR images were obtained. Images were acquired before and a fter the administration of 9 cc of intravenous Gadavist COMPARISON STUDY: CT scan of the abdomen and pelvis dated 02/05/2020 OBSERVATIONS: There are postsurgical changes of discectomies interbody fusions at the L4-5 and L5-S1 levels. There is evidence for spinal fusion with posterior pedicle screw fixation at the L4-L5 and S1 levels. There is mild marrow edema at the L3-4 level which is felt to be on a discogenic basis. There are no areas of marrow replacement to indicate neoplasm or osteomyelitis. L1-2: There is a mild circumferential disc bulge. There is no significant spinal or foraminal stenosi s L2-3: There is circumferential disc bulge. There is mild spinal canal narrowing. There is no signific ant foraminal stenosis L3-4: There is a circumferential disc bulge. There is facet joint ligamentous hypertrophy. There is s evere spinal stenosis. There is moderate to severe bilateral foraminal narrowing.. L4-5: There are postsurgical changes of discectomy and posterior laminectomy. There is no significant spinal stenosis. There is no definite foraminal narrowing although evaluation is limited due to deejay fact from the pedicle screws. L5-S1: There are postsurgical changes of discectomy and interbody fusion. There is a posterior zen ctomy. There is no significant spinal stenosis. There is no definite foraminal narrowing however eval uation is limited due to artifact from the pedicle screws. The conus medullaris and cauda equina appear normal. There are no fluid collections to indicate epidural abscess. IMPRESSION: 1. Study mildly compromised due to metallic artifact from prior spinal decompression and fusion 2. No evidence of discitis or osteomyelitis. 3. No evidence of epidural abscess. 4. Multilevel spondylytic changes with severe spinal stenosis at the L3-4 level. ACT 112: Negative or not required by law. Electronically signed by: James Grissom M.D. 02/05/2020 2:33 PM
[2020-02-05 17:00] LABS: Appearance Urine Clear (Clear); Bacteria Urine Automated Negative (Negative); Bilirubin Urine Negative (Negative); Blood Urine 2+ (Negative); Color Urine Yellow; Epithelial Cell Urine Auto 20-30 /lpf (0-5); Glucose Urine UA Trace (Negative); Ketones Urine Trace (Negative); Leukocyte Esterase Urine Negative (Negative); Nitrite Urine Negative (Negative); Protein Urine 2+ (Negative); Specific Gravity Urine 1.022 (1.000-1.030); Urobilinogen Urine Negative (Negative)
[2020-02-05] MEDS ORDERED: GLUCOSE 10 TABS/TUBE PO PRN (19:12)
[2020-02-05] MEDS ORDERED: ALUMINUM/MAGNESIUM SUSP 18 ML, LIDOCAINE HCL VISCOUS 2% 6 ML, BARCODE IDENTIFIER 1 EA PO ONE (19:12)
[2020-02-05] MEDS ORDERED: CHLORASEPTIC 1.4% SOLN 180 ML BTL MT PRN (19:12)
[2020-02-05] MEDS ORDERED: DEXTROSE 50% 50 ML SYRINGE IV PRN (19:12)
[2020-02-05] MEDS ORDERED: GLUCOSE 40% GEL 15 GM TUBE PO PRN (19:12)
[2020-02-05] MEDS ORDERED: GLUCAGON FOR INJ 1 MG VIAL SQ PRN (19:12)
[2020-02-05] MEDS ORDERED: CARBOHYDRATES FOR HYPOGLYCEMIA PO PRN (19:12)
[2020-02-05] MEDS ORDERED: NITROGLYCERIN SL 0.4 MG/TAB TAB SL PRN (19:12)
[2020-02-05] MEDS ORDERED: MoRPHine SULFATE 2 MG/ML CARP IV PRN (19:12)
--- NOTE | 2020-02-05 19:35 | History & Physical Report ---
Date of Service February 05, 2020 Assessment & Plan (1) Sepsis: Borderline but meets criteria, likely COVID infection vs AOM. Pt currently febrile with chills. Has some evidence of viral pneumonia on imaging. Will cover with Rocephin and Doxycycline which covers AOM and pneumonia and con t IVF overnight. Lactate is normal and he is resuscitated. Cont to monitor on telemetry. (2) COVID-19: no oxygen requirement. Pt had some recent diarrhea which has resolved, and he is now tolerating solid food. Diarrhea likely 2/2 COVID infection. No concern on abdominal exam. (3) Pneumonia: likely viral 2/2 COVID with negative procalcitonin. However, with noted ground glass opacities in setting of sepsis, will add doxycycline to complete a course of abx for CAP, also. There is no increased work of breathing or hypoxia at this time. Hydrate and continue to reassess clinically. If oxygen need arises overnight, would reimage with a CXR. (4) Acute otitis media: effusion with ?purulence bilaterally. Ceftriaxone for coverage. Sudafed for decongestant, GI cocktail and PRN chloraseptic for symptom management. (5) Back pain: Patient is a history of severe spinal stenosis and back surgery several years ago. He has had chronic lower back pain since that surgery but now reports acute lower back pain in the last 2 weeks which is affecting his gait and strength when going from sitting to standing positions. There is no clear neurologic deficit on my cursory exam today in the ER. His L-spine MRI did not show acute cord compression or other evidence of acute infectious etiology or metastatic cancer. However, there is severe spinal stenosis and pathology at the L3-L4 level which matches the dermatomes effected in the thigh. We will plan to have PT and OT evaluate him for safety to return home and consult orthospine for recommendations. Continue pain medications and other palliative efforts at this time. (6) Elevated troponin: Demand ischemia is most likely in setting of sepsis with COVID infection. He denies symptoms of chest pain or ACS, EKG is unchanged. Will trend troponin overnight looking for a flat trend and no rise. If velocity increases, would consider a heparin drip and treatment for an NSTEMI. No echo available at this time. Would consider cardiology consult at that point. For now continue monitoring on telemetry. (7) RHIANNON (acute kidney injury): Likely related to recent diarrhea in setting of sepsis. Resuscitated in ER and continue IVF overnight. Repeat BMP in am. There is a benefit to continuing the ACEI as a MINDY shree in this virus, so although we are holding temporarily, will add this back when RHIANNON resolves, hopefully in am. (8) S/P CABG (coronary artery bypass graft): Cont medical management per home regimen including ASA, ACEI and Crestor. No BB in setting of sotalol use. 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 He completed neoadjuvant combined chemotherapy with weekly paclitaxel carboplatin x6 cycles and radiation treatment of x28 in [place] he declined surgical intervention. Follow-up upper GI endoscopy showed no residual carcinoma in October 2019. Currently off treatment and followed with observation since July [address] Cosme Hernandez. (10) Paroxysmal atrial fibrillation: Sees Dr. Clayton regularly. He is currently in sinus rhythm. Cont home sotalol, monitor QTC on daily EKG. Pt refused AC in the past. (11) Diabetes mellitus, type 2: Basal bolus insulin while admitted. A1C pending in am. (12) DVT prophylaxis: Heparin DNR per discussion with patient and his daughter on admission Dispo-likely will be here through the weekend pending clinical improvement on therapy. Nikki Townsend DO [facility] Hospitalist History of Present Illness Chief Complaint: multiple issues-sore throat and lower back pain, +fever Primary Care Provider: Favian Calero MD The patient is an 79-year-old man with a history of paroxysmal atrial fibrillation, type 2 diabetes mellitus, coronary artery disease status post CABG, and a history of esophageal cancer reported to be in remission who presents with a significant sore throat, runny nose and decongestion, recent diarrhea over the last 1 to 2 days that the patient reports has now resolved, fever and chills, and acute on chronic lower back pain with associated leg weakness. He specifically reports having some difficulties rising from a chair in the last couple of weeks. He has no saddle anesthesia and an MRI performed of the lower spine in the ER with and without contrast revealed postsurgical changes of discectomy and posterior laminectomy in the lower lumbar area with multilevel spondylitic changes and severe spinal stenosis noted at the L3-L4 level. The conus medullaris and cauda equina appear normal and there is no evidence of discitis, osteomyelitis, epidural abscess. The patient denied shortness of breath, cough (although he is now having productive cough of whitish phlegm which he feels is related to postnasal drip), chest pain, abdominal pain, bleeding issues. He is tolerating p.o. and denies nausea but is not excited about food. He is currently febrile with chills, however. Brother from [place] and had COVID and recently visited last week. His other brother is COVID positive who is from a retirement. The patient likely developed symptoms on Sunday of this week, approximately 3 to 4 days ago. Some of the history and medicine reconciliation was performed with the daughter over the phone at the patient's request. His main concern is his severe sore throat and palliation of his lower back pain. He does have a slightly elevated troponin, but denies symptoms of ACS and has no EKG changes and this is in the setting of borderline sepsis. This is likely a demand ischemia in the setting of known CAD as opposed to ACS, however will place on telemetry and trend troponins overnight. Allergies Allergy/AdvReac Type Severity Reaction Status Date / Time No Known Allergies Allergy Verified 02/05/20 10:46 Home Medications Home Medications Medication Instructions Recorded Confirmed Type Lantus U-100 Insulin 20 unit SUBCUT QAM 09/22/18 02/05/20 History Novolin R Regular U-100 Insuln 1 sliding scale dose SUBCUT 09/22/18 02/05/20 History USEASDIRECTD acetaminophen [Tylenol Extra 500 - 1,000 mg PO Q6H PRN 09/22/18 02/05/20 History Strength] aspirin 81 mg PO QAM 09/22/18 02/05/20 History gabapentin 300 mg PO BID 09/22/18 02/05/20 History lisinopril 20 mg PO QAM 09/22/18 02/05/20 History metformin 1,000 mg PO BIDM 09/22/18 02/05/20 History multivitamin 1 tab PO QAM 09/22/18 02/05/20 History rosuvastatin [Crestor] 20 mg PO QAM 09/22/18 02/05/20 History tamsulosin 0.4 mg PO QAM 09/22/18 02/05/20 History omeprazole 20 mg PO DAILY 02/05/20 02/05/20 History sotalol 40 mg PO BID 02/05/20 02/05/20 History Past Med/Surg History Medical History Back pain Diabetes mellitus, type 2 IDDM Diabetic neuropathy Enlarged prostate Esophageal cancer History of atrial fibrillation History of cardioversion Hyperlipidemia Hypertension Myocardial Infarction 8 YEARS AGO Paroxysmal atrial fibrillation Regurgitation of food Surgical History H/O eye surgery RT/LEFT LASER SURGERY FOR RETINA BREATHING History of appendectomy History of bronchoscopy History of cardiac cath 8 YEARS AGO AT [facility] History of colonoscopy History of esophagogastroduodenoscopy (EGD) History of tooth extraction Lipoma REMOVED FROM BACK Pilonidal cyst EXCISION Previous back surgery S/P CABG (coronary artery bypass graft) 8 YEARS AGO ([facility]) REPAIRED 3 VESSELS Family History Mother , age 80 Stroke Father , age 82 Cancer not sure kind of cancer Brother Coronary heart disease Crohn's disease Diabetes Brother Coronary heart disease Lung cancer Brother No problems noted. Brother No problems noted. Brother , age 16 Accident from a ruptured spleen when playing baseball Brother , age 86 Cancer not sure what kind Sister Alzheimer disease Sister No problems noted. Sister , age 41 Brainstem hemorrhage after surgery Sister , age 69 Diabetes Complications from DM Son No problems noted. Son No problems noted. Daughter No problems noted. 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[place] [employer] / also worked at a [employer] Other Information That Helps Us Care for You: No Feels Safe at Home: Yes Safety Concerns: Feels Safe At This Time Childhood Exposure to Second-Hand Smoke: Yes Assistive Devices: Cane Review of Systems Review of Systems: All systems reviewed & are unremarkable except as noted in HPI & below Physical Exam Physical Exam: CONSTITUTIONAL: WNWD, vitals as above, generally ill-appearing EYES: EOMI bilaterally, PERRL, normal conjunctivae, no scleral icterus ENT: external ear and nose normal, oropharynx clear and not erythematous without exudates or enlarged tonsils. bilateral purulent effusions behind tympanic membrane without erythema or drainage present. TMs are reflective of light. No maxillary or ethmoid sinus tenderness NECK: trachea midline, no lymphadenopathy RESPIRATORY: clear to auscultation bilaterally, no crackles, rales or wheezes, normal respiratory effort CARDIOVASCULAR: regular rate and rhythm, S1 and 2 heard without murmurs, gallops or rubs, no JVD, no peripheral edema, heart sounds are distant and difficult to auscultate CHEST: inspection of chest was normal GASTROINTESTINAL: soft, protuberant, nontender, no guarding MUSCULOSKELETAL: strength 5/5 throughout, head is normocephalic and atraumatic, neck supple, normal palpation of chest wall without tenderness SKIN: warm and dry NEUROLOGIC: patellar DTRs could not elicit. BR 2+ bilat. PERRL, EOMI, no facial palsy, no dysarthria. CN 2-12 grossly intact, no sensory deficit, normal cognition, normal speech, no tremor. Gait was not assessed as he is a fall risk. PSYCHIATRIC: alert cooperative and oriented to person, place and time. Results & Data Results & Data ([facility]) Vital Signs (Past 12 Hours) Vital Signs Temp Pulse Resp BP Pulse Ox 02/05/20 14:49 23 95 02/05/20 14:45 80 18 117/64 96 02/05/20 13:30 23 123/64 95 02/05/20 13:00 38.2 C H 82 23 137/50 L 95 02/05/20 12:54 81 17 119/54 L 94 02/05/20 12:30 80 23 89/49 L 94 02/05/20 12:09 94 02/05/20 12:00 84 10 L 115/58 L 94 02/05/20 11:30 85 30 H 141/75 H 92 02/05/20 11:00 92 H 21 165/78 H 02/05/20 10:51 97 H 22 95 02/05/20 10:38 91 H 20 178/82 H 95 02/05/20 09:51 38.1 C H 97 H 22 176/89 H 95 Laboratory Results Short CBC 02/05/20 02/05/20 02/05/20 Range/Units 10:35 10:35 10:37 WBC 6.87 (4.8-10.8) K/uL RBC 3.94 L (4.7-6.1) M/uL Hgb 12.1 L (14.0-18.0) g/dL Hct 35.2 L (42-52) % MCV 89.3 (80-100) fL MCH 30.7 (25-34) pg MCHC 34.4 (32-36) g/dL RDW Std Deviation 41.3 (36.4-46.3) fL RDW Coeff of Dorian 12.8 (11.5-14.5) % Plt Count 149 (130-400) K/uL MPV 9.8 (7.4-10.4) fL Immature Gran % (Auto) 0.1 % Neut % (Auto) 74.3 % Lymph % (Auto) 16.0 % [place] % (Auto) 9.5 % Eos % (Auto) 0.0 % Baso % (Auto) 0.1 % Neut # (Auto) 5.10 (1.4-6.5) K/uL Lymph # (Auto) 1.10 L (1.2-3.4) K/uL [place] # (Auto) 0.65 H (0.11-0.59) K/uL Eos # (Auto) 0.00 (0-0.5) K/uL Baso # (Auto) 0.01 (0-0.2) K/uL Immature Gran # (Auto) 0.01 (0.00-0.02) K/uL ESR (0-14) mm/hr PT (9.0-12.0) Seconds INR (0.9-1.1) APTT (21.0-31.0) Seconds PTT Ratio VBG pH (7.36-7.41) VBG pCO2 (38-50) mmHg VBG pO2 mmHg VBG HCO3 mmol/L VBG O2 Saturation % VBG Base Excess mEq/L Barometric Pressure mm/Hg Sodium (136-145) mmol/L Potassium (3.5-5.1) mmol/L Chloride (98-107) mmol/L Carbon Dioxide (21-32) mmol/L Anion Gap (3-11) BUN (7-18) mg/dl Creatinine (0.6-1.4) mg/dl Est Cr Clr Drug Dosing ml/min Est GFR ( Amer) Est GFR (Non-Af Amer) BUN/Creatinine Ratio (10-20) Glucose (70-99) mg/dl POC Glucose (70-99) mg/dl Lactate (0.4-2.0) mmol/L Calcium (8.5-10.1) mg/dl Magnesium (1.8-2.4) mg/dl Total Bilirubin (0.2-1) mg/dl AST (15-37) U/L ALT (12-78) U/L Alkaline Phosphatase (45-117) U/L Total Creatine Kinase (39-308) U/L Troponin I (0-0.045) ng/ml C-Reactive Protein (0-0.29) mg/dl Total Protein (6.4-8.2) gm/dl Albumin (3.4-5.0) gm/dl Globulin (2.5-4.0) gm/dl Albumin/Globulin Ratio (0.9-2) Procalcitonin (0-0.5) ng/ml Urine Color Urine Appearance (Clear) Urine pH (4.5-7.5) Ur Specific [place] (1.000-1.030) Urine Protein (Negative) Urine Glucose (UA) (Negative) Urine Ketones (Negative) Urine Blood (Negative) Urine Nitrite (Negative) Urine Bilirubin (Negative) Urine Urobilinogen (Negative) Ur Leukocyte Esterase (Negative) Urine WBC (Auto) (0-5) /hpf Urine RBC (Auto) (0-4) /hpf U Hyaline Cast (Auto) (0-5) /lpf U Epithel Cells (Auto) (0-5) /lpf Urine Bacteria (Auto) (Negative) Adenovirus (PCR) Not Detected (NotDetected) B. pertussis DNA (PCR) Not Detected (NotDetected) B.parapertussis DNA PCR Not Detected (NotDetected) C. pneumoniae DNA (PCR) Not Detected (NotDetected) Coronavirus OC43 (PCR) Not Detected (NotDetected) Coronavirus HKU1 (PCR) Not Detected (NotDetected) Coronavirus 229E (PCR) Not Detected (NotDetected) COVID-19 Eval Order Dup asRespPanOrdered COVID-19 PCR DETECTED A* (NotDetected) Coronavirus NL63 (PCR) Not Detected (NotDetected) Human Metapneumovir PCR Not Detected (NotDetected) Influenza Type A (PCR) Not Detected (NotDetected) Influenza Type B (PCR) Not Detected (NotDetected) M. pneumoniae (PCR) Not Detected (NotDetected) Parainfluenza 1 (PCR) Not Detected (NotDetected) Parainfluenza 2 (PCR) Not Detected (NotDetected) Parainfluenza 3 (PCR) Not Detected (NotDetected) Parainfluenza 4 (PCR) Not Detected (NotDetected) RSV (PCR) Not Detected (NotDetected) Entero/Rhino (PCR) Not Detected (NotDetected) 02/05/20 02/05/20 02/05/20 Range/Units 10:37 10:37 10:37 WBC (4.8-10.8) K/uL RBC (4.7-6.1) M/uL Hgb (14.0-18.0) g/dL Hct (42-52) % MCV (80-100) fL MCH (25-34) pg MCHC (32-36) g/dL RDW Std Deviation (36.4-46.3) fL RDW Coeff of Dorian (11.5-14.5) % Plt Count (130-400) K/uL MPV (7.4-10.4) fL Immature Gran % (Auto) % Neut % (Auto) % Lymph % (Auto) % [place] % (Auto) % Eos % (Auto) % Baso % (Auto) % Neut # (Auto) (1.4-6.5) K/uL Lymph # (Auto) (1.2-3.4) K/uL [place] # (Auto) (0.11-0.59) K/uL Eos # (Auto) (0-0.5) K/uL Baso # (Auto) (0-0.2) K/uL Immature Gran # (Auto) (0.00-0.02) K/uL ESR (0-14) mm/hr PT 11.0 (9.0-12.0) Seconds INR 1.0 (0.9-1.1) APTT 28.2 (21.0-31.0) Seconds PTT Ratio 1.0 VBG pH (7.36-7.41) VBG pCO2 (38-50) mmHg VBG pO2 mmHg VBG HCO3 mmol/L VBG O2 Saturation % VBG Base Excess mEq/L Barometric Pressure mm/Hg Sodium 134 L (136-145) mmol/L Potassium 4.1 (3.5-5.1) mmol/L Chloride 99 (98-107) mmol/L Carbon Dioxide 28 (21-32) mmol/L Anion Gap 7.0 (3-11) BUN 22 H (7-18) mg/dl Creatinine 1.77 H (0.6-1.4) mg/dl Est Cr Clr Drug Dosing 36.1 ml/min Est GFR ( Amer) 41.1 Est GFR (Non-Af Amer) 35.5 BUN/Creatinine Ratio 12.6 (10-20) Glucose 219 H (70-99) mg/dl POC Glucose (70-99) mg/dl Lactate 2.3 H* (0.4-2.0) mmol/L Calcium 9.0 (8.5-10.1) mg/dl Magnesium 1.8 (1.8-2.4) mg/dl Total Bilirubin 0.5 (0.2-1) mg/dl AST 39 H (15-37) U/L ALT 40 (12-78) U/L Alkaline Phosphatase 70 (45-117) U/L Total Creatine Kinase 202 (39-308) U/L Troponin I 0.187 H* (0-0.045) ng/ml C-Reactive Protein 1.89 H (0-0.29) mg/dl Total Protein 7.4 (6.4-8.2) gm/dl Albumin 3.8 (3.4-5.0) gm/dl Globulin 3.6 (2.5-4.0) gm/dl Albumin/Globulin Ratio 1.1 (0.9-2) Procalcitonin (0-0.5) ng/ml Urine Color Urine Appearance (Clear) Urine pH (4.5-7.5) Ur Specific [place] (1.000-1.030) Urine Protein (Negative) Urine Glucose (UA) (Negative) Urine Ketones (Negative) Urine Blood (Negative) Urine Nitrite (Negative) Urine Bilirubin (Negative) Urine Urobilinogen (Negative) Ur Leukocyte Esterase (Negative) Urine WBC (Auto) (0-5) /hpf Urine RBC (Auto) (0-4) /hpf U Hyaline Cast (Auto) (0-5) /lpf U Epithel Cells (Auto) (0-5) /lpf Urine Bacteria (Auto) (Negative) Adenovirus (PCR) (NotDetected) B. pertussis DNA (PCR) (NotDetected) B.parapertussis DNA PCR (NotDetected) C. pneumoniae DNA (PCR) (NotDetected) Coronavirus OC43 (PCR) (NotDetected) Coronavirus HKU1 (PCR) (NotDetected) Coronavirus 229E (PCR) (NotDetected) COVID-19 Eval Order COVID-19 PCR (NotDetected) Coronavirus NL63 (PCR) (NotDetected) Human Metapneumovir PCR (NotDetected) Influenza Type A (PCR) (NotDetected) Influenza Type B (PCR) (NotDetected) M. pneumoniae (PCR) (NotDetected) Parainfluenza 1 (PCR) (NotDetected) Parainfluenza 2 (PCR) (NotDetected) Parainfluenza 3 (PCR) (NotDetected) Parainfluenza 4 (PCR) (NotDetected) RSV (PCR) (NotDetected) Entero/Rhino (PCR) (NotDetected) 02/05/20 02/05/20 02/05/20 Range/Units 10:37 10:37 10:37 WBC (4.8-10.8) K/uL RBC (4.7-6.1) M/uL Hgb (14.0-18.0) g/dL Hct (42-52) % MCV (80-100) fL MCH (25-34) pg MCHC (32-36) g/dL RDW Std Deviation (36.4-46.3) fL RDW Coeff of Dorian (11.5-14.5) % Plt Count (130-400) K/uL MPV (7.4-10.4) fL Immature Gran % (Auto) % Neut % (Auto) % Lymph % (Auto) % [place] % (Auto) % Eos % (Auto) % Baso % (Auto) % Neut # (Auto) (1.4-6.5) K/uL Lymph # (Auto) (1.2-3.4) K/uL [place] # (Auto) (0.11-0.59) K/uL Eos # (Auto) (0-0.5) K/uL Baso # (Auto) (0-0.2) K/uL Immature Gran # (Auto) (0.00-0.02) K/uL ESR 21 H (0-14) mm/hr PT (9.0-12.0) Seconds INR (0.9-1.1) APTT (21.0-31.0) Seconds PTT Ratio VBG pH 7.38 (7.36-7.41) VBG pCO2 44 (38-50) mmHg VBG pO2 24 mmHg VBG HCO3 25 mmol/L VBG O2 Saturation < 60.0 % VBG Base Excess 0 mEq/L Barometric Pressure 732.8 mm/Hg Sodium (136-145) mmol/L Potassium (3.5-5.1) mmol/L Chloride (98-107) mmol/L Carbon Dioxide (21-32) mmol/L Anion Gap (3-11) BUN (7-18) mg/dl Creatinine (0.6-1.4) mg/dl Est Cr Clr Drug Dosing ml/min Est GFR ( Amer) Est GFR (Non-Af Amer) BUN/Creatinine Ratio (10-20) Glucose (70-99) mg/dl POC Glucose (70-99) mg/dl Lactate (0.4-2.0) mmol/L Calcium (8.5-10.1) mg/dl Magnesium (1.8-2.4) mg/dl Total Bilirubin (0.2-1) mg/dl AST (15-37) U/L ALT (12-78) U/L Alkaline Phosphatase (45-117) U/L Total Creatine Kinase (39-308) U/L Troponin I (0-0.045) ng/ml C-Reactive Protein (0-0.29) mg/dl Total Protein (6.4-8.2) gm/dl Albumin (3.4-5.0) gm/dl Globulin (2.5-4.0) gm/dl Albumin/Globulin Ratio (0.9-2) Procalcitonin 0.25 (0-0.5) ng/ml Urine Color Urine Appearance (Clear) Urine pH (4.5-7.5) Ur Specific [place] (1.000-1.030) Urine Protein (Negative) Urine Glucose (UA) (Negative) Urine Ketones (Negative) Urine Blood (Negative) Urine Nitrite (Negative) Urine Bilirubin (Negative) Urine Urobilinogen (Negative) Ur Leukocyte Esterase (Negative) Urine WBC (Auto) (0-5) /hpf Urine RBC (Auto) (0-4) /hpf U Hyaline Cast (Auto) (0-5) /lpf U Epithel Cells (Auto) (0-5) /lpf Urine Bacteria (Auto) (Negative) Adenovirus (PCR) (NotDetected) B. pertussis DNA (PCR) (NotDetected) B.parapertussis DNA PCR (NotDetected) C. pneumoniae DNA (PCR) (NotDetected) Coronavirus OC43 (PCR) (NotDetected) Coronavirus HKU1 (PCR) (NotDetected) Coronavirus 229E (PCR) (NotDetected) COVID-19 Eval Order COVID-19 PCR (NotDetected) Coronavirus NL63 (PCR) (NotDetected) Human Metapneumovir PCR (NotDetected) Influenza Type A (PCR) (NotDetected) Influenza Type B (PCR) (NotDetected) M. pneumoniae (PCR) (NotDetected) Parainfluenza 1 (PCR) (NotDetected) Parainfluenza 2 (PCR) (NotDetected) Parainfluenza 3 (PCR) (NotDetected) Parainfluenza 4 (PCR) (NotDetected) RSV (PCR) (NotDetected) Entero/Rhino (PCR) (NotDetected) 02/05/20 02/05/20 02/05/20 Range/Units 13:14 16:35 16:42 WBC (4.8-10.8) K/uL RBC (4.7-6.1) M/uL Hgb (14.0-18.0) g/dL Hct (42-52) % MCV (80-100) fL MCH (25-34) pg MCHC (32-36) g/dL RDW Std Deviation (36.4-46.3) fL RDW Coeff of Dorian (11.5-14.5) % Plt Count (130-400) K/uL MPV (7.4-10.4) fL Immature Gran % (Auto) % Neut % (Auto) % Lymph % (Auto) % [place] % (Auto) % Eos % (Auto) % Baso % (Auto) % Neut # (Auto) (1.4-6.5) K/uL Lymph # (Auto) (1.2-3.4) K/uL [place] # (Auto) (0.11-0.59) K/uL Eos # (Auto) (0-0.5) K/uL Baso # (Auto) (0-0.2) K/uL Immature Gran # (Auto) (0.00-0.02) K/uL ESR (0-14) mm/hr PT (9.0-12.0) Seconds INR (0.9-1.1) APTT (21.0-31.0) Seconds PTT Ratio VBG pH (7.36-7.41) VBG pCO2 (38-50) mmHg VBG pO2 mmHg VBG HCO3 mmol/L VBG O2 Saturation % VBG Base Excess mEq/L Barometric Pressure mm/Hg Sodium (136-145) mmol/L Potassium (3.5-5.1) mmol/L Chloride (98-107) mmol/L Carbon Dioxide (21-32) mmol/L Anion Gap (3-11) BUN (7-18) mg/dl Creatinine (0.6-1.4) mg/dl Est Cr Clr Drug Dosing ml/min Est GFR ( Amer) Est GFR (Non-Af Amer) BUN/Creatinine Ratio (10-20) Glucose (70-99) mg/dl POC Glucose 155 H (70-99) mg/dl Lactate 1.8 (0.4-2.0) mmol/L Calcium (8.5-10.1) mg/dl Magnesium (1.8-2.4) mg/dl Total Bilirubin (0.2-1) mg/dl AST (15-37) U/L ALT (12-78) U/L Alkaline Phosphatase (45-117) U/L Total Creatine Kinase (39-308) U/L Troponin I (0-0.045) ng/ml C-Reactive Protein (0-0.29) mg/dl Total Protein (6.4-8.2) gm/dl Albumin (3.4-5.0) gm/dl Globulin (2.5-4.0) gm/dl Albumin/Globulin Ratio (0.9-2) Procalcitonin (0-0.5) ng/ml Urine Color Yellow Urine Appearance Clear (Clear) Urine pH 5.0 (4.5-7.5) Ur Specific [place] 1.022 (1.000-1.030) Urine Protein 2+ H (Negative) Urine Glucose (UA) Trace H (Negative) Urine Ketones Trace H (Negative) Urine Blood 2+ H (Negative) Urine Nitrite Negative (Negative) Urine Bilirubin Negative (Negative) Urine Urobilinogen Negative (Negative) Ur Leukocyte Esterase Negative (Negative) Urine WBC (Auto) 1-5 (0-5) /hpf Urine RBC (Auto) 5-10 H (0-4) /hpf U Hyaline Cast (Auto) 5-10 H (0-5) /lpf U Epithel Cells (Auto) 20-30 H (0-5) /lpf Urine Bacteria (Auto) Negative (Negative) Adenovirus (PCR) (NotDetected) B. pertussis DNA (PCR) (NotDetected) B.parapertussis DNA PCR (NotDetected) C. pneumoniae DNA (PCR) (NotDetected) Coronavirus OC43 (PCR) (NotDetected) Coronavirus HKU1 (PCR) (NotDetected) Coronavirus 229E (PCR) (NotDetected) COVID-19 Eval Order COVID-19 PCR (NotDetected) Coronavirus NL63 (PCR) (NotDetected) Human Metapneumovir PCR (NotDetected) Influenza Type A (PCR) (NotDetected) Influenza Type B (PCR) (NotDetected) M. pneumoniae (PCR) (NotDetected) Parainfluenza 1 (PCR) (NotDetected) Parainfluenza 2 (PCR) (NotDetected) Parainfluenza 3 (PCR) (NotDetected) Parainfluenza 4 (PCR) (NotDetected) RSV (PCR) (NotDetected) Entero/Rhino (PCR) (NotDetected) 02/05/20 Range/Units 19:50 WBC (4.8-10.8) K/uL RBC (4.7-6.1) M/uL Hgb (14.0-18.0) g/dL Hct (42-52) % MCV (80-100) fL MCH (25-34) pg MCHC (32-36) g/dL RDW Std Deviation (36.4-46.3) fL RDW Coeff of Dorian (11.5-14.5) % Plt Count (130-400) K/uL MPV (7.4-10.4) fL Immature Gran % (Auto) % Neut % (Auto) % Lymph % (Auto) % [place] % (Auto) % Eos % (Auto) % Baso % (Auto) % Neut # (Auto) (1.4-6.5) K/uL Lymph # (Auto) (1.2-3.4) K/uL [place] # (Auto) (0.11-0.59) K/uL Eos # (Auto) (0-0.5) K/uL Baso # (Auto) (0-0.2) K/uL Immature Gran # (Auto) (0.00-0.02) K/uL ESR (0-14) mm/hr PT (9.0-12.0) Seconds INR (0.9-1.1) APTT (21.0-31.0) Seconds PTT Ratio VBG pH (7.36-7.41) VBG pCO2 (38-50) mmHg VBG pO2 mmHg VBG HCO3 mmol/L VBG O2 Saturation % VBG Base Excess mEq/L Barometric Pressure mm/Hg Sodium (136-145) mmol/L Potassium (3.5-5.1) mmol/L Chloride (98-107) mmol/L Carbon Dioxide (21-32) mmol/L Anion Gap (3-11) BUN (7-18) mg/dl Creatinine (0.6-1.4) mg/dl Est Cr Clr Drug Dosing ml/min Est GFR ( Amer) Est GFR (Non-Af Amer) BUN/Creatinine Ratio (10-20) Glucose (70-99) mg/dl POC Glucose (70-99) mg/dl Lactate (0.4-2.0) mmol/L Calcium (8.5-10.1) mg/dl Magnesium (1.8-2.4) mg/dl Total Bilirubin (0.2-1) mg/dl AST (15-37) U/L ALT (12-78) U/L Alkaline Phosphatase (45-117) U/L Total Creatine Kinase (39-308) U/L Troponin I 0.144 H* (0-0.045) ng/ml C-Reactive Protein (0-0.29) mg/dl Total Protein (6.4-8.2) gm/dl Albumin (3.4-5.0) gm/dl Globulin (2.5-4.0) gm/dl Albumin/Globulin Ratio (0.9-2) Procalcitonin (0-0.5) ng/ml Urine Color Urine Appearance (Clear) Urine pH (4.5-7.5) Ur Specific [place] (1.000-1.030) Urine Protein (Negative) Urine Glucose (UA) (Negative) Urine Ketones (Negative) Urine Blood (Negative) Urine Nitrite (Negative) Urine Bilirubin (Negative) Urine Urobilinogen (Negative) Ur Leukocyte Esterase (Negative) Urine WBC (Auto) (0-5) /hpf Urine RBC (Auto) (0-4) /hpf U Hyaline Cast (Auto) (0-5) /lpf U Epithel Cells (Auto) (0-5) /lpf Urine Bacteria (Auto) (Negative) Adenovirus (PCR) (NotDetected) B. pertussis DNA (PCR) (NotDetected) B.parapertussis DNA PCR (NotDetected) C. pneumoniae DNA (PCR) (NotDetected) Coronavirus OC43 (PCR) (NotDetected) Coronavirus HKU1 (PCR) (NotDetected) Coronavirus 229E (PCR) (NotDetected) COVID-19 Eval Order COVID-19 PCR (NotDetected) Coronavirus NL63 (PCR) (NotDetected) Human Metapneumovir PCR (NotDetected) Influenza Type A (PCR) (NotDetected) Influenza Type B (PCR) (NotDetected) M. pneumoniae (PCR) (NotDetected) Parainfluenza 1 (PCR) (NotDetected) Parainfluenza 2 (PCR) (NotDetected) Parainfluenza 3 (PCR) (NotDetected) Parainfluenza 4 (PCR) (NotDetected) RSV (PCR) (NotDetected) Entero/Rhino (PCR) (NotDetected) BMP 02/05/20 10:37 Sodium 134 L Potassium 4.1 Chloride 99 Carbon Dioxide 28 BUN 22 H Creatinine 1.77 H Glucose 219 H Calcium 9.0 Cardiac Enzymes 02/05/20 02/05/20 Range/Units 10:37 19:50 Total Creatine Kinase 202 (39-308) U/L Troponin I 0.187 H* 0.144 H* (0-0.045) ng/ml Liver Function 02/05/20 Range/Units 10:37 Total Bilirubin 0.5 (0.2-1) mg/dl AST 39 H (15-37) U/L ALT 40 (12-78) U/L Alkaline Phosphatase 70 (45-117) U/L Albumin 3.8 (3.4-5.0) gm/dl Urine 02/05/20 Range/Units 16:35 Urine Color Yellow Urine Appearance Clear (Clear) Urine pH 5.0 (4.5-7.5) Ur Specific [place] 1.022 (1.000-1.030) Urine Protein 2+ H (Negative) Urine Glucose (UA) Trace H (Negative) Diagnostic Findings ABDOMEN AND PELVIS CT WITHOUT CONTRAST CT DOSE: 959.06 mGycm HISTORY: fever urinary incontinence TECHNIQUE: Multiaxial CT images of the abdomen and pelvis were performed without contrast. A dose lowering technique was utilized adhering to the principles of ALARA. COMPARISON STUDY: Abdomen and pelvis CT 03/21/2019. PET scan 10/20/2019. FINDINGS: Stable 6 mm nodule within the right lower lobe on image 5. Faint patchy groundglass nodular densities within the lung bases. This favors a pneumonia. This could be secondary to viral process. No pneumoperitoneum. No pneumatosis. Posterior decompression fusion at L4-S1 with pedicle screws and rods. No suspicious lytic or blastic osseous lesions. There are poststernotomy changes. Mild circumferential thickening the distal esophagus is again noted. This likely corresponds to the patient's known esophageal mass. The unenhanced liver, spleen, adrenal glands, pancreas, and gallbladder are unremarkable. There are punctate bilateral renal calculi versus vascular calcifications. No hydronephrosis. No ureteral calculi. The prostate gland is mildly enlarged. The bladder is unremarkable. No retroperitoneal lymphadenopathy. Normal caliber aorta demonstrating moderate atherosclerotic plaque. Suboptimal evaluation for bowel pathology due to the lack of intravenous and oral contrast. However, there is no definite bowel wall thickening or obstruction. A few colonic diverticula. No evidence for diverticulitis. The appendix is not identified and reportedly surgically absent. IMPRESSION: 1. Faint patchy groundglass nodular densities within the lung bases. This likely represents a pneumonia and could be secondary to a viral process. 2. Mild circumferential thickening at the distal esophagus is again noted. This likely represents the patient's known esophageal mass. 3. No definite bowel wall thickening or obstruction. 4. Stable 6 mm nodule within the right lower lobe. 5. Additional findings as described above. MR lumbar spine wo/w con CLINICAL HISTORY: back pain urinary incontinence fever HISTORY OF ESOPHAGEAL CARCINOMA. LEG WEAKNESS. EVALUATE FOR ABSCESS. TECHNIQUE: Sagittal and axial T1, T2 and STIR images were obtained. Images were acquired before and after the administration of 9 cc of intravenous Gadavist COMPARISON STUDY: CT scan of the abdomen and pelvis dated 02/05/2020 OBSERVATIONS: There are postsurgical changes of discectomies interbody fusions at the L4-5 and L5-S1 levels. There is evidence for spinal fusion with posterior pedicle screw fixation at the L4-L5 and S1 levels. There is mild marrow edema at the L3-4 level which is felt to be on a discogenic basis. There are no areas of marrow replacement to indicate neoplasm or osteomyelitis. L1-2: There is a mild circumferential disc bulge. There is no significant spinal or foraminal stenosis L2-3: There is circumferential disc bulge. There is mild spinal canal narrowing. There is no significant foraminal stenosis L3-4: There is a circumferential disc bulge. There is facet joint ligamentous hypertrophy. There is severe spinal stenosis. There is moderate to severe bilateral foraminal narrowing.. L4-5: There are postsurgical changes of discectomy and posterior laminectomy. There is no significant spinal stenosis. There is no definite foraminal narrowing although evaluation is limited due to artifact from the pedicle screws. L5-S1: There are postsurgical changes of discectomy and interbody fusion. There is a posterior laminectomy. There is no significant spinal stenosis. There is no definite foraminal narrowing however evaluation is limited due to artifact from the pedicle screws. The conus medullaris and cauda equina appear normal. There are no fluid collections to indicate epidural abscess. IMPRESSION: 1. Study mildly compromised due to metallic artifact from prior spinal decompression and fusion 2. No evidence of discitis or osteomyelitis. 3. No evidence of epidural abscess. 4. Multilevel spondylytic changes with severe spinal stenosis at the L3-4 level. XR chest 1V portable CLINICAL HISTORY: SEPSIS COMPARISON STUDY: PET/CT October 20, 2019. Chest CT March 21, 2019. FINDINGS: There are median sternotomy wires and clips from bypass grafting. Mild cardiomegaly is noted. No evidence for pulmonary edema. There is no pneumothorax or pleural effusion. There is no consolidation to suggest pneumonia. IMPRESSION: No acute cardiopulmonary findings. No change in appearance of the chest.
[2020-02-05] MEDS ORDERED: PSEUDOEPHEDRINE HCL 30 MG TAB PO SCH (20:00)
[2020-02-05] MEDS: cefTRIAXone SODIUM 2,000 MG in DEXTROSE 5% 50 ML IV SCH (20:46)
[2020-02-05] MEDS ORDERED: PROMETHAZINE HCL 25 MG TAB PO PRN (20:46)
[2020-02-05] MEDS ORDERED: OXYCODONE HCL IR 5 MG TAB (IMMEDIATE RELEASE) PO PRN (20:58)
[2020-02-05] MEDS: SOTALOL HCL 80 MG TAB PO SCH (21:37)
[2020-02-05] MEDS: GABAPENTIN 300 MG CAP PO SCH (21:37)
[2020-02-05] MEDS: DOXYCYCLINE HYCLATE 100 MG in DEXTROSE 5% 100 ML IV SCH (21:40)
[2020-02-05] MEDS: INSULIN ASPART 100 UNITS/ML 3 ML PEN SC SCH (21:51)
[2020-02-05] MEDS: INSULIN GLARGINE SOLOSTAR 100 UNITS/ML 3 ML PEN SC SCH (21:52)
[2020-02-06] MEDS: ACETAMINOPHEN 325 MG TAB PO PRN ×2 (00:10→21:15)
[2020-02-06] MEDS: SODIUM CHLORIDE 0.9% 1000ML 1,000 ML IV SCH ×3 (04:17→17:56)
[2020-02-06 06:57] LABS: Hematocrit (blood only) 32.1 % (42-52); Hemoglobin 10.7 g/dL (14.0-18.0); Mean Corpuscular Hemoglobin 30.1 pg (25-34); Mean Corpuscular Hgb Conc 33.3 g/dL (32-36); Mean Corpuscular Volume 90.4 fL (80-100); Mean Platelet Volume 9.7 fL (7.4-10.4); Platelet Count 129 K/uL (130-400); RDW Coefficient of Variation 13.1 % (11.5-14.5); RDW Standard Deviation 43.3 fL (36.4-46.3); Red Blood Count 3.55 M/uL (4.7-6.1); White Blood Count 6.68 K/uL (4.8-10.8)
[2020-02-06 07:31] LABS: BUN Creatinine Ratio 14.3 (10-20); Calcium 8.3 mg/dl (8.5-10.1); Creatinine Clr Calc Pharmacy 35.7 ml/min; Est GFR (African American) 40.6; Potassium 3.9 mmol/L (3.5-5.1)
[2020-02-06 07:36] LABS: Ferritin 133.1 ng/ml (8-388)
[2020-02-06 08:07] LABS: Estimated Average Glucose 200 mg/dl; Hemoglobin A1C 8.6 % (4.5-5.6)
[2020-02-06] MEDS: INSULIN ASPART 100 UNITS/ML 3 ML PEN SC SCH ×4 (08:34→22:01)
[2020-02-06] MEDS: ROSUVASTATIN CALCIUM 20 MG TAB PO SCH (10:31)
[2020-02-06] MEDS: TAMSULOSIN HCL 0.4 MG CAP PO SCH (10:31)
[2020-02-06] MEDS: ASPIRIN 81 MG ECTAB PO SCH (10:31)
[2020-02-06] MEDS: PANTOprazole 40 MG TAB PO SCH (10:31)
[2020-02-06] MEDS: GABAPENTIN 300 MG CAP PO SCH ×2 (10:31→21:15)
[2020-02-06] MEDS: MULTIVITAMIN TAB PO SCH (10:31)
[2020-02-06] MEDS: SOTALOL HCL 80 MG TAB PO SCH ×2 (10:32→21:19)
[2020-02-06] MEDS: DOXYCYCLINE HYCLATE 100 MG in DEXTROSE 5% 100 ML IV SCH ×2 (10:34→21:29)
[2020-02-06] MEDS: INSULIN GLARGINE SOLOSTAR 100 UNITS/ML 3 ML PEN SC SCH ×2 (10:50→22:00)
--- NOTE | 2020-02-06 11:12 | XRay Report ---
XR chest 1V portable CLINICAL HISTORY: COVID+ pna, reassess, increasing oxygen requirements. COMPARISON STUDY: 02/05/2020 FINDINGS: The heart remains borderline enlarged. There are postsurgical changes of midline sternotomy . There is no failure. There is no focal pulmonary consolidation. There are no pleural effusions.[ IMPRESSION: Stable findings. No evidence of focal pulmonary consolidation ACT 112: Negative or not required by law. Electronically signed by: James Grissom M.D. 02/06/2020 11:10 AM
--- NOTE | 2020-02-06 12:45 | Electrocardiogram Report ---
Test Reason : Blood Pressure : / mmHG Vent. Rate : 093 BPM Atrial Rate : 096 BPM P-R Int : 320 ms QRS Dur : 128 ms QT Int : 460 ms P-R-T Axes : 000 060 051 degrees QTc Int : 571 ms Sinus rhythm with 1st degree A-V block with occasional Premature ventricular complexes Right bundle branch block Abnormal ECG When compared with ECG of 24-SEP-2018 07:23, Premature ventricular complexes are now Present Confirmed by Zach Gaona ([id number]) on 02/06/2020 12:45:09 PM Referred By: REFERRED SELF Confirmed By:Zach Gaona
[2020-02-06] MEDS: PSEUDOEPHEDRINE HCL 30 MG TAB PO SCH ×2 (12:59→18:03)
[2020-02-06] MEDS: dexAMETHasone 1 MG TAB PO SCH (14:36)
[2020-02-06] MEDS: ASCORBIC ACID 500 MG TAB PO SCH (14:36)
[2020-02-06] MEDS: ZINC SULFATE 220 MG CAPSULE PO SCH (14:37)
[2020-02-06] MEDS: CHOLECALCIFEROL 1,000 UNITS 25 MCG TAB PO SCH (14:38)
--- NOTE | 2020-02-06 19:12 | Hospitalist Progress Note ---
Date of Service February 06, 2020 Assessment & Plan (1) Sepsis: Resuscitated. Still reporting fever and chills but starting to feel better. Has some evidence of viral pneumonia on imaging. Cont Rocephin, Doxy and maintenance IVF as he is not eating much. (2) COVID-19: small oxygen requirement developed overnight. This qualified him for steroids and dexamethasone 6mg was started once daily x 10 days. No further BMs, so diarrhea appears to have resolved. (3) Pneumonia: likely viral 2/2 COVID with negative procalcitonin. Repeat CXR imaging this morning reveals stable findings with no evidence of focal lobar consolidation. Cont Rocephin and doxycycline. (4) Acute otitis media: Somewhat improved today. Effusion with ?purulence bilaterally. Ceftri axone for coverage. Sudafed for decongestant is helping, GI cocktail for throat pain given last night but he cannot remember if this helped or not, and PRN chloraseptic for symptom management. (5) Back pain: Patient is a history of severe spinal stenosis and back surgery several years ago. He has had chronic lower back pain since that surgery but now re ports acute lower back pain in the last 2 weeks which is affecting his gait and strength when going from sitting to standing positions. His L-spine MRI did not show acute cord compression or other evidence of acute infectious etiology or metastatic cancer. However, there is severe spinal stenosis and pathology at the L3-L4 level which matches the dermatomes effected in the thigh. We will plan to have PT and OT evaluate him for safety to return home. Discussed the case with the spine surgeon who reviewed the films. Recommended seein him in the office when this all clears up--suspects synmptoms are secondary to spinal stenosis. Continue pain medications and other palliative efforts at this time. (6) Elevated troponin: Demand ischemia is most likely in setting of sepsis with COVID infection. Serial trop was flat without rise overnight and he continues to deny chest pain, etc. EKG not performed this am, so will trend in am. Monitor QTc on sotalol. (7) RHIANNON (acute kidney injury): Likely related to recent diarrhea in setting of sepsis. Remains elevated at 1.7 today. Cont IVF today and cont holding ACEI. If not improved by tomorrow, will consider Nephrology consultation. (8) S/P CABG (coronary artery bypass graft): Cont medical management per home regimen including ASA and Crestor. No BB in setting of sotalol use. ACEI on hold in setting of RHIANNON. 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 He completed neoadjuvant combined chemotherapy with weekly paclitaxel carboplatin x6 cycles and radiation treatment of x28 in [place] he declined surgical intervention. Follow-up upper GI endoscopy showed no residual carcinoma in October 2019. Currently off treatment and followed with observation since July [address] Cosme Hernandez. (10) Paroxysmal atrial fibrillation: Sees Dr. Clayton regularly. He is currently in sinus rhythm. Cont home sotalol, monitor QTC on daily EKG. Pt refused AC in the past. (11) Diabetes mellitus, type 2: Basal bolus insulin while admitted. A1C is 8.6 reflecting poor control as outpatient . Current glucose is at goal, however, with the addition of steroids this will go up. Tightened control of the insulin today when steroids were added and increased Lantus BID. (12) DVT prophylaxis: Heparin DNR Dispo-likely will be here through the weekend pending clinical improvement on therapy. Nikki Townsend DO [facility] Hospitalist Admission and Anticipated Discharge Date Admission Date: February 05, 2020 Subjective New oxygen requirement overnight reports some improvement in throat pain back pain is resolved unless he moves pt reports not having moved out of bed yet today feels fevers and chills this morning-apathetic to his food as a result steroids added. Review of Systems Review of Systems: All systems reviewed & are unremarkable except as noted in Subjective Physical Exam Physical Exam: CONSTITUTIONAL: WNWD, vitals as above, generally well- appearing EYES: normal conjunctivae, no scleral icterus ENT: external ear and nose normal, oropharynx clear , MMM. No maxillary or ethmoid sinus tenderness NECK: trachea midline, no lymphadenopathy RESPIRATORY: clear to auscultation bilaterally, no crackles, rales or wheezes, normal respiratory effort CARDIOVASCULAR: regular rate and rhythm, S1 and 2 heard without murmurs, gallops or rubs, no JVD, no peripheral edema, heart sounds are distant and difficult to auscultate CHEST: inspection of chest was normal GASTROINTESTINAL: soft, protuberant, nontender, no guarding MUSCULOSKELETAL: strength 5/5 throughout, head is normocephalic and atraumatic, neck supple, normal palpation of chest wall without tenderness SKIN: warm and dry NEUROLOGIC: no facial palsy, no dysarthria. CN 2-12 grossly intact, no sensory deficit, normal cognition, normal speech, no tremor. PSYCHIATRIC: alert cooperative and oriented to person, place and time. Results & Data Results & Data ([facility]) Vital Signs (Past 12 Hours) Vital Signs Temp Pulse Resp BP Pulse Ox 02/06/20 17:02 36.8 C 82 21 157/75 H 98 02/06/20 12:07 36.9 C 72 19 172/77 H 99 02/06/20 08:26 36.6 C 79 18 143/78 H 97 Laboratory Results Short CBC 02/06/20 Range/Units 06:27 WBC 6.68 (4.8-10.8) K/uL Hgb 10.7 L (14.0-18.0) g/dL Hct 32.1 L (42-52) % Plt Count 129 L (130-400) K/uL BMP 02/06/20 06:27 Sodium 136 Potassium 3.9 Chloride 102 Carbon Dioxide 27 BUN 26 H Creatinine 1.79 H Glucose 156 H Calcium 8.3 L Cardiac Enzymes 02/05/20 02/06/20 Range/Units 19:50 01:28 Troponin I 0.144 H* 0.131 H* (0-0.045) ng/ml Medications Administered Current Inpatient Medications Acetaminophen (Acetaminophen 325 Mg Tab) 650 mg PO Q4H PRN PRN Reason: Pain or Fever Stop: 03/06/20 19:11 Last Admin: 02/06/20 00:10 Dose: 650 mg Documented by: Ascorbic Acid (Ascorbic Acid 500 Mg Tab) 500 mg PO QAM [facility] Stop: 03/07/20 12:29 Last Admin: 02/06/20 14:36 Dose: 500 mg Documented by: Aspirin (Aspirin 81 Mg Ectab) 81 mg PO QAM [facility] Stop: 03/07/20 08:59 Last Admin: 02/06/20 10:31 Dose: 81 mg Documented by: Dexamethasone (Dexamethasone 1 Mg Tab) 6 mg PO DAILY [facility] Stop: 02/15/20 09:01 Last Admin: 02/06/20 14:36 Dose: 6 mg Documented by: Dextrose (Dextrose 50% 50 Ml Syringe) 25 - 50 ml IV UD PRN; Protocol PRN Reason: Hypoglycemia Protocol Stop: 03/06/20 19:11 Gabapentin (Gabapentin 300 Mg Cap) 300 mg PO BID [facility] Stop: 03/06/20 20:59 Last Admin: 02/06/20 10:31 Dose: 300 mg Documented by: Glucagon (Glucagon For Inj 1 Mg Vial) 1 mg SQ UD PRN; Protocol PRN Reason: Hypoglycemia Protocol Stop: 03/06/20 19:11 Glucose (Glucose 10 Tabs/Tube) 4 - 8 tabs PO UD PRN; Protocol PRN Reason: Hypoglycemia Protocol Stop: 03/06/20 19:11 Glucose (Glucose 40% Gel 15 Gm Tube) 15 - 30 gm PO UD PRN; Protocol PRN Reason: Hypoglycemia Protocol Stop: 03/06/20 19:11 Sodium Chloride (Nss 1000ml) 1,000 mls @ 80 mls/hr IV .[id number] [facility] Stop: 03/06/20 10:14 Last Admin: 02/06/20 17:56 Dose: 125 mls/hr Documented by: Ceftriaxone Sodium 2,000 mg/ (Dextrose) 50 mls @ 100 mls/hr IV Q24H [facility]; Protocol Stop: 02/15/20 19:59 Last Infusion: 02/05/20 21:53 Dose: Infused Documented by: Doxycycline Hyclate 100 mg/ (Dextrose) 110 mls @ 50 mls/hr IV Q12 [facility] Stop: 02/12/20 19:59 Last Infusion: 02/06/20 14:37 Dose: Infused Documented by: Insulin Aspart (Insulin Aspart 100 Units/Ml 3 Ml Pen) 0 units SC ACHS [facility] Stop: 03/06/20 19:29 Last Admin: 02/06/20 18:14 Dose: 2 units Documented by: Insulin Glargine (Insulin Glargine Solostar 100 Units/Ml 3 Ml Pen) 23 units SC BID [facility] Stop: 03/07/20 20:59 Miscellaneous (Carbohydrates For Hypoglycemia ) 15 - 30 gm PO UD PRN PRN Reason: Hypoglycemia Protocol Stop: 03/06/20 19:11 Morphine Sulfate (Morphine Sulfate 2 Mg/Ml Carp) 2 mg IV Q2H PRN PRN Reason: pain or chest pain Stop: 02/19/20 19:11 Multivitamins (Multivitamin Tab) 1 tab PO QAM [facility] Stop: 03/07/20 08:59 Last Admin: 02/06/20 10:31 Dose: 1 tab Documented by: Nitroglycerin (Nitroglycerin Sl 0.4 Mg/Tab Tab) 0.4 mg SL UD PRN PRN Reason: Chest Pain Stop: 03/06/20 19:11 Oxycodone HCl (Oxycodone Hcl Ir 5 Mg Tab (Immediate Release)) 5 mg PO Q4H PRN PRN Reason: Severe Pain Stop: 02/19/20 20:57 Pantoprazole Sodium ([facility]ole 40 Mg Tab) [facility]: 03/07/20 08:59 Last Admin: 02/06/20 10:31 Dose: 40 mg Documented by: Phenol (Chloraseptic 1.4% Soln 180 Ml Btl) 2 sprays MT Q4H PRN PRN Reason: sore throat Stop: 03/06/20 19:11 Last Admin: 02/05/20 21:39 Dose: 2 sprays Documented by: Promethazine HCl (Promethazine Hcl 25 Mg Tab) 25 mg PO Q6H PRN PRN Reason: Nausea And Vomiting Stop: 03/06/20 20:45 Pseudoephedrine HCl (Pseudoephedrine Hcl 30 Mg Tab) 60 mg PO BID17 [facility] Stop: 02/07/20 17:01 Last Admin: 02/06/20 18:03 Dose: 60 mg Documented by: Rosuvastatin Calcium (Rosuvastatin Calcium 20 Mg Tab) 20 mg PO QAM [facility] Stop: 03/07/20 08:59 Last Admin: 02/06/20 10:31 Dose: 20 mg Documented by: Sotalol HCl (Sotalol Hcl 80 Mg Tab) 40 mg PO BID [facility] Stop: 03/06/20 20:59 Last Admin: 02/06/20 10:32 Dose: 40 mg Documented by: Tamsulosin HCl (Tamsulosin Hcl 0.4 Mg Cap) 0.[facility] Stop: 03/07/20 08:59 Last Admin: 02/06/20 10:31 Dose: 0.4 mg Documented by: Vitamin D (Cholecalciferol 1,000 Units 25 Mcg Tab) 1,000 units [facility] Stop: 03/07/20 12:29 Last Admin: 02/06/20 14:38 Dose: 1,000 units Documented by: Zinc Sulfate (Zinc Sulfate 220 Mg Capsule) 220 [facility] Stop: 03/07/20 12:29 Last Admin: 02/06/20 14:37 Dose: 220 mg Documented by:
[2020-02-06] MEDS: cefTRIAXone SODIUM 2,000 MG in DEXTROSE 5% 50 ML IV SCH (21:29)
[2020-02-07] MEDS ORDERED: ALUMINUM/MAGNESIUM SUSP 72 ML, LIDOCAINE HCL VISCOUS 2% 24 ML, BARCODE IDENTIFIER 1 EA PO PRN (00:12)
[2020-02-07 06:14] LABS: BUN Creatinine Ratio 16.7 (10-20); Creatinine Clr Calc Pharmacy 41.5 ml/min; Est GFR (African American) 48.7; Magnesium 1.9 mg/dl (1.8-2.4); Potassium 4.2 mmol/L (3.5-5.1)
[2020-02-07 06:17] LABS: Albumin Globulin Ratio 0.8 (0.9-2); Bilirubin,Total 0.5 mg/dl (0.2-1); Globulin 3.9 gm/dl (2.5-4.0); Total Protein 6.9 gm/dl (6.4-8.2)
[2020-02-07] MEDS: dexAMETHasone 1 MG TAB PO SCH (08:00)
[2020-02-07] MEDS: GABAPENTIN 300 MG CAP PO SCH ×2 (08:00→21:25)
[2020-02-07] MEDS: ASCORBIC ACID 500 MG TAB PO SCH (08:01)
[2020-02-07] MEDS: SOTALOL HCL 80 MG TAB PO SCH ×2 (08:01→21:25)
[2020-02-07] MEDS: ZINC SULFATE 220 MG CAPSULE PO SCH (08:01)
[2020-02-07] MEDS: PSEUDOEPHEDRINE HCL 30 MG TAB PO SCH ×2 (08:02→16:51)
[2020-02-07] MEDS: CHOLECALCIFEROL 1,000 UNITS 25 MCG TAB PO SCH (08:02)
[2020-02-07] MEDS: ASPIRIN 81 MG ECTAB PO SCH (08:02)
[2020-02-07] MEDS: PANTOprazole 40 MG TAB PO SCH (08:02)
[2020-02-07] MEDS: TAMSULOSIN HCL 0.4 MG CAP PO SCH (08:02)
[2020-02-07] MEDS: ROSUVASTATIN CALCIUM 20 MG TAB PO SCH (08:02)
[2020-02-07] MEDS: MULTIVITAMIN TAB PO SCH (08:02)
[2020-02-07] MEDS: INSULIN ASPART 100 UNITS/ML 3 ML PEN SC SCH ×4 (08:33→21:30)
[2020-02-07] MEDS: INSULIN GLARGINE SOLOSTAR 100 UNITS/ML 3 ML PEN SC SCH ×2 (08:34→21:28)
--- NOTE | 2020-02-07 10:37 | Orthopedic Consultation ---
Date of Consultation February 07, 2020 Assessment & Plan (1) Neurogenic claudication due to lumbar spinal stenosis: I discussed the case with the attending physician. We both agree that he needs to recover from his current infection. There is not any need for urgent surgery. We will be able to see him on an outpatient basis in our office in approximately 4 to 6 weeks. Present on Admission?: Yes History of Present Illness Reason for Consultation: Back and bilateral leg pain Attending Physician: Nikki Townsend DO History of Present Illness This is a 79-year-old male that presents to the hospital with pneumonia and COVID positive symptoms. He is complaining of leg pain and weakness. MRI does demonstrate evidence of adjacent level disease with severe stenosis at L3-L4. Allergies Allergy/AdvReac Type Severity Reaction Status Date / Time No Known Allergies Allergy Verified 02/05/20 10:46 Home Medications Home Medications Medication Instructions Recorded Confirmed Type Lantus U-100 Insulin 20 unit SUBCUT QAM 09/22/18 02/05/20 History Novolin R Regular U-100 Insuln 1 sliding scale dose SUBCUT 09/22/18 02/05/20 History USEASDIRECTD acetaminophen [Tylenol Extra 500 - 1,000 mg PO Q6H PRN 09/22/18 02/05/20 History Strength] aspirin 81 mg PO QAM 09/22/18 02/05/20 History gabapentin 300 mg PO BID 09/22/18 02/05/20 History lisinopril 20 mg PO QAM 09/22/18 02/05/20 History metformin 1,000 mg PO BIDM 09/22/18 02/05/20 History multivitamin 1 tab PO QAM 09/22/18 02/05/20 History rosuvastatin [Crestor] 20 mg PO QAM 09/22/18 02/05/20 History tamsulosin 0.4 mg PO QAM 09/22/18 02/05/20 History omeprazole 20 mg PO DAILY 02/05/20 02/05/20 History sotalol 40 mg PO BID 02/05/20 02/05/20 History Patient History Medical History Back pain Diabetes mellitus, type 2 IDDM Diabetic neuropathy Enlarged prostate Esophageal cancer History of atrial fibrillation History of cardioversion Hyperlipidemia Hypertension Myocardial Infarction 8 YEARS AGO Paroxysmal atrial fibrillation Regurgitation of food Surgical History H/O eye surgery RT/LEFT LASER SURGERY FOR RETINA BREATHING History of appendectomy History of bronchoscopy History of cardiac cath 8 YEARS AGO AT [facility] History of colonoscopy History of esophagogastroduodenoscopy (EGD) History of tooth extraction Lipoma REMOVED FROM BACK Pilonidal cyst EXCISION Previous back surgery S/P CABG (coronary artery bypass graft) 8 YEARS AGO ([facility]) REPAIRED 3 VESSELS Family History Mother , age 80 Stroke Father , age 82 Cancer not sure kind of cancer Brother Coronary heart disease Crohn's disease Diabetes Brother Coronary heart disease Lung cancer Brother No problems noted. Brother No problems noted. Brother , age 16 Accident from a ruptured spleen when playing baseball Brother , age 86 Cancer not sure what kind Sister Alzheimer disease Sister No problems noted. Sister , age 41 Brainstem hemorrhage after surgery Sister , age 69 Diabetes Complications from DM Son No problems noted. Son No problems noted. Daughter No problems noted. 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
--- NOTE | 2020-02-07 12:07 | Hospitalist Progress Note ---
Date of Service February 07, 2020 Assessment & Plan (1) Sepsis: Resuscitated. afebrile and clinically improved. (2) COVID-19: Still with a small oxygen requirement that has not worsened. Tolerating steroids. Cont for 10 day course. Diarrhea has resolved. Cough, fevers, and chills have resolved. Blood cultures are negative. (3) Pneumonia: likely viral 2/2 COVID with negative procalcitonin. Repeat CXR with no evidence of focal lobar consolidation. Change to Augmentin (4) Acute otitis media: Sore throat is much better. Sudafed was helpful with drying him up. GI cocktail/sudafed for symptom control. augmentin (5) Back pain: Likely related to spinal stenosis, outpatient follow-up recommended. PT/OT trial as outpatient also recommended. (6) Elevated troponin: Demand ischemia is most likely in setting of sepsis with COVID infection. Serial trop was flat without rise overnight and he continues to deny chest pain, etc. (7) RHIANNON (acute kidney injury): Likely related to recent diarrhea in setting of sepsis. Improved to 1.5. ACEI will be restarted as BP is going up in the setting of steroids and IVF. IVF were stopped as he is starting to eat better. If not improved by tomorrow, will consider Nephrology consultation. (8) S/P CABG (coronary artery bypass graft): Cont medical management per home regimen including ASA, ACEI and Crestor. No BB in setting of sotalol use. 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 He completed neoadjuvant combined chemotherapy with weekly paclitaxel carboplatin x6 cycles and radiation treatment of x28 in [place] he declined surgical intervention. Follow-up upper GI endoscopy showed no residual carcinoma in October 2019. Currently off treatment and followed with observation since July [address] Cosme Hernandez. (10) Paroxysmal atrial fibrillation: Sees Dr. Clayton regularly. He is currently in sinus rhythm. Cont home sotalol, monitor QTC on EKG. Pt refused AC in the past. (11) Diabetes mellitus, type 2: Basal bolus insulin while admitted. A1C is 8.6 reflecting poor control as outpatient . Current glucose is at goal, however, with the addition of steroids has gone up despite additional intensification of insulin. Gave Regular insulin IV and asked for pharmacy glycemic consultation. (12) DVT prophylaxis: Heparin DNR Dispo-likely will be here through the weekend pending clinical improvement on therapy. I did speak with his daughter by phone and gave her an update. Nikki Townsend DO [facility] Hospitalist Admission and Anticipated Discharge Date Admission Date: February 05, 2020 Subjective Pt reports feeling better today Denies back pain but reports having not been out of bed much since admission Sore throat is significantly improved and so is mucus production. Afebrile Review of Systems Review of Systems: All systems reviewed & are unremarkable except as noted in Subjective Physical Exam Physical Exam: CONSTITUTIONAL: WNWD, vitals as above, generally well- appearing EYES: normal conjunctivae, no scleral icterus ENT: external ear and nose normal, oropharynx clear , MMM. No maxillary or ethmoid sinus tenderness NECK: trachea midline, no lymphadenopathy RESPIRATORY: clear to auscultation bilaterally, no crackles, rales or wheezes, normal respiratory effort CARDIOVASCULAR: regular rate and rhythm, S1 and 2 heard without murmurs, gallops or rubs, no JVD, no peripheral edema CHEST: inspection of chest was normal GASTROINTESTINAL: soft, protuberant, nontender, no guarding MUSCULOSKELETAL: strength 5/5 throughout, head is normocephalic and atraumatic, neck supple, normal palpation of chest wall without tenderness SKIN: warm and dry NEUROLOGIC: no facial palsy, no dysarthria. CN 2-12 grossly intact, no sensory deficit, normal cognition, normal speech, no tremor. PSYCHIATRIC: alert cooperative and oriented to person, place and time. Results & Data Results & Data ([facility]) Vital Signs (Past 12 Hours) Vital Signs Temp Pulse Resp BP Pulse Ox 02/07/20 06:00 36.6 C 73 20 176/78 H 98 Laboratory Results [facility] 02/07/20 05:33 Sodium 137 Potassium 4.2 Chloride 103 Carbon Dioxide 24 BUN 26 H Creatinine 1.54 H Glucose 242 H Calcium 9.0 Liver Function 02/07/20 Range/Units 05:33 Total Bilirubin 0.5 (0.2-1) mg/dl AST 31 (15-37) U/L ALT 29 (12-78) U/L Alkaline Phosphatase 53 (45-117) U/L Albumin 3.0 L (3.4-5.0) gm/dl Medications Administered Current Inpatient Medications Acetaminophen (Acetaminophen 325 Mg Tab) 650 mg PO Q4H PRN PRN Reason: Pain or Fever Stop: 03/06/20 19:11 Last Admin: 02/06/20 21:15 Dose: 650 mg Documented by: Ascorbic Acid (Ascorbic Acid 500 Mg Tab) 500 mg PO QAM [facility] Stop: 03/07/20 12:29 Last Admin: 02/07/20 08:01 Dose: 500 mg Documented by: Aspirin (Aspirin 81 Mg Ectab) 81 mg PO QAM [facility] Stop: 03/07/20 08:59 Last Admin: 02/07/20 08:02 Dose: 81 mg Documented by: Al Hydrox/Mg Hydrox/Simethicone 72 ml/ Lidocaine HCl 24 ml/ BARCODE IDENTIFIER 1 ea 0 ml PO Q4H PRN PRN Reason: Sore Throat Stop: 03/08/20 00:11 Dexamethasone (Dexamethasone 1 Mg Tab) 6 mg PO DAILY [facility] Stop: 02/15/20 09:01 Last Admin: 02/07/20 08:00 Dose: 6 mg Documented by: Dextrose (Dextrose 50% 50 Ml Syringe) 25 - 50 ml IV UD PRN; Protocol PRN Reason: Hypoglycemia Protocol Stop: 03/06/20 19:11 Gabapentin (Gabapentin 300 Mg Cap) 300 mg PO BID [facility] Stop: 03/06/20 20:59 Last Admin: 02/07/20 08:00 Dose: 300 mg Documented by: Glucagon (Glucagon For Inj 1 Mg Vial) 1 mg SQ UD PRN; Protocol PRN Reason: Hypoglycemia Protocol Stop: 03/06/20 19:11 Glucose (Glucose 10 Tabs/Tube) 4 - 8 tabs PO UD PRN; Protocol PRN Reason: Hypoglycemia Protocol Stop: 03/06/20 19:11 Glucose (Glucose 40% Gel 15 Gm Tube) 15 - 30 gm PO UD PRN; Protocol PRN Reason: Hypoglycemia Protocol Stop: 03/06/20 19:11 Ceftriaxone Sodium 2,000 mg/ (Dextrose) 50 mls @ 100 mls/hr IV Q24H [facility]; Protocol Stop: 02/15/20 19:59 Last Infusion: 02/06/20 22:03 Dose: Infused Documented by: Doxycycline Hyclate 100 mg/ (Dextrose) 110 mls @ 50 mls/hr IV Q12 [facility] Stop: 02/12/20 19:59 Last Infusion: 02/06/20 23:40 Dose: Infused Documented by: Insulin Aspart (Insulin Aspart 100 Units/Ml 3 Ml Pen) 0 units SC ACHS [facility] Stop: 03/06/20 19:29 Last Admin: 02/07/20 08:33 Dose: 11 units Documented by: Insulin Glargine (Insulin Glargine Solostar 100 Units/Ml 3 Ml Pen) 23 units SC BID [facility] Stop: 03/07/20 20:59 Last Admin: 02/07/20 08:34 Dose: 23 units Documented by: Lisinopril (Lisinopril 20 Mg Tab) [facility] Stop: 03/08/20 09:44 Miscellaneous (Carbohydrates For Hypoglycemia ) 15 - 30 gm PO UD PRN PRN Reason: Hypoglycemia Protocol Stop: 03/06/20 19:11 Morphine Sulfate (Morphine Sulfate 2 Mg/Ml Carp) 2 mg IV Q2H PRN PRN Reason: pain or chest pain Stop: 02/19/20 19:11 Multivitamins (Multivitamin Tab) 1 tab PO [facility] Stop: 03/07/20 08:59 Last Admin: 02/07/20 08:02 Dose: 1 tab Documented by: Nitroglycerin (Nitroglycerin Sl 0.4 Mg/Tab Tab) 0.4 mg SL UD PRN PRN Reason: Chest Pain Stop: 03/06/20 19:11 Oxycodone HCl (Oxycodone Hcl Ir 5 Mg Tab (Immediate Release)) 5 mg PO Q4H PRN PRN Reason: Severe Pain Stop: 02/19/20 20:57 Pantoprazole Sodium (Pantoprazole 40 Mg Tab) 40 mg PO [facility] Stop: 03/07/20 08:59 Last Admin: 02/07/20 08:02 Dose: 40 mg Documented by: Phenol (Chloraseptic 1.4% Soln 180 Ml Btl) 2 sprays MT Q4H PRN PRN Reason: sore throat Stop: 03/06/20 19:11 Last Admin: 02/05/20 21:39 Dose: 2 sprays Documented by: Promethazine HCl (Promethazine Hcl 25 Mg Tab) 25 mg PO Q6H PRN PRN Reason: Nausea And Vomiting Stop: 03/06/20 20:45 Pseudoephedrine HCl (Pseudoephedrine Hcl 30 Mg Tab) 60 mg PO BID17 [facility] Stop: 02/07/20 17:01 Last Admin: 02/07/20 08:02 Dose: 60 mg Documented by: Rosuvastatin Calcium (Rosuvastatin Calcium 20 Mg Tab) 20 mg [facility] Stop: 03/07/20 08:59 Last Admin: 02/07/20 08:02 Dose: 20 mg Documented by: Sotalol HCl (Sotalol Hcl 80 Mg Tab) 40 mg PO BID [facility] Stop: 03/06/20 20:59 Last Admin: 02/07/20 08:01 Dose: 40 mg Documented by: Tamsulosin HCl (Tamsulosin Hcl 0.4 Mg Cap) 0.4 mg PO [facility] Stop: 03/07/20 08:59 Last Admin: 02/07/20 08:02 Dose: 0.4 mg Documented by: Vitamin D (Cholecalciferol 1,000 Units 25 Mcg Tab) 1,000 units PO [facility] Stop: 03/07/20 12:29 Last Admin: 02/07/20 08:02 Dose: 1,000 units Documented by: Zinc Sulfate (Zinc Sulfate 220 Mg Capsule) 220 mg PO [facility] Stop: 03/07/20 12:29 Last Admin: 02/07/20 08:01 Dose: 220 mg Documented by:
[2020-02-07] MEDS: DOXYCYCLINE HYCLATE 100 MG in DEXTROSE 5% 100 ML IV SCH (12:13)
[2020-02-07] MEDS: lisinopriL 20 MG TAB PO SCH (12:33)
[2020-02-07] MEDS ORDERED: HydrALAZINE HCL 20 MG/ML VIAL IV STA (16:19)
[2020-02-07] MEDS ORDERED: PHARMACY GLYCEMIC MGMT CONSULT SCH (16:26)
[2020-02-07] MEDS ORDERED: INSULIN HUMAN REGULAR PER UNIT 5 UNITS in SYRINGE 4.95 ML IV ONE (16:45)
[2020-02-07] MEDS: SODIUM CHLORIDE 0.9% 1000ML 1,000 ML IV SCH (17:03)
[2020-02-07] MEDS: DOXYCYCLINE HYCLATE 100 MG CAP PO SCH (21:25)
[2020-02-07] MEDS: AMOXICILLIN 500 MG CAP PO SCH (21:25)
[2020-02-07] MEDS: ACETAMINOPHEN 325 MG TAB PO PRN (23:57)
[2020-02-08] MEDS: DOXYCYCLINE HYCLATE 100 MG CAP PO SCH ×2 (08:14→20:51)
[2020-02-08] MEDS: lisinopriL 20 MG TAB PO SCH (08:15)
[2020-02-08] MEDS: AMOXICILLIN 500 MG CAP PO SCH ×3 (08:15→20:51)
[2020-02-08] MEDS: PANTOprazole 40 MG TAB PO SCH (08:16)
[2020-02-08] MEDS: CHOLECALCIFEROL 1,000 UNITS 25 MCG TAB PO SCH (08:16)
[2020-02-08] MEDS: ASCORBIC ACID 500 MG TAB PO SCH (08:16)
[2020-02-08] MEDS: ZINC SULFATE 220 MG CAPSULE PO SCH (08:17)
[2020-02-08] MEDS: GABAPENTIN 300 MG CAP PO SCH ×2 (08:17→20:47)
[2020-02-08] MEDS: MULTIVITAMIN TAB PO SCH (08:17)
[2020-02-08] MEDS: TAMSULOSIN HCL 0.4 MG CAP PO SCH (08:17)
[2020-02-08] MEDS: ASPIRIN 81 MG ECTAB PO SCH (08:18)
[2020-02-08] MEDS: ROSUVASTATIN CALCIUM 20 MG TAB PO SCH (08:19)
[2020-02-08] MEDS: dexAMETHasone 1 MG TAB PO SCH (08:19)
[2020-02-08] MEDS: SOTALOL HCL 80 MG TAB PO SCH ×2 (08:19→20:46)
[2020-02-08] MEDS ORDERED: INSULIN HUMAN NPH SC SCH (09:00)
[2020-02-08] MEDS ORDERED: INSULIN GLARGINE SOLOSTAR 100 UNITS/ML 3 ML PEN SC SCH ×2 (09:00→21:00)
[2020-02-08] MEDS: INSULIN ASPART 100 UNITS/ML 3 ML PEN SC SCH ×4 (09:51→21:01)
[2020-02-08 10:42] LABS: Hematocrit (blood only) 32.9 % (42-52); Hemoglobin 11.2 g/dL (14.0-18.0); Mean Corpuscular Hemoglobin 30.4 pg (25-34); Mean Corpuscular Volume 89.2 fL (80-100); Mean Platelet Volume 9.1 fL (7.4-10.4); Platelet Count 161 K/uL (130-400); RDW Standard Deviation 42.5 fL (36.4-46.3); Red Blood Count 3.69 M/uL (4.7-6.1); White Blood Count 5.58 K/uL (4.8-10.8)
[2020-02-08 11:08] LABS: BUN Creatinine Ratio 20.1 (10-20); Calcium 8.8 mg/dl (8.5-10.1); Creatinine Clr Calc Pharmacy 41.5 ml/min; Est GFR (African American) 48.7; Magnesium 1.9 mg/dl (1.8-2.4); Potassium 3.9 mmol/L (3.5-5.1)
--- NOTE | 2020-02-08 12:02 | Electrocardiogram Report ---
Test Reason : Blood Pressure : / mmHG Vent. Rate : 060 BPM Atrial Rate : 060 BPM P-R Int : 202 ms QRS Dur : 148 ms QT Int : 492 ms P-R-T Axes : 051 041 033 degrees QTc Int : 492 ms Sinus rhythm Premature atrial complexes Right bundle branch block Abnormal ECG When compared with ECG of 05-FEB-2020 10:25, Premature ventricular complexes are no longer Present Premature atrial complexes are now Present MS interval has decreased Vent. rate has decreased BY 33 BPM QT has shortened Confirmed by Zach Gaona ([id number]) on 02/08/2020 12:02:05 PM Referred By: REFERRED SELF Confirmed By:Zach Gaona
--- NOTE | 2020-02-08 14:09 | Pharmacy Report ---
Glycemic Control Consultation - Date of Service February 08, 2020 - Scope Scope: Glycemic Pharmacist consulted for glycemic control and to write orders per [facility] inpatient glycemic control protocol. - Objective Weight: 92.7 kg Accuchecks BSG (last 24hrs): 02/07/20 02/07/20 02/08/20 18:28 21:22 08:12 Glucose POC Glucose 172 H 190 H 110 H 02/08/20 02/08/20 10:31 12:58 Glucose 227 H POC Glucose 111 H Laboratory Data (last 24hrs): 02/08/20 10:31 Potassium 3.9 Carbon Dioxide 25 Anion Gap 8.0 Creatinine 1.54 H Est Cr Clr Drug Dosing 41.5 HbA1c: Hemoglobin A1c 8.6 % (4.5-5.6) H 02/06/20 06:27 - Recent Pertinent Medications Outpatient Anti-diabetic Regimen: * Lantus 20 units in the morning * Novolog * Metformin * A1c = 8.6 % 02/06/20 The patient is currently receiving: * Basal insulin: Lantus 23 units every 12 hours * Correctional Insulin: Novolog Correction per scale ACHS Goal Range: Low 110 mg/dL - High 140 mg/dL Correction Factor: 10 mg/dL/unit * Prandial insulin: Per carb ratio of 1 unit per 4 grams CHO consumed Risk Factors for Insulin Resistance: * Steroids: dexamethasone 6 mg PO (day 3) * Infection: COVID and pneumonia/ otitis media --> on Amoxil * Diet: oral - Assessment & Plan Assessment & Plan: ASSESSMENT: * Mr Enriquez is an 79 y/o M with T2DM on insulin and metformin who was admitted for COVID-19. The patient has been started on 10 days of dexamethasone 6 mg orally. Today is day 3. * Insulin requirements have been steadily rising -- from 47 units on 02/06/20 (38 units of basal and 9 units of basal) to 97 units on 02/07/2020 (46 units of basal and 51 units of bolus). * Patient's BSG's yesterday ranged from 172-327 mg/dL. Fasting today is 110 mg/dL (compared to 215 mg/dL yesterday) and lunch was 111 mg/dL. * Evening pharmacist tightened Novolog yesterday to CF 10 and CR of 3. Attempted to use NPH this morning to off-set hyperglycemia from steroids but patient declined. Tightened carbohydrate ratio further to CR of 3. * For Lantus -- patient was on weight-based stress of 3 Lantus. this produced a 100 point drop in fasting BSGs. Reduce dose by about 30%. Continue split dosing for now to allow for easier transition back to once daily. PLAN FOR INPATIENT GLYCEMIC CONTROL: * Basal insulin * Lantus 20 units SQ in morning and 15 units in the evening. * Bolus insulin * NovoLog per scale ACHS or Q6hrs while NPO * Goal Range: Low 110 mg/dL - High 140 mg/dL * Correction Factor: 10 mg/dL/unit * Nutritional / Prandial insulin per carb ratio of 1 unit per 3 grams CHO consumed * Please note that the plan above was derived based on current level of insulin resistance and hospital stress. These recommendations are appropriate for inpatient admission only. Plan of care upon discharge will need to be reassessed to avoid potential outpatient hypo/hyperglycemia. Thank you.
--- NOTE | 2020-02-08 15:46 | Hospitalist Progress Note ---
Date of Service February 08, 2020 Assessment & Plan (1) Sepsis: Resuscitated. afebrile and clinically improved. (2) COVID-19: Still with a small oxygen requirement that has not worsened. Tolerating steroids. Cont until hospital discharge-likely next 1 to 2 days. Diarrhea has resolved. Cough, fevers, and chills have resolved. Blood cultures are negative. (3) Pneumonia: likely viral 2/2 COVID with negative procalcitonin. Repeat CXR with no evidence of focal lobar consolidation. Change to amox/doxy (4) Acute otitis media: Sore throat is much better. Sudafed was helpful with drying him up. GI cocktail/sudafed for symptom control. amox/doxy (5) Back pain: manageable but intermittent acute pain such as when standing at the sink brushing teeth. Likely related to spinal stenosis, outpatient follow-up recommended. PT/OT trial as outpatient also recommended. (6) Elevated troponin: Demand ischemia is most likely in setting of sepsis with COVID infection. Serial trop was flat without rise overnight and he continues to deny chest pain, etc. No further cardiac workup during this hospitalization. (7) RHIANNON (acute kidney injury): Creat up from baseline related to ACEI use and steroids. Cont to trend BMP in am. (8) S/P CABG (coronary artery bypass graft): Cont medical management per home regimen including ASA, ACEI and Crestor. No BB in setting of sotalol use. 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 He completed neoadjuvant combined chemotherapy with weekly paclitaxel carboplatin x6 cycles and radiation treatment of x28 in [place] he declined surgical intervention. Follow-up upper GI endoscopy showed no residual carcinoma in October 2019. Currently off treatment and followed with observation since July [address] Cosme Hernandez. (10) Paroxysmal atrial fibrillation: Sees Dr. Clayton regularly. He is currently in sinus rhythm. Cont home sotalol, monitor QTC on EKG. Pt refused AC in the past. (11) Diabetes mellitus, type 2: managed well by inpatient glycemic pharmacist. He is at goal. (12) DVT prophylaxis: Heparin DNR Dispo-likely dispo to home in next 2 days. I did speak with his daughter by phone and gave her an update. Nikki Townsend DO [facility] Admission and Anticipated Discharge Date Admission Date: February 05, 2020 Subjective sore throat has improved moving around well some constipation feeling overall improved WRT every symptom previously note.d Review of Systems Review of Systems: All systems reviewed & are unremarkable except as noted in Subjective Physical Exam Physical Exam: CONSTITUTIONAL: WNWD, vitals as above, generally well- appearing EYES: normal conjunctivae, no scleral icterus ENT: external ear and nose normal NECK: trachea midline, no lymphadenopathy RESPIRATORY: clear to auscultation bilaterally, no crackles, rales or wheezes, normal respiratory effort CARDIOVASCULAR: regular rate and rhythm, S1 and 2 heard without murmurs, gallops or rubs, no JVD, no peripheral edema CHEST: inspection of chest was normal GASTROINTESTINAL: soft, protuberant, nontender, no guarding MUSCULOSKELETAL: strength 5/5 throughout, head is normocephalic and atraumatic, neck supple, normal palpation of chest wall without tenderness SKIN: warm and dry NEUROLOGIC: no facial palsy, no dysarthria. CN 2-12 grossly intact, no sensory deficit, normal cognition, normal speech, no tremor. PSYCHIATRIC: alert cooperative and oriented to person, place and time. Results & Data Results & Data ([facility]) Vital Signs (Past 12 Hours) Vital Signs Temp Pulse Resp BP Pulse Ox 02/08/20 07:45 36.9 C 70 18 142/73 H 96 Laboratory Results Short CBC 02/08/20 Range/Units 10:31 WBC 5.58 (4.8-10.8) K/uL Hgb 11.2 L (14.0-18.0) g/dL Hct 32.9 L (42-52) % Plt Count 161 (130-400) K/uL [facility] 02/08/20 10:31 Sodium 138 Potassium 3.9 Chloride 105 Carbon Dioxide 25 BUN 31 H Creatinine 1.54 H Glucose 227 H Calcium 8.8 Medications Administered Current Inpatient Medications Acetaminophen (Acetaminophen 325 Mg Tab) 650 mg PO Q4H PRN PRN Reason: Pain or Fever Stop: 03/06/20 19:11 Last Admin: 02/07/20 23:57 Dose: 650 mg Documented by: Amoxicillin (Amoxicillin 500 Mg Cap) 500 mg PO TID [facility] Stop: 02/12/20 14:01 Last Admin: 02/08/20 13:00 Dose: 500 mg Documented by: Ascorbic Acid (Ascorbic Acid 500 Mg Tab) 500 mg PO QAM [facility] Stop: 03/07/20 12:29 Last Admin: 02/08/20 08:16 Dose: 500 mg Documented by: Aspirin (Aspirin 81 Mg Ectab) 81 mg PO QAM [facility] Stop: 03/07/20 08:59 Last Admin: 02/08/20 08:18 Dose: 81 mg Documented by: Al Hydrox/Mg Hydrox/Simethicone 72 ml/ Lidocaine HCl 24 ml/ BARCODE IDENTIFIER 1 ea 0 ml PO Q4H PRN PRN Reason: Sore Throat Stop: 03/08/20 00:11 Dexamethasone (Dexamethasone 1 Mg Tab) 6 mg PO DAILY [facility] Stop: 02/15/20 09:01 Last Admin: 02/08/20 08:19 Dose: 6 mg Documented by: Dextrose (Dextrose 50% 50 Ml Syringe) 25 - 50 ml IV UD PRN; Protocol PRN Reason: Hypoglycemia Protocol Stop: 03/06/20 19:11 Doxycycline Hyclate (Doxycycline Hyclate 100 Mg Cap) 100 mg PO BID@0800,2000 [facility] Stop: 02/11/20 20:01 Last Admin: 02/08/20 08:14 Dose: 100 mg Documented by: Gabapentin (Gabapentin 300 Mg Cap) 300 mg PO BID [facility] Stop: 03/06/20 20:59 Last Admin: 02/08/20 08:17 Dose: 300 mg Documented by: Glucagon (Glucagon For Inj 1 Mg Vial) 1 mg SQ UD PRN; Protocol PRN Reason: Hypoglycemia Protocol Stop: 03/06/20 19:11 Glucose (Glucose 10 Tabs/Tube) 4 - 8 tabs PO UD PRN; Protocol PRN Reason: Hypoglycemia Protocol Stop: 03/06/20 19:11 Glucose (Glucose 40% Gel 15 Gm Tube) 15 - 30 gm PO UD PRN; Protocol PRN Reason: Hypoglycemia Protocol Stop: 03/06/20 19:11 Insulin Aspart (Insulin Aspart 100 Units/Ml 3 Ml Pen) 0 units SC ACHS [facility] Stop: 03/06/20 19:29 Last Admin: 02/08/20 12:58 Dose: 21 units Documented by: Insulin Glargine (Insulin Glargine Solostar 100 Units/Ml 3 Ml Pen) 20 units SC DAILY [facility] Stop: 03/09/20 08:59 Last Admin: 02/08/20 09:50 Dose: 20 units Documented by: Insulin Glargine (Insulin Glargine Solostar 100 Units/Ml 3 Ml Pen) 15 units SC HS [facility] Stop: 03/09/20 20:59 Lisinopril (L[facility] 20 Mg Tab) [facility] [place]: 03/08/20 09:44 Last Admin: 02/08/20 08:15 Dose: 20 mg Documented by: Miscellaneous (Carbohydrates For Hypoglycemia ) 15 - 30 gm PO UD PRN PRN Reason: Hypoglycemia Protocol Stop: 03/06/20 19:11 Miscellaneous Information (Pharmacy Glycemic Mgmt Consult) 1 ea N/A UD [facility] Stop: 03/08/20 16:25 Morphine Sulfate (Morphine Sulfate 2 Mg/Ml Carp) 2 mg IV Q2H PRN PRN Reason: pain or chest pain Stop: 02/19/20 19:11 Multivitamins (Multivitamin Tab) 1 tab PO [facility] Stop: 03/07/20 08:59 Last Admin: 02/08/20 08:17 Dose: 1 tab Documented by: Nitroglycerin (Nitroglycerin Sl 0.4 Mg/Tab Tab) 0.4 mg SL UD PRN PRN Reason: Chest Pain Stop: 03/06/20 19:11 Oxycodone HCl (Oxycodone Hcl Ir 5 Mg Tab (Immediate Release)) 5 mg PO Q4H PRN PRN Reason: Severe Pain Stop: 02/19/20 20:57 Pantoprazole Sodium (Pantoprazole 40 Mg Tab) 40 mg PO [facility] Stop: 03/07/20 08:59 Last Admin: 02/08/20 08:16 Dose: 40 mg Documented by: Phenol (Chloraseptic 1.4% Soln 180 Ml Btl) 2 sprays MT Q4H PRN PRN Reason: sore throat Stop: 03/06/20 19:11 Last Admin: 02/05/20 21:39 Dose: 2 sprays Documented by: Promethazine HCl (Promethazine Hcl 25 Mg Tab) 25 mg PO Q6H PRN PRN Reason: Nausea And Vomiting Stop: 03/06/20 20:45 Rosuvastatin Calcium (Rosuvastatin Calcium 20 Mg Tab) 20 mg PO [facility] Stop: 03/07/20 08:59 Last Admin: 02/08/20 08:19 Dose: 20 mg Documented by: Sotalol HCl (Sotalol Hcl 80 Mg Tab) 40 mg PO BID [facility] Stop: 03/06/20 20:59 Last Admin: 02/08/20 08:19 Dose: 40 mg Documented by: Tamsulosin HCl (Tamsulosin Hcl 0.4 Mg Cap) 0.4 [facility] [place]: 03/07/20 08:59 Last Admin: 02/08/20 08:17 Dose: 0.4 mg Documented by: Vitamin D (Cholecalciferol 1,000 Units 25 Mcg Tab) 1,000 units PO [facility] Stop: 03/07/20 12:29 Last Admin: 02/08/20 08:16 Dose: 1,000 units Documented by: Zinc Sulfate (Zinc Sulfate 220 Mg Capsule) 220 mg PO [facility] Stop: 03/07/20 12:29 Last Admin: 02/08/20 08:17 Dose: 220 mg Documented by:
[2020-02-08] MEDS: POLYETHYLENE (MIRALAX) 17 GM PACK PO PRN (18:55)
[2020-02-08] MEDS: ACETAMINOPHEN 325 MG TAB PO PRN (21:04)
[2020-02-09 06:28] LABS: Hematocrit (blood only) 32.4 % (42-52); Mean Corpuscular Hemoglobin 30.3 pg (25-34); Mean Corpuscular Volume 89.3 fL (80-100); Mean Platelet Volume 9.6 fL (7.4-10.4); Platelet Count 179 K/uL (130-400); RDW Coefficient of Variation 13.1 % (11.5-14.5); RDW Standard Deviation 42.6 fL (36.4-46.3); Red Blood Count 3.63 M/uL (4.7-6.1); White Blood Count 4.73 K/uL (4.8-10.8)
[2020-02-09 06:55] LABS: BUN Creatinine Ratio 20.2 (10-20); Creatinine Clr Calc Pharmacy 37.8 ml/min; Est GFR (African American) 43.5; Est GFR (Non-African American) 37.5; Magnesium 2.1 mg/dl (1.8-2.4); Potassium 3.9 mmol/L (3.5-5.1)
[2020-02-09] MEDS: INSULIN GLARGINE SOLOSTAR 100 UNITS/ML 3 ML PEN SC SCH ×2 (08:46→20:16)
[2020-02-09] MEDS: INSULIN ASPART 100 UNITS/ML 3 ML PEN SC SCH ×4 (08:47→21:38)
[2020-02-09] MEDS: AMOXICILLIN 500 MG CAP PO SCH ×3 (09:16→20:15)
[2020-02-09] MEDS: ROSUVASTATIN CALCIUM 20 MG TAB PO SCH (09:17)
[2020-02-09] MEDS: SOTALOL HCL 80 MG TAB PO SCH ×2 (09:17→20:15)
[2020-02-09] MEDS: dexAMETHasone 1 MG TAB PO SCH (09:18)
[2020-02-09] MEDS: TAMSULOSIN HCL 0.4 MG CAP PO SCH (09:19)
[2020-02-09] MEDS: ASPIRIN 81 MG ECTAB PO SCH (09:19)
[2020-02-09] MEDS: CHOLECALCIFEROL 1,000 UNITS 25 MCG TAB PO SCH (09:20)
[2020-02-09] MEDS: MULTIVITAMIN TAB PO SCH (09:20)
[2020-02-09] MEDS: PANTOprazole 40 MG TAB PO SCH (09:20)
[2020-02-09] MEDS: ASCORBIC ACID 500 MG TAB PO SCH (09:20)
[2020-02-09] MEDS: GABAPENTIN 300 MG CAP PO SCH ×2 (09:20→20:15)
[2020-02-09] MEDS: lisinopriL 20 MG TAB PO SCH (09:21)
[2020-02-09] MEDS: DOXYCYCLINE HYCLATE 100 MG CAP PO SCH ×2 (09:33→20:15)
--- NOTE | 2020-02-09 09:53 | Pharmacy Report ---
Pharmacy Glycemic Short Note 2 - Date of Service February 09, 2020 - Glycemic Short BSG Results (Last 24 hours): OUTPATIENT ANTIDIABETIC REGIMEN: * Lantus 20 units SQ qAM + Novolin R SQ SSI + Metformin 1000 mg PO BIDM * 8.6% (02/06/2020) ASSESSMENT: 02/08: * BSGs yesterday were well controlled: [id number] mg/dL * Received a total of 76 units of insulin (35 units basal + 41 units bolus) * Due to BSG of 71 mg/dL at dinner, evening pharmacist adjusted CR from 3 to 4 * Fasting BSG this AM was 97 mg/dL - well controlled * Patient's basal regimen was decreased by ~25% yesterday for large drop in fasting BSG. Will further reduce basal dose today by ~15% given continued decrease in fasting BSGs over the past three days (215-110-97 mg/dL). * No adjustments necessary to correctional/prandial insulin * Patient does continue on 10-day course of Dexamethasone 6 mg PO qAM. Today is day #4. 02/07: * Mr Enriquez is an 79 y/o M with T2DM on insulin and metformin who was admitted for COVID-19. * Insulin requirements have been steadily rising -- from 47 units on 02/06/20 (38 units of basal and 9 units of basal) to 97 units on 02/07/2020 (46 units of basal and 51 units of bolus). * Patient's BSG's yesterday ranged from 172-327 mg/dL. Fasting today is 110 mg/dL (compared to 215 mg/dL yesterday) and lunch was 111 mg/dL. * Evening pharmacist tightened Novolog yesterday to CF 10 and CR of 3. Attempted to use NPH this morning to off-set hyperglycemia from steroids but patient declined. Tightened carbohydrate ratio further to CR of 3. * For Lantus -- patient was on weight-based stress of 3 Lantus. this produced a 100 point drop in fasting BSGs. Reduce dose by about 30%. Continue split dosing for now to allow for easier transition back to once daily. PLAN FOR INPATIENT GLYCEMIC CONTROL: * Hold outpatient oral diabetes medications * Basal insulin - decrease by ~15% * Lantus 15 units SQ BID * Bolus insulin - no change * NovoLog per scale ACHS or Q6hrs while NPO * Goal Range: Low 110 mg/dL - High 140 mg/dL * Correction Factor: 10 mg/dL/unit * Nutritional / Prandial insulin per carb ratio of 1 unit per 4 grams CHO consumed PLAN FOR DISCHARGE: * HbA1c from this admission is 8.6% (no other HbA1c's found to compare to). Ideally, the goal HbA1c for this patient would be < 8.0% given age and comorbidities. * Appreciate CDE's discharge recommendations. Patient will need to hold Metfo rmin until signs/symptoms of COVID-19 have resolved and 14-day quarantine period is over. Given patient's current eGFR, agree with only restarting Metformin at a reduced dose or possibly discontinuing medication entirely. * Patient will likely require adjustments to insulin dosing at discharge given HbA1c (and especially if Metformin is discontinued or the dose is reduced). Patient is on a 10-day course of Dexamethasone currently which is likely effecting BSG values while inpatient. Will continue to trend insulin requirements while inpatient to make a safe and effective recommendation for insulin adjustments upon discharge.
[2020-02-09] MEDS: ZINC SULFATE 220 MG CAPSULE PO SCH (10:41)
[2020-02-09] MEDS: SODIUM CHLORIDE 0.9% 1000ML 1,000 ML IV SCH ×2 (10:42→18:07)
[2020-02-09] MEDS ORDERED: DOXYCYCLINE HYCLATE 100 MG CAP PO ONE (12:00)
[2020-02-09] MEDS ORDERED: COUGH DROP (SUGAR FREE) LOZ 24 LOZ/1 BOX BUCCAL STA (12:59)
[2020-02-09] MEDS ORDERED: COUGH DROP (SUGAR FREE) LOZ 24 LOZ/1 BOX BUCCAL ONE (15:52)
[2020-02-09] MEDS: POLYETHYLENE (MIRALAX) 17 GM PACK PO PRN (16:38)
--- NOTE | 2020-02-09 18:09 | Hospitalist Progress Note ---
Date of Service February 09, 2020 Assessment & Plan (1) Sepsis: Resuscitated. afebrile and clinically improved. (2) COVID-19: Oxygen requirement has resolved. He is wearing the oxygen to feel better but doesn't need it. Still with a small oxygen requirement that has not worsened. Tolerating steroids. Diarrhea has resolved. Cough, fevers, and chills have resolved. Blood cultures are negative. (3) Pneumonia: likely viral 2/2 COVID with negative procalcitonin. Repeat CXR with no evidence of focal lobar consolidation. Changed to Augmentin (4) Acute otitis media: Sore throat is much better. Sudafed was helpful with drying him up. GI cocktail/sudafed for symptom control. augmentin (5) Back pain: Likely related to spinal stenosis, outpatient follow-up recommended. PT/OT trial as outpatient also recommended. (6) Elevated troponin: Demand ischemia is most likely in setting of sepsis with COVID infection. Serial trop was flat without rise overnight and he continues to deny chest pain, etc. No futher cardiac workup during this hospitalization. (7) RHIANNON (acute kidney injury): Likely related to recent diarrhea in setting of sepsis. Improved but then ACEI was restarted with good BP control. Creat now 1.5. Giving small amt of IVF overnight with repeat BMP in am. (8) S/P CABG (coronary artery bypass graft): Cont medical management per home regimen including ASA, ACEI and Crestor. No BB in setting of sotalol use. 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 He completed neoadjuvant combined chemotherapy with weekly paclitaxel carboplatin x6 cycles and radiation treatment of x28 in [place] he declined surgical intervention. Follow-up upper GI endoscopy showed no residual carcinoma in October 2019. Currently off treatment and followed with observation since July [address] Cosme Hernandez. (10) Paroxysmal atrial fibrillation: Sees Dr. Clayton regularly. He is currently in sinus rhythm. Cont home sotalol, monitor QTC on EKG which improved from admission. Pt refused AC in the past. (11) Diabetes mellitus, type 2: At goal on intensive insulin regimen while in the hospital. (12) DVT prophylaxis: Heparin DNR Dispo-likely will be here through the weekend pending clinical improvement on therapy. Nikki Townsend DO [place]ist Admission and Anticipated Discharge Date Admission Date: February 05, 2020 Subjective feels much better and back to normal today no reports of issues discussed dispo to home in am pending [facility] Review of Systems Review of Systems: All systems reviewed & are unremarkable except as noted in Subjective Physical Exam Physical Exam: CONSTITUTIONAL: WNWD, vitals as above, generally well-a ppearing EYES: normal conjunctivae, no scleral icterus ENT: external ear and nose normal RESPIRATORY: clear to auscultation bilaterally, no crackles, rales or wheezes, normal respiratory effort CARDIOVASCULAR: regular rate and rhythm, S1 and 2 heard without murmurs, gallops or rubs, no JVD, no peripheral edema CHEST: inspection of chest was normal GASTROINTESTINAL: soft, protuberant, nontender, no guarding MUSCULOSKELETAL: strength 5/5 throughout, head is normocephalic and atraumatic, neck supple, normal palpation of chest wall without tenderness SKIN: warm and dry NEUROLOGIC: no facial palsy, no dysarthria. CN 2-12 grossly intact, no sensory deficit, normal cognition, normal speech, no tremor. PSYCHIATRIC: alert cooperative and oriented to person, place and time. Results & Data Results & Data ([facility]) Vital Signs (Past 12 Hours) Vital Signs Temp Pulse Resp BP Pulse Ox 02/09/20 15:57 37.1 C 57 L 14 137/57 L 97 02/09/20 09:05 36.7 C 65 18 154/70 H 98 Laboratory Results Short CBC 02/09/20 Range/Units 06:11 WBC 4.73 L (4.8-10.8) K/uL Hgb 11.0 L (14.0-18.0) g/dL Hct 32.4 L (42-52) % Plt Count 179 (130-400) K/uL BMP 02/09/20 06:11 Sodium 140 Potassium 3.9 Chloride 108 H Carbon Dioxide 26 BUN 34 H Creatinine 1.69 H Glucose 99 Calcium 9.0 Medications Administered Current Inpatient Medications Acetaminophen (Acetaminophen 325 Mg Tab) 650 mg PO Q4H PRN PRN Reason: Pain or Fever Stop: 03/06/20 19:11 Last Admin: 02/08/20 21:04 Dose: 650 mg Documented by: Amoxicillin (Amoxicillin 500 Mg Cap) 500 mg PO TID [facility] Stop: 02/11/20 21:59 Last Admin: 02/09/20 13:00 Dose: 500 mg Documented by: Ascorbic Acid (Ascorbic Acid 500 Mg Tab) 500 mg PO QAM [facility] Stop: 03/07/20 12:29 Last Admin: 02/09/20 09:20 Dose: 500 mg Documented by: Aspirin (Aspirin 81 Mg Ectab) 81 mg PO QAM [facility] Stop: 03/07/20 08:59 Last Admin: 02/09/20 09:19 Dose: 81 mg Documented by: Al Hydrox/Mg Hydrox/Simethicone 72 ml/ Lidocaine HCl 24 ml/ [employer] 1 ea 0 ml PO Q4H PRN PRN Reason: Sore Throat Stop: 03/08/20 00:11 Dexamethasone (Dexamethasone 1 Mg Tab) 6 mg PO DAILY [facility] Stop: 02/15/20 09:01 Last Admin: 02/09/20 09:18 Dose: 6 mg Documented by: Dextrose (Dextrose 50% 50 Ml Syringe) 25 - 50 ml IV UD PRN; Protocol PRN Reason: Hypoglycemia Protocol Stop: 03/06/20 19:11 Doxycycline Hyclate (Doxycycline Hyclate 100 Mg Cap) 100 mg PO BID@0800,2000 [facility] Stop: 02/11/20 20:01 Gabapentin (Gabapentin 300 Mg Cap) 300 mg PO BID [facility] Stop: 03/06/20 20:59 Last Admin: 02/09/20 09:20 Dose: 300 mg Documented by: Glucagon (Glucagon For Inj 1 Mg Vial) 1 mg SQ UD PRN; Protocol PRN Reason: Hypoglycemia Protocol Stop: 03/06/20 19:11 Glucose (Glucose 10 Tabs/Tube) 4 - 8 tabs PO UD PRN; Protocol PRN Reason: Hypoglycemia Protocol Stop: 03/06/20 19:11 Glucose (Glucose 40% Gel 15 Gm Tube) 15 - 30 gm PO UD PRN; Protocol PRN Reason: Hypoglycemia Protocol Stop: 03/06/20 19:11 Sodium Chloride (Nss 1000ml) 1,000 mls @ 125 mls/hr IV .Q8H [facility] Stop: 02/10/20 01:14 Last Infusion: 02/09/20 14:25 Dose: 125 mls/hr Documented by: Insulin Aspart (Insulin Aspart 100 Units/Ml 3 Ml Pen) 0 units SC ACHS [facility]; Protocol Stop: 03/06/20 19:29 Last Admin: 02/09/20 12:44 Dose: 11 units Documented by: Insulin Glargine (Insulin Glargine Solostar 100 Units/Ml 3 Ml Pen) 15 units SC BID [facility]; Protocol Stop: 03/10/20 08:59 Last Admin: 02/09/20 08:46 Dose: 15 units Documented by: Lisinopril (Lisinopril 20 Mg Tab) 20 mg PO [facility] Stop: 03/08/20 09:44 Last Admin: 02/09/20 09:21 Dose: 20 mg Documented by: Miscellaneous (Carbohydrates For Hypoglycemia ) 15 - 30 gm PO UD PRN PRN Reason: Hypoglycemia Protocol Stop: 03/06/20 19:11 Miscellaneous Information (Pharmacy Glycemic Mgmt Consult) 1 ea N/A [facility] Stop: 03/08/20 16:25 Morphine Sulfate (Morphine Sulfate 2 Mg/Ml Carp) 2 mg IV Q2H PRN PRN Reason: pain or chest pain Stop: 02/19/20 19:11 Multivitamins (Multivitamin Tab) 1 tab PO [facility] Stop: 03/07/20 08:59 Last Admin: 02/09/20 09:20 Dose: 1 tab Documented by: Nitroglycerin (Nitroglycerin Sl 0.4 Mg/Tab Tab) 0.4 mg SL UD PRN PRN Reason: Chest Pain Stop: 03/06/20 19:11 Oxycodone HCl (Oxycodone Hcl Ir 5 Mg Tab (Immediate Release)) 5 mg PO Q4H PRN PRN Reason: Severe Pain Stop: 02/19/20 20:57 Pantoprazole Sodium (Pantoprazole 40 Mg Tab) 40 mg PO [facility] Stop: 03/07/20 08:59 Last Admin: 02/09/20 09:20 Dose: 40 mg Documented by: Phenol (Chloraseptic 1.4% Soln 180 Ml Btl) 2 sprays MT Q4H PRN PRN Reason: sore throat Stop: 03/06/20 19:11 Last Admin: 02/05/20 21:39 Dose: 2 sprays Documented by: Polyethylene Glycol (Polyethylene (Miralax) 17 Gm Pack) 17 gm PO Q12H PRN PRN Reason: Constipation Stop: 03/09/20 17:16 Last Admin: 02/09/20 16:38 Dose: 17 gm Documented by: Promethazine HCl (Promethazine Hcl 25 Mg Tab) 25 mg PO Q6H PRN PRN Reason: Nausea And Vomiting Stop: 03/06/20 20:45 Rosuvastatin Calcium (Rosuvastatin Calcium 20 Mg Tab) 20 mg PO [facility] Stop: 03/07/20 08:59 Last Admin: 02/09/20 09:17 Dose: 20 mg Documented by: Sotalol HCl (Sotalol Hcl 80 Mg Tab) 40 mg PO BID [facility] Stop: 03/06/20 20:59 Last Admin: 02/09/20 09:17 Dose: 40 mg Documented by: Tamsulosin HCl (Tamsulosin Hcl 0.4 Mg Cap) 0.4 mg PO [facility] Stop: 03/07/20 08:59 Last Admin: 02/09/20 09:19 Dose: 0.4 mg Documented by: Vitamin D (Cholecalciferol 1,000 Units 25 Mcg Tab) 1,000 units PO [facility] Stop: 03/07/20 12:29 Last Admin: 02/09/20 09:20 Dose: 1,000 units Documented by: Zinc Sulfate (Zinc Sulfate 220 Mg Capsule) 220 mg PO [facility] Stop: 03/07/20 12:29 Last Admin: 02/09/20 10:41 Dose: 220 mg Documented by:
[2020-02-09] MEDS: ACETAMINOPHEN 325 MG TAB PO PRN (19:15)
[2020-02-10 06:12] LABS: BUN Creatinine Ratio 19.5 (10-20); Calcium 8.4 mg/dl (8.5-10.1); Creatinine Clr Calc Pharmacy 43.5 ml/min; Est GFR (African American) 51.5; Est GFR (Non-African American) 44.4; Potassium 3.7 mmol/L (3.5-5.1)
[2020-02-10] MEDS: AMOXICILLIN 500 MG CAP PO SCH ×2 (08:49→13:55)
[2020-02-10] MEDS: DOXYCYCLINE HYCLATE 100 MG CAP PO SCH (08:49)
[2020-02-10] MEDS: SOTALOL HCL 80 MG TAB PO SCH (08:50)
[2020-02-10] MEDS: ROSUVASTATIN CALCIUM 20 MG TAB PO SCH (08:51)
[2020-02-10] MEDS: dexAMETHasone 1 MG TAB PO SCH (08:51)
[2020-02-10] MEDS: MULTIVITAMIN TAB PO SCH (08:52)
[2020-02-10] MEDS: ASPIRIN 81 MG ECTAB PO SCH (08:52)
[2020-02-10] MEDS: TAMSULOSIN HCL 0.4 MG CAP PO SCH (08:52)
[2020-02-10] MEDS: ASCORBIC ACID 500 MG TAB PO SCH (08:53)
[2020-02-10] MEDS: GABAPENTIN 300 MG CAP PO SCH (08:53)
[2020-02-10] MEDS: PANTOprazole 40 MG TAB PO SCH (08:53)
[2020-02-10] MEDS: ZINC SULFATE 220 MG CAPSULE PO SCH (08:54)
[2020-02-10] MEDS: lisinopriL 20 MG TAB PO SCH (08:54)
[2020-02-10] MEDS: CHOLECALCIFEROL 1,000 UNITS 25 MCG TAB PO SCH (08:54)
[2020-02-10] MEDS ORDERED: INSULIN GLARGINE SOLOSTAR 100 UNITS/ML 3 ML PEN SC SCH (09:00)
[2020-02-10] MEDS: INSULIN ASPART 100 UNITS/ML 3 ML PEN SC SCH ×2 (09:05→13:55)
--- NOTE | 2020-02-10 12:03 | Discharge Summary ---
Date of Service February 10, 2020 Admission HPI Per Admitting Provider The patient is an 79-year-old man with a history of paroxysmal atrial fibrillation, type 2 diabetes mellitus, coronary artery disease status post CABG, and a history of esophageal cancer reported to be in remission who presents with a significant sore throat, runny nose and decongestion, recent diarrhea over the last 1 to 2 days that the patient reports has now resolved, fever and chills, and acute on chronic lower back pain with associated leg weakness. He specifically reports having some difficulties rising from a chair in the last couple of weeks. He has no saddle anesthesia and an MRI performed of the lower spine in the ER with and without contrast revealed postsurgical changes of discectomy and posterior laminectomy in the lower lumbar area with multilevel spondylitic changes and severe spinal stenosis noted at the L3-L4 level. The conus medullaris and cauda equina appear normal and there is no evidence of discitis, osteomyelitis, epidural abscess. The patient denied shortness of breath, cough (although he is now having productive cough of whitish phlegm which he feels is related to postnasal drip), chest pain, abdominal pain, bleeding issues. He is tolerating p.o. and denies nausea but is not excited about food. He is currently febrile with chills, however. Brother from [place] and had COVID and recently visited last week. His other brother is COVID positive who is from a skilled nursing. The patient likely developed symptoms on Sunday of this week, approximately 3 to 4 days ago. Some of the history and medicine reconciliation was performed with the daughter over the phone at the patient's request. His main concern is his severe sore throat and palliation of his lower back pain. He does have a slightly elevated troponin, but denies symptoms of ACS and has no EKG changes and this is in the setting of borderline sepsis. This is likely a demand ischemia in the setting of known CAD as opposed to ACS, however will place on telemetry and trend troponins overnight. Admission Exam Per Admitting Provider CONSTITUTIONAL: WNWD, vitals as above, generally ill-appearing EYES: EOMI bilaterally, PERRL, normal conjunctivae, no scleral icterus ENT: external ear and nose normal, oropharynx clear and not erythematous without exudates or enlarged tonsils. bilateral purulent effusions behind tympanic membrane without erythema or drainage present. TMs are reflective of light. No maxillary or ethmoid sinus tenderness NECK: trachea midline, no lymphadenopathy RESPIRATORY: clear to auscultation bilaterally, no crackles, rales or wheezes, normal respiratory effort CARDIOVASCULAR: regular rate and rhythm, S1 and 2 heard without murmurs, gallops or rubs, no JVD, no peripheral edema, heart sounds are distant and difficult to auscultate CHEST: inspection of chest was normal GASTROINTESTINAL: soft, protuberant, nontender, no guarding MUSCULOSKELETAL: strength 5/5 throughout, head is normocephalic and atraumatic, neck supple, normal palpation of chest wall without tenderness SKIN: warm and dry NEUROLOGIC: patellar DTRs could not elicit. BR 2+ bilat. PERRL, EOMI, no facial palsy, no dysarthria. CN 2-12 grossly intact, no sensory deficit, normal cognition, normal speech, no tremor. Gait was not assessed as he is a fall risk. PSYCHIATRIC: alert cooperative and oriented to person, place and time. Principal Diagnosis Sepsis COVID-19 Pneumonia Acute otitis media Back pain secondary to spinal stenosis Elevated troponin Acute kidney injury History of esophageal cancer Status post CABG Paroxysmal atrial fibrillation Diabetes Discharge Exam CONSTITUTIONAL: WNWD, vitals as above, generally well-appearing EYES: normal conjunctivae, no scleral icterus ENT: external ear and nose normal RESPIRATORY: clear to auscultation bilaterally, no crackles, rales or wheezes, normal respiratory effort CARDIOVASCULAR: regular rate and rhythm, S1 and 2 heard without murmurs, gallops or rubs, no JVD, no peripheral edema CHEST: inspection of chest was normal GASTROINTESTINAL: soft, protuberant, nontender, no guarding MUSCULOSKELETAL: strength 5/5 throughout, head is normocephalic and atraumatic, neck supple, normal palpation of chest wall without tenderness SKIN: warm and dry NEUROLOGIC: no facial palsy, no dysarthria. CN 2-12 grossly intact, no sensory deficit, normal cognition, normal speech, no tremor. PSYCHIATRIC: alert cooperative and oriented to person, place and time. At time of discharge he was ambulating and mentating at baseline. He was hemodynamically stable and afebrile and oxygenating well on room air. He was symptom-free for >48 hours and was sent home in stable condition with close primary care followup recommended. I did speak wtih both he and his daughter regarding the discharge instructions and continued self-quarantine. All questions were answered. Discharge Data Allergies Allergy/AdvReac Type Severity Reaction Status Date / Time No Known Allergies Allergy Verified 02/05/20 10:46 Consultations 02/05/20 14:40 ED Decision to Admit Stat 02/05/20 19:12 Consult Case Management - Discharge Planning Routine 02/05/20 19:35 Consult Orthopedic Surgery Routine Ordered Studies 02/05/20 10:11 MR lumbar spine wo/w con Stat 02/05/20 11:40 CT abd pelvis wo con Stat Hospital Course (1) Sepsis: Presented with sepsis 2/2 COVID pneumonia and acute otitis media. Resuscitated overnight with IVF and broad spectrum antibiotics. Afebrile and clinically improved and remained that way throughout his hospitalization. (2) COVID-19: Developed a small oxygen requirement early during hospitalization and dexamethasone was started. Initial diarrhea resolved with supportive care. Blood cultures are negative. (3) Pneumonia: likely viral 2/2 COVID with negative procalcitonin. Repeat CXR with no evidence of focal lobar consolidation. Changed broad abx to amox/doxy and given 5 day course with two extra days on discharge. Repeat CXR recommended in 4 weeks to ensure complete resolution of pneumonia. (4) Acute otitis media: Sore throat resolved. Sudafed was helpful with drying him up. GI cocktail/sudafed for symptom control. amox/doxy improved this greatly. Completed 5 days antibiotics with resolution of symptoms prior to discharge and two more days given at discharge as above. (5) Back pain: h/o esophageal cancer with acute worsening back pain so lumbar MRI p erformed revealnig evidence of lumbar spinal stenosis. Ortho spine consulted and recommended outpatient follow-up in the next couple of months. PT/OT also a good consideration. (6) Elevated troponin: Demand ischemia is most likely in setting of sepsis with COVID infection. Serial trop was flat without rise overnight and he continued to deny chest pain or shortness of breath. No further cardiac workup during this hospitalization. Outpatient echo may be considered in setting of COVID and its uncertain long- term effects on the heart. (7) RHIANNON (acute kidney injury): Creat up from baseline related to ACEI use and steroids. This was almost to baseline at time of discharge. Recommend one week followup to ensure complete resolution. (8) Paroxysmal atrial fibrillation: Sees Dr. Clayton regularly. He is currently in sinus rhythm. Cont home sotalol, EKG revealed an improvement of QTc since admission from 571 to 492. Pt refused AC in the past. Total Time Total Time Spent Total Time Spent (In Minutes): 60 Total Time Includes: Examination of the Patient, Discharge Planning, Medication Reconciliation and Communication With Other Providers Discharge Plan Discharge Items Patient Disposition: Home - Self-Care Reason For Visit: COVID+ Discharge Diagnosis: Sepsis COVID-19 Pneumonia Acute otitis media Back pain secondary to spinal stenosis Elevated troponin Acute kidney injury History of esophageal cancer Status post CABG Paroxysmal atrial fibrillation Diabetes Condition on Discharge: Good Activity: Resume your previous activity Non-emergency contact: Primary Care Provider Call non-emergency contact if: you have any medication questions, your symptoms worsen and you have a fever Follow-up/Referrals: Favian Calero MD [Primary Care Provider] - 02/16/20 2:20 pm (Date & Time 02/16/2020 2:20 PM Provider Donna Valdez formerly [facility] PLEASE NOTE: THIS IS A TELEVIDEO CALL. PLEASE VIEW AN EMAIL SENT TO [email or web address] AND FOLLOW THE INSTRUCTIONS. IF YOU HAVE ANY QUESTIONS, PLEASE CALL . ) Diet: Carb Consistent or DM2 and Heart Healthy Addtl Attending Provider Instructions: Please take all medications as instructed on discharge list below. It is important that you follow-up with your primary care doctor to touch base after this hospitalization and ensure you are still doing well. You are scheduled for an appointment with Dr. 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 It may be better to opt for a telehealth visit at that time. Please follow all COVID-19 quarantine instructions per CDC guidelines. These are listed below. It is recommended that you have a repeat chest x-ray in 4 weeks to ensure complete resolution of pneumonia. This may be ordered by your primary care doctor. Nonfasting blood work in 1 to 2 weeks is also recommended with your recent history of kidney injury. At the time of discharge her kidney function was improved but not quite back to baseline. This also may be ordered by her primary care doctor. Your creatinine at time of discharge was 1.47. It was a pleasure taking care of you! Please call if you have any questions or problems. You can reach a [facility] hospitalist on duty at [facility] 24 hours a day by calling [phone]. Take care of yourself. Nikki Townsend, DO [facility] Hospital[facility] Addtl Forge Operator Provider Instructions: Home Isolation COVID-19 Instructions The following information about Home Isolation is from the CDC Website: https://www.cdc.gov/coronavirus/2019-ncov/hcp/yyqychvw-umyztjo-qroabf.html Stay home except to get medical care People who are mildly ill with COVID-19 are able to isolate at home during their illness. You should restrict activities outside your home, except for getting medical care. Do not go to work, school, or public areas. Avoid using public transportation, ride-sharing, or taxis. Separate yourself from other people and animals in your home People: As much as possible, you should stay in a specific room and away from other people in your home. Also, you should use a separate bathroom, if available. Animals: You should restrict contact with pets and other animals while you are sick with COVID-19, just like you would around other people. Although there have not been reports of pets or other animals becoming sick with COVID-19, it is still recommended that people sick with COVID-19 limit contact with animals until more information is known about the virus. When possible, have another member of your household care for your animals while you are sick. If you are sick with COVID-19, avoid contact with your pet, including petting, snuggling, being kissed or licked, and sharing food. If you must care for your pet or be around animals while you are sick, wash your hands before and after you interact with pets and wear a face mask. Call ahead before visiting your doctor If you have a medical appointment, call the healthcare provider and tell them that you have or may have COVID-19. This will help the healthcare providers office take steps to keep other people from getting infected or exposed. Wear a face mask You should wear a face mask when you are around other people (e.g., sharing a room or vehicle) or pets and before you enter a healthcare providers office. If you are not able to wear a face mask (for example, because it causes trouble breathing), then people who live with you should not stay in the same room with you, or they should wear a face mask if they enter your room. Cover your coughs and sneezes Cover your mouth and nose with a tissue when you cough or sneeze. Throw used tissues in a lined trash can. Immediately wash your hands with soap and water for at least 20 seconds or, if soap and water are not available, clean your hands with an alcohol-based hand field gauger that contains at least 60% alcohol. Clean your hands often Wash your hands often with soap and water for at least 20 seconds, especially after blowing your nose, coughing, or sneezing; going to the bathroom; and before eating or preparing food. If soap and water are not readily available, use an alcohol-based hand field gauger with at least 60% alcohol, covering all surfaces of your hands and rubbing them together until they feel dry. Soap and water are the best option if hands are visibly dirty. Avoid touching your eyes, nose, and mouth with unwashed hands. Avoid sharing personal household items You should not share dishes, drinking glasses, cups, eating utensils, towels, or bedding with other people or pets in your home. After using these items, they should be washed thoroughly with soap and water. Clean all high-touch surfaces everyday High touch surfaces include counters, tabletops, doorknobs, bathroom fixtures, toilets, phones, keyboards, tablets, and bedside tables. Also, clean any surfaces that may have blood, stool, or body fluids on them. Use a household cleaning spray or wipe, according to the label instructions. Labels contain instructions for safe and effective use of the cleaning product including precautions you should take when applying the product, such as wearing gloves and making sure you have good ventilation during use of the product. Monitor your symptoms Seek prompt medical attention if your illness is worsening (e.g., difficulty breathing).Beforeseeking care, call your healthcare provider and tell them that you have, or are being evaluated for, COVID-19. Put on a face mask before you enter the facility. These steps will help the healthcare providers office to keep other people in the office or waiting room from getting infected or exposed. Ask your healthcare provider to call the local or state health department. Persons who are placed under active monitoring or facilitated self- monitoring should follow instructions provided by their local health department or occupational health professionals, as appropriate. When working with your local health department check their available hours. If you have a medical emergency and need to call 911, notify the dispatch personnel that you have, or are being evaluated for COVID-19. If possible, put on a face mask before emergency medical services arrive. Discontinuing home isolation Patients with confirmed COVID-19 should remain under home isolation precautions until the risk of secondary transmission to others is thought to be low. The decision to discontinue home isolation precautions should be made on a [id number] basis, in consultation with healthcare providers and state and local health departments. PER CURRENT CDC GUIDELINES, YOU MAY COME OFF ISOLATION TEN DAYS AFTER YOUR DIAGNOSIS, WEDNESDAY 02/14, LONG YOU ARE WITHOUT SYMPTOMS OR FEVER FOR AT LEAST 3 DAYS PRIOR TO DISCONTINUING ISOLATION. Pending Studies at Discharge: No Stand-Alone Forms: [facility] Medications and DC Order Prescriptions: New amoxicillin 500 mg Capsule 500 mg PO TID Qty: 6 RF: 0 doxycycline hyclate 100 mg Capsule 100 mg PO BID@0800,2000 Qty: 4 RF: 0 Continued sotalol 80 mg tablet 40 mg PO BID RF: 0 omeprazole 20 mg capsule,delayed release(DR/EC) 20 mg PO DAILY RF: 0 multivitamin Tablet 1 tab PO QAM RF: 0 Lantus U-100 Insulin 100 unit/mL Solution 20 unit SUBCUT QAM RF: 0 lisinopril 20 mg tablet 20 mg PO QAM RF: 0 aspirin 81 mg Tablet,Delayed Release (Dr/Ec) 81 mg PO QAM RF: 0 acetaminophen [Tylenol Extra Strength] 500 mg Tablet 500 - 1,000 mg PO Q6H PRN (Reason: Pain) RF: 0 tamsulosin 0.4 mg capsule 0.4 mg PO QAM RF: 0 metformin 1,000 mg tablet 1,000 mg PO BIDM RF: 0 Novolin R Regular U-100 Insuln 100 unit/mL Solution 1 sliding scale dose SUBCUT USEASDIRECTD RF: 0 gabapentin 300 mg capsule 300 mg PO BID RF: 0 rosuvastatin [Crestor] 20 mg Tablet 20 mg PO QAM RF: 0 Discharge Orders: Discharge Order (Routine); Ordered 02/10/20 Ordered By: Nikki Townsend Admission Data Admit Date/Time: 02/05/20 15:57 Attending Provider: Nikki Townsend Admit Provider: Nikki Townsend Primary Care Provider: Favian Calero Other Providers: Nikki Townsend ; Claudio Miranda Other Interventions: Discharge Summary Assessment (RN) Last Done: 02/10/20 15:08
[2020-02-10] MEDS ORDERED: INSULIN GLARGINE SOLOSTAR 100 UNITS/ML 3 ML PEN SC ONE (13:30)
== END 2020-02-10 17:24 | disposition home or self-care (01) | DRG 177 ==
LOC: ED 09:41 → 2S 15:57 → 3N 02-07 16:11